=== PATIENT | male | born 1960 | race African-American/Black ===

== ENCOUNTER 2019-09-06 20:53 | Inpatient (IN) | payer MEDICARE ==
[~2019-09-06 20:53] MED LIST: Iopamidol 370 76% 100 ML VIAL ONE
[2019-09-06] MEDS ORDERED: Fentanyl 100 MCG/2 ML VIAL ONE (21:09)
[2019-09-06] MEDS ORDERED: Norepinephrine 8 MG in Dextrose 5% in Water 242 ML IVPB PRN (21:14)
[2019-09-06] MEDS ORDERED: fentaNYL Citrate/PF 2,000 MCG in Sodium Chloride 0.9% 60 ML IV SCH (21:15)
--- NOTE | 2019-09-06 21:16 | RAD ---
Chest AP view INDICATION: Found down and unresponsive COMPARISON: Prior exam dated July 18, 2019 FINDINGS: Lungs:There is perihilar airspace opacities. Cardiac silhouette:There is moderate cardiomegaly Pulmonary vasculature:Vasculature there is prominent pulmonary vascular congestion Pleural spaces:No pleural effusion or pneumothorax is demonstrated. Upper abdomen:No abnormality seen. Osseous structures: No acute osseous abnormality. Additional findings:The patient is intubated with the ET tube tip is seen 5.3 cm from the johanny. IMPRESSION: Moderate cardiomegaly, prominent pulmonary vascular congestion and perihilar edema.
[2019-09-06 21:19] LABS: #Eosinphils 0.1 thou/uL (0.0-0.7); #Lymphocytes 0.7 thou/uL (1.20-3.40); #Monocytes 0.3 thou/uL (0.11-0.59); %Basophils 0.2 % (0.0-1.0); %Eosinophils 1.3 % (0.0-10.0); %Lymphocytes 13.1 % (21.0-51.0); %Monocytes 6.5 % (0.0-10.0); %Neutrophils 78.9 % (42.0-75.0); Hemoglobin 8.7 g/dL (14.0-18.0); Mean Corpuscular HGB CONC 31.8 g/dL (32.0-36.0); Mean Corpuscular Hemoglobin 30.5 pg (27.0-31.0); Mean Corpuscular Volume 96.1 fL (78.0-98.0); Mean Platelet Volume 8.6 fL (7.4-10.4); Platelet Count 150 thou/uL (130-400); Red Blood Cell (RBC) Count 2.86 mill/uL (4.70-6.10); White Blood Cell (WBC) Count 5.1 thou/uL (4.8-10.8)
[2019-09-06 21:29] LABS: PTT 65.5 SEC (22.9-36.1)
[2019-09-06 21:37] LABS: D-Dimer Test 11.94 *mcg/mL (0.27-0.43)
[2019-09-06 21:42] LABS: Phosphorus 4.3 mg/dL (2.3-4.7); Prothrombin Time 88.6 SEC (12.0-14.7)
[2019-09-06 21:43] LABS: INR-International Normal Ratio 11.7
[2019-09-06 21:46] LABS: ALT (SGPT) 170 U/L (8-55); AST (SGOT) 258 U/L (5-34); Albumin 3.3 g/dL (3.5-5.0); Alkaline Phosphatase 121 U/L (40-110); Anion Gap 17 mmol/L (10-20); BUN (Urea Nitrogen) 30 mg/dL (8.4-25.7); Bilirubin, Total 0.6 mg/dL (0.2-1.2); CK (CPK) 80 U/L (30-200); Calc. Creatinine Clearance 0 mL/min (70-130); Calcium 8.4 mg/dL (7.8-10.44); Carbon Dioxide 30 mmol/L (22-29); Chloride 100 mmol/L (98-107); Estimated GFR-MDRD 38; Globulin 3.1 g/dL (2.4-3.5); Glucose 134 mg/dL (70-105); Magnesium 1.8 mg/dL (1.6-2.6); Potassium 4.7 mmol/L (3.5-5.1); Protein, Total 6.4 g/dL (6.0-8.3); Sodium 142 mmol/L (136-145)
--- NOTE | 2019-09-06 21:52 | RAD ---
Chest AP view INDICATION: Central line placement COMPARISON: September 06, 2019 at 8:59 PM FINDINGS: Lungs:There is worsening perihilar airspace opacities Cardiac silhouette:Cardiomegaly persists Pulmonary vasculature:Prominent Pleural spaces:No pleural effusion or pneumothorax is demonstrated. Upper abdomen:No abnormality seen. Osseous structures: No acute osseous abnormality. Additional findings:ET tube tip is unchanged. There is a new right IJ central venous catheter project ing in the region of the SVC. IMPRESSION: Worsening bilateral perihilar airspace opacities suspicious for worsening edema. ET tube and right IJ central venous catheter as above.
[2019-09-06] MEDS ORDERED: Furosemide 40 MG/4 ML VIAL ONE (22:03)
[2019-09-06 22:15] LABS: Actual Bicarbonate (HCO3a) 35.1 mEq/L (22-28); Analyzer IN Cardio ER; Calcium, Ionized 1.12 mmol/L (1.12-1.30); Carboxyhemoglobin (COHb) 0.4 gm% (0.0-3.0); Hemoglobin (Hb) 10.8 g/dL (14.0-18.0); O2 Tension (PaO2) 154.1 mmHg (> 80.0); Potassium - ABG Lab 4.19 mmol/L (3.70-5.30); pH, Arterial 7.37 (7.35-7.45)
[2019-09-06] MEDS ORDERED: ADMIXTURE FEE IV SCH (22:15)
[2019-09-06] MEDS ORDERED: HUMAN PROTHROMBIN COMPLX IV SCH (22:15)
[2019-09-06 22:26] LABS: CO2 Tension 62.8 mmHg (35.0-45.0); Puncture Site ALINE
[2019-09-06] MEDS ORDERED: Cefepime 2 GM VIAL ONE (22:29)
[2019-09-06 22:43] LABS: Free T4 (Free Thyroxine) 0.87 ng/dL (0.70-1.48); Thyroid Stimulating Hormone 1.7251 uIU/mL (0.35-4.94)
--- NOTE | 2019-09-06 23:12 | CT ---
CT Brain WO Con: 09/06/2019 8:59 PM CLINICAL HISTORY: Altered mental status and unresponsive after CPR. IMAGING TECHNIQUE: Multiple CT images were obtained of the brain without IV contrast. COMPARISON: None. FINDINGS: Brain: No acute infarct or hemorrhage is evident. No midline shift. There is moderate to severe chr onic small vessel white matter ischemic change involving the region of the paramedian thiago and both cerebral hemispheres. Ventricles: Normal. No hydrocephalus.. There is a cavum septum pellucidum. Skull: Intact.. Visualized Paranasal sinuses: Clear.. Mastoid air cells:Clear. Extracranial soft tissues:Normal. IMPRESSION: No acute intracranial abnormality. Moderate to severe chronic small vessel white matter ischemic peña ge.
--- NOTE | 2019-09-06 23:17 | CT ---
CTA Angio Chest W WO Con 09/06/2019 9:00 PM Indication: Unresponsive following CPR Technique: Multiple CTA images were obtained of the thorax with IV contrast. 3-D rendering: MIP mercedes nstructed images were created and reviewed. Comparison: Prior CT PE dated July 18, 2019 Findings: Pulmonary arteries: No central or segmental pulmonary embolus is evident. Heart and Aorta: Normal appearing. Mediastinum:There is a right IJ central venous catheter and ET tube tip. There is a gastric catheter coiled within the proximal esophagus. Lungs:There is bilateral lower lobe airspace consolidation. There is perihilar edema. Pleural space: There are small bilateral pleural effusions. Upper Abdomen: There is an IVC filter within the suprarenal IVC. Osseous Structures: No acute osseous abnormality. There is scattered degenerative and osteoarthritic change present. Soft tissues:No abnormality. Other findings:None. Impression: No central or segmental pulmonary embolus. Bibasilar airspace consolidation suspicious for aspiration. Bilateral perihilar airspace edema with bilateral pleural effusions consistent with CHF. Gastric catheter coiled within the proximal esophagus. IVC filter within the suprarenal IVC.
--- NOTE | 2019-09-06 23:23 | CT ---
CT OF THE ABDOMEN AND PELVIS WITH IV CONTRAST INDICATION: History of bradycardic arrest and unresponsiveness after CPR COMPARISON: None FINDINGS: ABDOMEN: Lung bases: Bibasilar airspace consolidation with small bilateral pleural effusions. There is a small pericardial effusion Liver: There is edema surrounding the liver. No focal hepatic lesion. There is a suprarenal IVC filte r. Gallbladder: Gallbladder wall is thickened small stone. Pancreas: Normal. Adrenal glands: Normal. Spleen: Normal. Kidneys and ureters: There is a horseshoe kidney. No hydronephrosis. Vasculature: There is an endovascular stent projecting in the region of the left common iliac vein. Lymph nodes:No lymphadenopathy. Free fluid in abdomen:There is mild free fluid within the abdomen and pelvis. PELVIS: Small and large bowel: There are scattered colonic diverticula without evidence of active diverticuli tis. Appendix:Normal Bladder: Decompressed with a Suarez catheter Rectal and perirectal soft tissues:Normal. Reproductive structures: Normal. Free fluid in pelvis: Mild free fluid in the pelvis Lymphadenopathy pelvis: Shotty appearing pelvic lymph nodes are present. Osseous structures: No acute osseous abnormality. No destructive osteolytic or osteoblastic lesion i s identified. There is scattered degenerative and osteoarthritic changes. Soft tissues:There is a vascular catheter that projects to the level of the right common femoral rafy ry on image 77 of series 3. It is difficult to determine if this catheter is within the right common femoral artery. There is diffuse mild anasarca. IMPRESSION: 1. Bibasilar airspace consolidation small bilateral pleural effusions. Consolidations are suspicious for aspiration. 2. Small pericardial effusion. Mild ascites and anasarca. 3. Cholelithiasis. There is mild gallbladder wall thickening which may be related to the cardiac dysf unction. 4. IVC filter an endograft stent in the left common iliac vein. There is a central venous catheter pr ojects to the level of the right common femoral artery. Recommend correlation. 5. Horseshoe kidney without evidence of hydronephrosis
[2019-09-06] MEDS ORDERED: Phytonadione 10 MG in Sodium Chloride 0.9% 50 ML IVPB SCH (23:45)
[2019-09-06 23:54] LABS: Bilirubin Negative (Negative); Blood, Urine 2+ (Negative); Clarity Clear (Clear); Glucose, Urine (Dipstick) Normal (Negative); Leukocyte 25 Leu/uL (Negative); Mucous/LPF Rare LPF (<2+); Nitrite Negative (Negative); Protein, Urine (Dipstick) 10 mg/dL (Neg-Trace); RBC/HPF 0-3 HPF (0-3); Squamous Epithelial 0-3 HPF (0-3); Urobilinogen Normal mg/dL (Less than 2)
[2019-09-06 23:59] LABS: Amphetamine Not Detected (NotDetected); Barbiturates Screen Not Detected (NotDetected); Benzodiazepine Screen Not Detected (NotDetected); Cocaine Metabolite Screen Not Detected (NotDetected); Medtox Control Line Valid? VALID (VALID); Medtox Reader # READER 4; Methadone Not Detected (NotDetected); Methamphetamine Not Detected (NotDetected); Opiate Screen Not Detected (NotDetected); Oxycodone Screen Not Detected (NotDetected); Phencyclidine (PCP) Not Detected (NotDetected); THC/Cannabinoid Screen Not Detected (NotDetected); Tricyclic Screen Not Detected (NotDetected)
[2019-09-07] LABS: Bacteria/HPF 1+ HPF (None Seen)
[2019-09-07] MEDS ORDERED: Morphine 2 MG/ML SYRINGE SLOW IVP PRN ×2 (00:29→01:11)
[2019-09-07] MEDS ORDERED: DISCONTINUE PREVIOUS NARCOTIC PAIN MEDICATIONS AND BENZODIAZEPINES FS SCH ×2 (00:29→01:11)
[2019-09-07] MEDS ORDERED: Propofol BOLUS 1,000 MG/100 ML VIAL IV PRN ×2 (00:29→01:11)
[2019-09-07] MEDS ORDERED: Propofol 1,000 MG/100 ML VIAL IV PRN ×2 (00:29→01:11)
[2019-09-07] MEDS ORDERED: Lorazepam 2 MG/ML VIAL SLOW IVP PRN ×2 (00:29→01:11)
[2019-09-07] MEDS ORDERED: Fentanyl BOLUS 250 ML IVPB PRN ×2 (00:29→01:11)
[2019-09-07] MEDS ORDERED: Nitroglycerin 50 MG/250 ML BOT 250 ML IVPB SCH (00:45)
[2019-09-07] MEDS ORDERED: EPINEPHrine 1 MG, Admixture Fee 1 EACH in Dextrose 5% in Water 250 ML IVPB SCH (00:45)
[2019-09-07] MEDS ORDERED: ALL FLUIDS SHOULD BE DEXTROSE FREE IF POSSIBLE FS SCH (00:45)
[2019-09-07] MEDS ORDERED: Vecuronium 10 MG VIAL IV PRN (00:45)
[2019-09-07] MEDS ORDERED: Acetaminophen 1,000 MG in Premix Bag 1 BAG IVPB PRN ×2 (00:45→20:34)
[2019-09-07] MEDS ORDERED: DO NOT USE PRE-EXISTING LYTE PROTOCOL FS SCH (00:45)
[2019-09-07] MEDS ORDERED: Norepinephrine 8 MG/0.9% NS 250 ML IVPB SCH (01:06)
[2019-09-07] MEDS ORDERED: HumaLOG 300 UNITS/3 ML VIAL SC PRN (01:06)
[2019-09-07] MEDS ORDERED: Dextrose 50% Abboject 50 ML SYRINGE SLOW IVP PRN (01:06)
[2019-09-07] MEDS ORDERED: Ondansetron PF 4 MG/2 ML Vial IVP PRN (01:06)
[2019-09-07] MEDS ORDERED: Ventilator Sedation Protocol 1 EACH FS SCH (01:06)
[2019-09-07] MEDS ORDERED: Dextrose 5% in Water 1,000 ML IV PRN (01:06)
[2019-09-07] MEDS ORDERED: Ondansetron ODT 4 MG TAB PO PRN (01:06)
[2019-09-07 01:08] LABS: Troponin I 0.035 ng/mL (< 0.028)
[2019-09-07] MEDS ORDERED: Norepinephrine 8 MG in Dextrose 5% in Water 242 ML IVPB SCH (01:15)
[2019-09-07] MEDS: Sodium Chloride 0.9% 1,000 ML IV SCH ×4 (01:31→21:17)
[2019-09-07 02:34] LABS: Actual Bicarbonate (HCO3a) 31.8 mEq/L (22-28); Base Excess (BEa) 5.9 mEq/L (-2.0 to +3.0); CO2 Tension 52.4 mmHg (35.0-45.0); Calcium, Ionized 1.11 mmol/L (1.12-1.30); Carboxyhemoglobin (COHb) 0.7 gm% (0.0-3.0); O2 Tension (PaO2) 116.8 mmHg (> 80.0); Potassium - ABG Lab 4.53 mmol/L (3.70-5.30)
[2019-09-07 02:36] LABS: Puncture Site RRADIAL
--- NOTE | 2019-09-07 03:03 | HP ---
CHIEF COMPLAINT: He was found down. HISTORY OF PRESENT ILLNESS: The history of present illness is taken primarily from conversation with the emergency room staff and review of the records as the patient is currently intubated and unable to give me any history, and the family is currently not at the bedside. But, Mr. Ortega apparently was found down by his . She had seen him normal just a few minutes before. Apparently, she left the room and he was awake and alert, but came back and found him unresponsive. She reported that he had been feeling short of breath and extremely tired over the last few days. When he was found down, she called EMS. It is unclear whether or not she started CPR at that time. However, when the EMS arrived, they found him pulseless and apneic. They started CPR with chest compressions and gave him a dose of epinephrine and he had return of spontaneous circulation. When he got to the emergency room here, he was found to be in an undetermined rhythm and noticed that his heart rate started to drop as well as his blood pressure. He again underwent CPR with a round of CPR in a dose of epinephrine and then he came back once again. This time, he was intubated and placed on Levophed as well as an epinephrine drip. He is currently being admitted for further evaluation. Otherwise, no other history is obtainable. REVIEW OF SYSTEMS: Also unobtainable due to the patient being intubated. PAST MEDICAL HISTORY: Significant for congestive heart failure, diastolic type; hypertension; history of DVT; diabetes mellitus; and hypercholesterolemia. PAST SURGICAL HISTORY: He has had an IVC filter placed. FAMILY HISTORY: Significant for hypertension and diabetes. SOCIAL HISTORY: He is a former smoker. He does drink beer occasionally. He is , has 2 children. FAMILY HISTORY: Significant for hypertension and diabetes. CURRENT MEDICATIONS: Unknown. PHYSICAL EXAMINATION: GENERAL: He is intubated and currently unresponsive. He is atraumatic and normocephalic. His blood pressure is approximately 110/70 on Levophed, heart rate is in the 70s. HEENT: His pupils are reactive. NECK: There is no adenopathy. No jugular venous distention. LUNGS: He has bilateral rales throughout most of the lung jay as well as some rhonchi. CARDIOVASCULAR: Heart rate is a bit rapid. A slight grade 2/6 systolic murmur. ABDOMEN: Obese, tympanic to percussion and bowel sounds are hypoactive. EXTREMITIES: He has massive lower extremity edema going up to above the knees. NEUROLOGIC: Reported to have been moving all extremities. SKIN AND INTEGUMENT: No skin changes, no rash. LABORATORY DATA: White blood cell count 5.1, hemoglobin 8.7, hematocrit is 27.5, and platelet count is 150. INR was 11.7. His ABG, pH is 7.37, pCO2 of 62.8, PO2 is 154. Chemistry, the sodium is 142, potassium 4.7, chloride is 100, CO2 is 30, BUN of 30, creatinine of 2.14, glucose is 134, AST is 258, ALT 170, alkaline phosphatase is 121. Lactic acid 1.7. Troponin is 0.023. He had a chest x-ray which showed cardiomegaly with increased pulmonary vascular markings, this is by my reading. He had a CT angiogram of the chest again showing increased pulmonary vascular markings and some changes associated with possible aspiration. I did not see his EKG, but it is being read as atrial fibrillation with rapid ventricular response and the heart rate was 120. He had a CT scan of the brain showing no acute abnormality and there was some [id number] chronic ischemic white matter change. ASSESSMENT: 1. This is a 58-year-old gentleman who was brought to the hospital after suffering a cardiac arrest at home. It appears as if he was massively volume overloaded with jasmyne pulmonary edema. This is despite having a normal BNP. He may also have an aspiration pneumonia on top of this. It was also noted that his pCO2 was elevated and he was hypoventilating. He will be admitted to the ICU for post cardiac arrest. He has already been started on the hypothermic protocol. We will continue vasopressors to support his blood pressure and consult Cardiology as well as Pulmonology. We will also repeat an echocardiogram (his last echo was in July and at that time, his ejection fraction was 55% to 60% and showed 2/3 diastolic dysfunction). 2. Acute on chronic kidney injury. This is likely related to the cardiac insult. We will need to trend his creatinine and if necessary, get a renal ultrasound. 3. Supratherapeutic INR. We will be holding his Coumadin for now. There are no signs of active bleeding. We can therefore trend his INR and hopefully, this should return to normal. We may also go ahead and give him an IV dose of vitamin K. 4. Atrial fibrillation with rapid ventricular response. Currently, his heart rate has improved. Right now, maintaining an adequate mean arterial pressure is most important and therefore we will continue the Levophed and epinephrine. Hopefully, his heart rate will stay within a reasonable range. 5. Possible pneumonia. We will treat empirically for aspiration with Zosyn and consider adding vancomycin. 6. Diabetes mellitus. We will treat with the sliding scale insulin. Otherwise, further recommendations will depend on the results of his test and his clinical course over the next 24-48 hours. He is at risk for anoxic brain injury given the [id number] arrest. Job ID: [id number]
[2019-09-07 05:17] LABS: INR-International Normal Ratio 1.7; PTT 36.4 SEC (22.9-36.1); Prothrombin Time 19.9 SEC (12.0-14.7)
[2019-09-07] MEDS: Piperacillin/Tazobactam 3.375 GM in Sodium Chloride 0.9% 100 ML IVPB SCH ×3 (05:17→17:07)
[2019-09-07 05:22] LABS: Band 16 % (5-11); Hemoglobin 10.2 g/dL (14.0-18.0); Hypochromia SLIGHT = 6-15 cells (100X) (0-5/hpf); Lymphocytes 7 % (21-51); MDiff Complete? YES; Mean Corpuscular Hemoglobin 30.1 pg (27.0-31.0); Mean Corpuscular Volume 94.3 fL (78.0-98.0); Mean Platelet Volume 8.6 fL (7.4-10.4); Monocytes 3 % (0-10); Neutrophil 74 % (42-75); Platelet Count 159 thou/uL (130-400); Platelet Morphology Comment Appears Adequate; RBC Distribution Width 12.2 % (11.5-14.5); White Blood Cell (WBC) Count 7.3 thou/uL (4.8-10.8)
[2019-09-07 05:34] LABS: Magnesium 1.7 mg/dL (1.6-2.6); Phosphorus 3.1 mg/dL (2.3-4.7)
[2019-09-07 05:54] LABS: CKMB 4.6 ng/mL (0-6.6)
[2019-09-07 07:02] LABS: Actual Bicarbonate (HCO3a) 32.2 mEq/L (22-28); Base Excess (BEa) 6.4 mEq/L (-2.0 to +3.0); CO2 Tension 52.3 mmHg (35.0-45.0); Carboxyhemoglobin (COHb) 0.5 gm% (0.0-3.0); Hemoglobin (Hb) 10.7 g/dL (14.0-18.0); O2 Tension (PaO2) 102.1 mmHg (> 80.0); Potassium - ABG Lab 4.41 mmol/L (3.70-5.30); pH, Arterial 7.41 (7.35-7.45)
[2019-09-07 07:04] LABS: ALV-art Gradient 402.925 (0-20); Puncture Site RRAD
[2019-09-07 08:43] LABS: INR-International Normal Ratio 1.6; PTT 38.4 SEC (22.9-36.1); Prothrombin Time 18.9 SEC (12.0-14.7)
--- NOTE | 2019-09-07 09:07 | CON ---
DATE OF CONSULTATION: 09/07/2019 CONSULTING PHYSICIAN: Anthony Sprague MD REASON FOR CONSULTATION: Critical care management. This encompasses 45 minutes of critical care time. HISTORY OF PRESENT ILLNESS: Mr. Ortega is a 58-year-old male, who was found down at home by his . The duration of downtime was unknown. It does not appear that CPR was started prior to EMS arriving. EMS started CPR, intubated the patient, placed him on vasopressors. The patient had return of spontaneous circulation. He is currently under therapeutic hypothermia. PAST MEDICAL HISTORY: 1. Diastolic congestive heart failure. 2. Hypertension. 3. Deep venous thrombosis. 4. Diabetes mellitus, type 2. 5. Hyperlipidemia. PAST SURGICAL HISTORY: IVC filter placement. ALLERGIES: NONE. MEDICATIONS: At his last discharge in July, he was on; 1. Levemir 20 units subcu twice daily. 2. Norvasc 10 mg daily. 3. Atorvastatin 40 mg daily. 4. Coreg 25 mg twice daily. 5. Lasix 40 mg daily. 6. Neurontin 400 mg 3 times daily. 7. Hydralazine 100 mg twice daily. 8. Isordil 5 mg twice daily. 9. Lisinopril 10 mg daily. 10. Coumadin 7.5 mg daily. FAMILY MEDICAL HISTORY: Remarkable for hypertension. SOCIAL HISTORY: Former smoker. Occasionally drinks alcohol. No history of drug use. REVIEW OF SYSTEMS: Cannot be obtained as he is currently on mechanical ventilation. PHYSICAL EXAMINATION: VITAL SIGNS: Pulse 97, blood pressure 109/72, O2 saturation 99%, respiratory rate 20, and his temperature is 33.1 Celsius. NEUROLOGICAL: He will open eyes, without blink to threat. Pupils are 2 mm, not reactive to light. He does have some spontaneous movement of his thumb. He had no profound withdrawal reflex that I could see on his arms or legs. He did have a positive gag. HEENT: Otherwise, unremarkable. NECK: No adenopathy or JVD. CHEST: Diminished breath sounds at the bases. CARDIAC: S1 and S2. Irregularly irregular. ABDOMEN: Obese, soft, and nontender. EXTREMITIES: Edematous feet and ankles. LABORATORY DATA: White blood cell count 7.3, hematocrit 32, platelet count 159, with 74% neutrophils, 16% bands. INR is 1.7 after being 11.7 when he presented. D-dimer 11.94. PH of 7.41, pCO2 of 52, pO2 of 102 on SIMV rate 20, tidal volume 500, PEEP 10, pressure support 10, and FiO2 of 80%. Sodium 142, potassium 4.7, chloride 100, CO2 of 30, BUN 30, creatinine 2.1, glucose 134, AST 258, and ALT 170. Troponin 0.023. Lactate was originally 1.7. TSH 1.72. Urinalysis demonstrates few white cells, some protein. Tox screen was negative. IMAGING DATA: His CT of the chest shows bilateral lower lobe infiltrates versus atelectasis. He has small bilateral effusions. He has cardiomegaly. He has a right IJ central line. CT of the brain showed no acute abnormality except for [id number] chronic small vessel white matter ischemic change. CT of the abdomen and pelvis shows some cholelithiasis, IVC filter, and horseshoe kidney. ASSESSMENT: 1. Status post cardiac arrest, etiology undetermined. 2. Anoxic brain injury from prolonged downtime. 3. Bilateral infiltrative changes suggestive of either atelectasis, pneumonia. 4. Bilateral effusions. 5. Diastolic congestive heart failure. 6. Acute on chronic renal insufficiency. PLAN: 1. The patient will remain on therapeutic hypothermia with the sole goal being prevention of fever. The goal temperature should be about 96 degrees Fahrenheit with subsequent slow rewarming after that. 2. Monitor laboratory data. 3. I have adjusted mechanical ventilation settings. 4. Add Pepcid for GI prophylaxis. 5. Hold tube feedings until tomorrow. 6. I spoke with at bedside. Prognosis is predicated on the patient's neurologic recovery. Job ID: [id number]
[2019-09-07 09:10] LABS: CKMB 6.7 ng/mL (0-6.6)
[2019-09-07 09:19] LABS: Magnesium 1.8 mg/dL (1.6-2.6); Phosphorus 3.1 mg/dL (2.3-4.7)
--- NOTE | 2019-09-07 09:46 | RAD ---
FRONTAL VIEW CHEST: CLINICAL HISTORY: Ventilated patient. FINDINGS: There is a right internal jugular venous catheter with tip overlying the SVC. Endotracheal tube is p resent with the tip below the thoracic inlet. There is an enteric catheter traversing to the abdomen , the distal aspect of which is not discerned on the basis of this exam. Hazy densities of the lungs are present bilaterally favoring edema with enlargement of the cardiac silhouette and engorgement of the pulmonary vasculature. There is a pleural-based density at the inferior right chest indicative of pleural fluid. Partial obscuration of left hemidiaphragm also indicates left basilar opacity. IMPRESSION: 1. Findings of fluid overload. Superimposed consolidation related to pneumonia is not excluded, how ever. 2. Continued followup to resolution is recommended. POS: C
[2019-09-07] MEDS: Famotidine/PF 20 mg/2ml Vial SLOW IVP SCH (09:57)
[2019-09-07] MEDS: Vancomycin HCl 1 GM in Premix Bag 1 BAG IVPB SCH ×2 (09:57→21:36)
[2019-09-07] MEDS ORDERED: EPINEPHRINE IN SOD CHLOR,ISO 1 MG/10 ML SYRINGE IV ONE (11:11)
[2019-09-07] MEDS ORDERED: Sodium Bicarb 50 MEQ/50 ML Abboject 8.4% SYRINGE ONE (11:11)
[2019-09-07 11:54] LABS: Troponin I 0.175 ng/mL (< 0.028)
--- NOTE | 2019-09-07 12:20 | CON ---
DATE OF CONSULTATION: HISTORY OF PRESENT ILLNESS: This is a 58-year-old gentleman, who suffered a cardiopulmonary arrest. The patient has a history of hypertension, diabetes mellitus, and atrial fibrillation. The patient was apparently in his usual state of health when he suddenly lost consciousness. The patient was found apparently to be in asystole. He received a dose of epinephrine. The patient was transferred and admitted to the ICU for further evaluation. The patient is intubated and unable to give a history. No family is available at this time. PAST MEDICAL HISTORY: Hypertension, diabetes mellitus, and dyslipidemia. PAST SURGICAL HISTORY: IVC filter. MEDICATIONS: See nursing list. ALLERGIES: NO KNOWN DRUG ALLERGIES. PHYSICAL EXAMINATION: GENERAL: Obtunded gentleman. VITAL SIGNS: Blood pressure of 146/89. NECK: No jugular venous distention. LUNGS: Coarse breath sounds bilateral. HEART: Irregular rate and rhythm. Normal S1 and S2. ABDOMEN: Nondistended. EXTREMITIES: Showed mild edema. LABORATORY RESULTS: His sodium was 142, potassium 4.7, chloride 100, bicarbonate 30, BUN 30, creatinine 2.1, and AST 258. His white blood cell count of 7.3, hemoglobin 10.2, hematocrit 32.0, and his platelets are 159. INR was 1.6. IMAGING DATA: His EKG revealed atrial fibrillation with a rapid ventricular response. IMPRESSION: 1. Status post cardiopulmonary arrest. 2. Permanent atrial fibrillation. 3. Hypertension. 4. Diabetes mellitus. PLAN: This gentleman suffered a cardiac arrest. There is no evidence of an acute myocardial infarction based on his cardiac enzymes and electrocardiogram. He has a history of an IVC filter. It showed he unlikely suffered a pulmonary embolism. From a cardiac standpoint, we will check an echocardiogram to evaluate his left ventricular function. We will follow this patient with you through his hospitalization. Job ID: [id number] MTDD
[2019-09-07] MEDS: fentaNYL Citrate/PF 2,000 MCG in Sodium Chloride 0.9% 60 ML IV SCH (14:55)
--- NOTE | 2019-09-07 15:09 | PDOC.HOSPP ---
- Subjective Encounter Date: 09/07/19 Encounter Time: 11:00 - Objective Vital Signs & Weight: Vital Signs (12 hours) Pulse Resp Pulse Ox 09/07/19 14:13 71 09/07/19 12:00 20 09/07/19 10:33 95 09/07/19 10:00 20 09/07/19 08:00 20 98 09/07/19 07:05 100 09/07/19 06:00 21 H 09/07/19 04:00 20 Weight Admit Weight 279 lb 5.211 oz Weight 279 lb 5.211 oz Most Recent Monitor Data Heart Rate from ECG 69 NIBP 121/67 NIBP BP-Mean 85 Respiration from ECG 20 SpO2 100 I&O: 09/06/19 09/07/19 09/08/19 06:59 06:59 06:59 Intake Total 337.6 Output Total 340 105 Balance -2.4 -105 Result Diagrams: 09/07/19 04:57 09/06/19 21:10 Additional Labs: Accuchecks 09/07/19 09/07/19 10:26 06:35 POC Glucose 125 H 139 H Hospitalist ROS - Review of Systems ROS unobtainable: due to mental status (Not responsive to any stimulus..intubated) - Medication Medications: Active Medications Generic Name Dose Route Start Last Admin Trade Name Tiffanie PRN Reason Stop Dose Admin Famotidine 20 mg 09/07/19 09:00 09/07/19 09:57 Pepcid SLOW IVP 20 mg DAILY LEEANN Administration Phytonadione 10 mg/ Sodium 51 mls @ 204 mls/hr 09/06/19 23:45 09/07/19 01:30 Chloride IVPB 09/08/19 00:45 51 mls NOW LEEANN Administration Sodium Chloride 1,000 mls @ 50 mls/hr 09/07/19 01:15 09/07/19 01:31 Normal Saline 0.9% IV 1,000 mls .Q20H LEEANN Administration Piperacillin Sod/Tazobactam 100 mls @ 200 mls/hr 09/07/19 06:00 09/07/19 12: 37 Sod 3.375 gm/ Sodium Chloride IVPB 100 mls Q6HR LEEANN Administration Fentanyl Citrate 2,000 mcg/ 100 mls @ 0 mls/hr 09/07/19 01:11 09/07/19 14:55 Sodium Chloride IV 12/01/19 01:11 100 mls INF LEEANN Administration Protocol Per Protocol Vancomycin HCl 1 gm/ Device 200 mls @ 200 mls/hr 09/07/19 10:00 09/07/19 09: 57 IVPB 200 mls 1000,2200 LEEANN Administration Sodium Chloride 10 ml 09/07/19 09:00 09/07/19 09:57 Flush - Normal Saline IVF 10 ml Q12HR LEEANN Administration - Exam Eye - other findings: Sluggish reaction to light... keeps his eyes open. Heart: RRR Respiratory: no ronchi Gastrointestinal: soft Extremities: 2+ LE edema Neurological - other findings: no response to painful stimuli.. Hosp A/P (1) Cardiac arrest Code(s): I46.9 - CARDIAC ARREST, CAUSE UNSPECIFIED Status: Acute Plan: with possible anoxic encephalopathy.. On hypothermic blanket now.. (2) Pulmonary edema Code(s): J81.1 - CHRONIC PULMONARY EDEMA Status: Acute Plan: secondary to cardiac arrest.. ?superimposed pneumonia , on antibiotics (3) Acute kidney injury superimposed on CKD Code(s): N17.9 - ACUTE KIDNEY FAILURE, UNSPECIFIED; N18.9 - CHRONIC KIDNEY DISEASE, UNSPECIFIED Status: Acute Plan: due to low bp.. (4) Atrial fibrillation Code(s): I48.91 - UNSPECIFIED ATRIAL FIBRILLATION Status: Acute Plan: rate controlled.. (5) Diabetes Code(s): E11.9 - TYPE 2 DIABETES MELLITUS WITHOUT COMPLICATIONS Status: Acute Plan: on sliding scale. - Plan Continue supportive therapy.. f/u with consultants..
[2019-09-07 15:37] LABS: INR-International Normal Ratio 1.4; Prothrombin Time 17.2 SEC (12.0-14.7)
[2019-09-07 15:38] LABS: PTT 35.6 SEC (22.9-36.1)
[2019-09-07 16:31] LABS: Magnesium 1.7 mg/dL (1.6-2.6); Phosphorus 2.6 mg/dL (2.3-4.7)
[2019-09-07] MEDS ORDERED: Artificial Tears 18 DROP/0.9 ML EA EYE PRN (16:35)
[2019-09-07 16:59] LABS: CKMB 14.7 ng/mL (0-6.6)
[2019-09-07 20:43] LABS: INR-International Normal Ratio 1.4; PTT 37.2 SEC (22.9-36.1); Prothrombin Time 16.7 SEC (12.0-14.7)
[2019-09-07 20:53] LABS: Band 28 % (5-11); Hemoglobin 9.9 g/dL (14.0-18.0); Lymphocytes 14 % (21-51); MDiff Complete? YES; Mean Corpuscular HGB CONC 32.5 g/dL (32.0-36.0); Mean Corpuscular Hemoglobin 29.9 pg (27.0-31.0); Mean Corpuscular Volume 92.1 fL (78.0-98.0); Monocytes 6 % (0-10); Neutrophil 52 % (42-75); Platelet Count 132 thou/uL (130-400); Platelet Morphology Comment Appears Adequate; RBC Distribution Width 12.1 % (11.5-14.5); Red Blood Cell (RBC) Count 3.31 mill/uL (4.70-6.10); White Blood Cell (WBC) Count 5.8 thou/uL (4.8-10.8)
[2019-09-07 20:57] LABS: Anion Gap 14 mmol/L (10-20); BUN (Urea Nitrogen) 34 mg/dL (8.4-25.7); CK (CPK) 976 U/L (30-200); Calc. Creatinine Clearance 66 mL/min (70-130); Calcium 8.7 mg/dL (7.8-10.44); Carbon Dioxide 33 mmol/L (22-29); Chloride 100 mmol/L (98-107); Estimated GFR-MDRD 39; Magnesium 1.7 mg/dL (1.6-2.6); Phosphorus 2.4 mg/dL (2.3-4.7); Potassium 3.9 mmol/L (3.5-5.1); Sodium 143 mmol/L (136-145)
[2019-09-07 21:09] LABS: Glucose 48 mg/dL (70-105)
[2019-09-07 21:31] LABS: CKMB 15.3 ng/mL (0-6.6)
[2019-09-08] MEDS: Piperacillin/Tazobactam 3.375 GM in Sodium Chloride 0.9% 100 ML IVPB SCH ×4 (00:50→21:35)
[2019-09-08] MEDS: Dextrose 10% in Water 1,000 ML IV SCH ×2 (00:51→21:39)
[2019-09-08 01:02] LABS: Anion Gap 12 mmol/L (10-20); BUN (Urea Nitrogen) 36 mg/dL (8.4-25.7); Calc. Creatinine Clearance 65 mL/min (70-130); Calcium 8.5 mg/dL (7.8-10.44); Carbon Dioxide 35 mmol/L (22-29); Chloride 101 mmol/L (98-107); Estimated GFR-MDRD 38; Glucose 76 mg/dL (70-105); Potassium 3.7 mmol/L (3.5-5.1); Sodium 144 mmol/L (136-145)
[2019-09-08 04:44] LABS: INR-International Normal Ratio 1.4; PTT 42.2 SEC (22.9-36.1); Prothrombin Time 16.9 SEC (12.0-14.7)
[2019-09-08 04:59] LABS: Anion Gap 13 mmol/L (10-20); BUN (Urea Nitrogen) 33 mg/dL (8.4-25.7); Calc. Creatinine Clearance 65 mL/min (70-130); Calcium 8.4 mg/dL (7.8-10.44); Carbon Dioxide 32 mmol/L (22-29); Chloride 100 mmol/L (98-107); Estimated GFR-MDRD 38; Glucose 69 mg/dL (70-105); Potassium 3.2 mmol/L (3.5-5.1); Sodium 142 mmol/L (136-145)
[2019-09-08 06:45] LABS: Actual Bicarbonate (HCO3a) 31.4 mEq/L (22-28); Base Excess (BEa) 8.6 mEq/L (-2.0 to +3.0); CO2 Tension 36.3 mmHg (35.0-45.0); Calcium, Ionized 1.07 mmol/L (1.12-1.30); Carboxyhemoglobin (COHb) 0.7 gm% (0.0-3.0); Hemoglobin (Hb) 9.9 g/dL (14.0-18.0); O2 Tension (PaO2) 73.3 mmHg (> 80.0); Potassium - ABG Lab 3.35 mmol/L (3.70-5.30)
[2019-09-08 07:04] LABS: ALV-art Gradient 202.175 (0-20); Puncture Site RRAD; pH, Arterial 7.56 (7.35-7.45)
--- NOTE | 2019-09-08 07:35 | RAD ---
XR Chest 1 View Portable History: Pneumonia Comparison: Radiograph prior day Findings: Exam is limited due to overlying artifact. Heart size markedly enlarged. Moderate pulmonary edema. Small effusions. Endotracheal tube tip just below the level of the clavicles. Right IJ central venous catheter is similar. A linear radiopacity projected left hemithorax likely eccentric t o the patient and less likely a thoracostomy tube. Impression: Progressive pulmonary edema and pleural effusions.
[2019-09-08] MEDS ORDERED: CCU Electrolyte Replacement 1 EACH FS ONE (07:38)
[2019-09-08] MEDS ORDERED: Furosemide 40 MG/4 ML VIAL SLOW IVP SCH (07:45)
[2019-09-08] MEDS ORDERED: Potassium Chloride 40 MEQ in Sodium Chloride 0.9% 250 ML 250 ML IVPB PRN (07:45)
[2019-09-08] MEDS ORDERED: Potassium Phosphate 15 MMOL in Sodium Chloride 0.9% 250 ML 250 ML IV PRN (07:45)
[2019-09-08] MEDS ORDERED: Potassium Chloride 40 MEQ in Sodium Chloride 0.9% 250 ML 250 ML IVPB SCH (07:45)
[2019-09-08] MEDS ORDERED: Potassium Phosphate 9 MMOL in Sodium Chloride 0.9% 100 ML IVPB PRN (07:45)
[2019-09-08] MEDS ORDERED: Magnesium Oxide 400 MG TAB PO PRN ×2 (07:45)
[2019-09-08] MEDS ORDERED: Potassium Chloride 20 MEQ TAB PO PRN (07:45)
[2019-09-08] MEDS ORDERED: Potassium Chloride 40 MEQ in Premix Bag 1 BAG IVPB PRN (07:45)
[2019-09-08] MEDS ORDERED: PHOS-NAK 1 PKT PACK PO PRN ×2 (07:45)
[2019-09-08] MEDS ORDERED: Magnesium 2 GM/50 ML 2 GM in Premix Bag 1 BAG IVPB PRN (07:45)
[2019-09-08] MEDS ORDERED: Potassium Phosphate 12 MMOL in Sodium Chloride 0.9% 250 ML 250 ML IV PRN (07:45)
--- NOTE | 2019-09-08 08:13 | PRG ---
DATE OF SERVICE: 09/08/2019 This is 35 minutes critical care time. SUBJECTIVE: The patient is now out of therapeutic hypothermia. He is awake. He follows some commands. OBJECTIVE: VITAL SIGNS: Temperature 97.2, pulse 96, blood pressure 154/81, O2 saturation 100%. A 24-hour intake 1817, output 850. HEENT: He has reddened conjunctivae. Pupils are 3 mm and reactive. Oropharynx clear. NECK: No adenopathy or JVD. LUNGS: Clear to auscultation anteriorly. CARDIOVASCULAR: S1 and S2 regular without audible murmur. ABDOMEN: Soft, obese, nontender, and nondistended. EXTREMITIES: No clubbing or cyanosis. He has edema in his feet and ankles. IMAGING STUDIES: His chest x-ray shows pulmonary edema bilaterally, left greater than right. ET tube was in good position. Echocardiogram demonstrated EF of 50% to 55% with concentric left ventricular hypertrophy. No significant valvular disease. Had a trivial pericardial effusion. LABORATORY DATA: Sodium 142, potassium 3.2, chloride 100, CO2 of 32, BUN 33, creatinine 2.1, and glucose 69. White blood cell count 5.8, hematocrit 30.5, platelet count 132. INR is 1.4, PTT 42.2. PH of 7.56, pCO2 of 36, pO2 of 73 on SIMV rate 20, tidal volume 500, PEEP 5, pressure support 10, FiO2 of 45%. ASSESSMENT: 1. Status post cardiac arrest. 2. Acute respiratory failure requiring mechanical ventilation. 3. Question of anoxic brain injury. 4. Bilateral pulmonary infiltrates probably indicative of some diastolic heart failure. 5. Acute on chronic renal insufficiency. PLAN: 1. Try spontaneous breathing trial, but he was not quite ready to proceed with that because of low tidal volumes. 2. Replace potassium. 3. Give one dose of diuretics and stop IV fluid. 4. Try withhold sedation as much as possible. Job ID: [id number]
[2019-09-08] MEDS: Famotidine/PF 20 mg/2ml Vial SLOW IVP SCH (08:52)
[2019-09-08 09:25] LABS: Vancomycin, Trough 28.7 ug/mL
--- NOTE | 2019-09-08 11:51 | PDOC.HOSPP ---
- Subjective Encounter Date: 09/08/19 Encounter Time: 09:00 Subjective: Alert, responsive to verbal stimulus...not following command. intubated. Off hypothermic blanket... - Objective Vital Signs & Weight: Vital Signs (12 hours) Pulse Resp 09/08/19 10:54 96 09/08/19 10:00 12 09/08/19 08:00 12 09/08/19 07:42 12 09/08/19 06:00 20 09/08/19 04:00 20 09/08/19 02:00 20 09/08/19 00:00 20 Weight Admit Weight 279 lb 5.211 oz Weight 279 lb Most Recent Monitor Data Heart Rate from ECG 88 NIBP 135/75 NIBP BP-Mean 95 Respiration from ECG 13 SpO2 100 I&O: 09/07/19 09/08/19 09/09/19 06:59 06:59 05:59 Intake Total 337.6 1817 Output Total 340 850 180 Balance -2.4 967 -180 Result Diagrams: 09/07/19 20:25 09/08/19 04:25 Additional Labs: Accuchecks 09/08/19 09/08/19 09/08/19 10:26 08:40 06:35 POC Glucose 101 89 88 09/08/19 09/08/19 09/08/19 04:26 02:11 00:30 POC Glucose 86 86 76 09/07/19 09/07/19 21:47 15:09 POC Glucose 126 H 82 Hospitalist ROS - Medication Medications: Active Medications Generic Name Dose Route Start Last Admin Trade Name Freq PRN Reason Stop Dose Admin Dextrose/Water 25 gm 09/07/19 01:06 09/07/19 21:10 Dextrose 50% SLOW IVP 25 gm PRN PRN Administration Hypoglycemia Famotidine 20 mg 09/07/19 09:00 09/08/19 08:52 Pepcid SLOW IVP 20 mg DAILY LEEANN Administration Piperacillin Sod/Tazobactam 100 mls @ 200 mls/hr 09/07/19 06:00 09/08/19 06: 27 Sod 3.375 gm/ Sodium Chloride IVPB 100 mls Q6HR LEEANN Administration Fentanyl Citrate 2,000 mcg/ 100 mls @ 0 mls/hr 09/07/19 01:11 09/07/19 14:55 Sodium Chloride IV 10/07/19 01:11 100 mls INF LEEANN Administration Protocol Per Protocol Dextrose/Water 1,000 mls @ 50 mls/hr 09/08/19 00:45 09/08/19 00:51 Dextrose 10% In Water IV 1,000 mls .Q20H LEEANN Administration Sodium Chloride 10 ml 09/07/19 09:00 09/08/19 08:52 Flush - Normal Saline IVF 10 ml Q12HR LEEANN Administration - Exam Neck: no JVD Heart: RRR Respiratory: CTAB Gastrointestinal: soft Extremities: 2+ LE edema Hosp A/P (1) Cardiac arrest Code(s): I46.9 - CARDIAC ARREST, CAUSE UNSPECIFIED Status: Acute Plan: f/u with cardiology. VS stable. (2) Pulmonary edema Code(s): J81.1 - CHRONIC PULMONARY EDEMA Status: Acute Plan: Secondary to above. f/u chest x-ray.. (3) Acute kidney injury superimposed on CKD Code(s): N17.9 - ACUTE KIDNEY FAILURE, UNSPECIFIED; N18.9 - CHRONIC KIDNEY DISEASE, UNSPECIFIED Status: Acute Plan: Renal function unchanged.. (4) Atrial fibrillation Code(s): I48.91 - UNSPECIFIED ATRIAL FIBRILLATION Status: Acute (5) Diabetes Code(s): E11.9 - TYPE 2 DIABETES MELLITUS WITHOUT COMPLICATIONS Status: Acute Plan: BS has been on the low side.. Monitor Bs + sliding scale. (6) Positive blood culture Code(s): R78.81 - BACTEREMIA Status: Acute Plan: On broad spectrum antibiotics.. Consult ID. - Plan Continue current therapy. f/u with consultants..
[2019-09-08] MEDS: fentaNYL Citrate/PF 2,000 MCG in Sodium Chloride 0.9% 60 ML IV SCH (17:36)
[2019-09-08 17:47] LABS: Potassium 4.1 mmol/L (3.5-5.1)
[2019-09-08] MEDS: Warfarin Sodium 5 MG TAB PO SCH (17:57)
[2019-09-08] MEDS: Vancomycin HCl 1 GM in Premix Bag 1 BAG IVPB SCH (19:16)
[2019-09-08 21:58] LABS: Vancomycin, Random 23.7 ug/mL (See Comment)
[2019-09-08] MEDS ORDERED: Vancomycin HCl 500 MG in Sodium Chloride 0.9% 100 ML IVPB SCH (22:00)
[2019-09-09] MEDS: Piperacillin/Tazobactam 3.375 GM in Sodium Chloride 0.9% 100 ML IVPB SCH ×4 (03:55→20:04)
[2019-09-09 04:43] LABS: INR-International Normal Ratio 1.9; PTT 48.9 SEC (22.9-36.1); Prothrombin Time 21.5 SEC (12.0-14.7)
[2019-09-09 05:02] LABS: Anion Gap 15 mmol/L (10-20); BUN (Urea Nitrogen) 32 mg/dL (8.4-25.7); Calc. Creatinine Clearance 50 mL/min (70-130); Calcium 8.5 mg/dL (7.8-10.44); Carbon Dioxide 33 mmol/L (22-29); Chloride 101 mmol/L (98-107); Estimated GFR-MDRD 28; Glucose 72 mg/dL (70-105); Potassium 3.9 mmol/L (3.5-5.1); Sodium 145 mmol/L (136-145)
[2019-09-09 06:52] LABS: Actual Bicarbonate (HCO3a) 33.5 mEq/L (22-28); Base Excess (BEa) 6.8 mEq/L (-2.0 to +3.0); CO2 Tension 57.2 mmHg (35.0-45.0); Calcium, Ionized 1.13 mmol/L (1.12-1.30); Carboxyhemoglobin (COHb) 1.1 gm% (0.0-3.0); Hemoglobin (Hb) 12.4 g/dL (14.0-18.0); Potassium - ABG Lab 3.82 mmol/L (3.70-5.30); pH, Arterial 7.39 (7.35-7.45)
[2019-09-09 07:00] LABS: Puncture Site RRAD
--- NOTE | 2019-09-09 07:49 | RAD ---
XR Chest 1 View Portable History: Pneumonia Comparison: Radiograph prior day Findings: Intra-articular tube tip sits at the level of the clavicles. Enteric tube tip not well seen . Right IJ central venous catheter is similar. Pleural effusions have increased. Heart size is enlarged. Parenchymal opacities are similar. Impression: Size increase large bilateral layering pleural effusions.
[2019-09-09] MEDS: Famotidine/PF 20 mg/2ml Vial SLOW IVP SCH (08:00)
[2019-09-09] MEDS ORDERED: DC Sedation Protocol FS ONE (08:32)
[2019-09-09] MEDS ORDERED: Furosemide 40 MG/4 ML VIAL SLOW IVP SCH ×2 (08:45→12:00)
--- NOTE | 2019-09-09 09:07 | PRG ---
DATE OF SERVICE: 09/09/2019 35 minutes of critical care time. SUBJECTIVE: Mr. Ortega is awake, alert, follows commands. His is at the bedside. OBJECTIVE: VITAL SIGNS: His temperature is 98.3, pulse is 99, blood pressure is 138/72, and O2 saturation is 100%. Intake for 24 hours is 290, output is 1660. HEENT: Unremarkable. NECK: No adenopathy or JVD. CHEST: Fairly clear anteriorly. CARDIAC: S1 and S2, slightly tachycardic. ABDOMEN: Soft. EXTREMITIES: No edema. LABORATORY DATA: Sodium 145, potassium 3.9, chloride 101, CO2 of 33, BUN 32, creatinine 2.8, and glucose 72. INR is 1.9. PH of 7.39, pCO2 of 57, pO2 of 72 on SIMV rate 12, tidal of 500, PEEP 5, pressure support 10, and FiO2 of 40%. White blood cell count 5.8, hematocrit 30.5, and platelet count 132. His x-ray shows bilateral pulmonary edema, lines and tubes are in adequate position. ASSESSMENT: 1. Acute respiratory failure, requiring mechanical ventilation. 2. Status post cardiopulmonary arrest. 3. Diastolic heart failure. 4. Acute on chronic renal insufficiency. PLAN: 1. He passed the spontaneous breathing trial, so we will extubate. I will go ahead and give him another dose of Lasix. I will stop his vancomycin since the only thing is growing out of cultures is E coli and micrococcus, both of which should be sensitive to the cefepime. 2. Continue the Coumadin. Job ID: [id number]
[2019-09-09] MEDS ORDERED: Vancomycin HCl 1 GM in Premix Bag 1 BAG IVPB SCH (10:00)
--- NOTE | 2019-09-09 10:42 | PDOC.HOSPP ---
- Subjective Encounter Date: 09/09/19 Encounter Time: 10:20 Subjective: s/p extubation, Alert, communicating.. Expresses no complaint. - Objective Vital Signs & Weight: Vital Signs (12 hours) Temp Pulse Resp BP Pulse Ox 09/09/19 08:00 98.3 F 21 H 96 09/09/19 07:01 106 H 09/09/19 06:00 20 09/09/19 04:00 98.4 F 12 09/09/19 02:03 101 H 125/75 09/09/19 02:00 12 09/09/19 00:00 12 Weight Admit Weight 279 lb 5.211 oz Weight 268 lb Most Recent Monitor Data Heart Rate from ECG 106 NIBP 131/77 NIBP BP-Mean 95 Respiration from ECG 19 SpO2 96 I&O: 09/08/19 09/09/19 09/10/19 07:59 06:59 06:59 Intake Total Output Total 340 Balance -340 Result Diagrams: 09/07/19 20:25 09/09/19 04:25 Additional Labs: Accuchecks 09/09/19 09/09/19 09/09/19 06:59 04:27 00:03 POC Glucose 78 75 99 09/08/19 09/08/19 09/08/19 19:44 16:10 14:13 POC Glucose 111 H 129 H 118 H 09/08/19 12:10 POC Glucose 106 Hospitalist ROS - Medication Medications: Active Medications Generic Name Dose Route Start Last Admin Trade Name Freq PRN Reason Stop Dose Admin Dextrose/Water 25 gm 09/07/19 01:06 09/07/19 21:10 Dextrose 50% SLOW IVP 25 gm PRN PRN Administration Hypoglycemia Famotidine 20 mg 09/07/19 09:00 09/09/19 08:00 Pepcid SLOW IVP 20 mg DAILY LEEANN Administration Dextrose/Water 1,000 mls @ 50 mls/hr 09/08/19 00:45 09/08/19 21:39 Dextrose 10% In Water IV Not Given .Q20H LEEANN Piperacillin Sod/Tazobactam 100 mls @ 200 mls/hr 09/08/19 20:00 09/09/19 07: 53 Sod 3.375 gm/ Sodium Chloride IVPB 100 mls 0200,0800,1400,2000 LEEANN Administration Sodium Chloride 10 ml 09/07/19 09:00 09/09/19 08:01 Flush - Normal Saline IVF 10 ml Q12HR LEEANN Administration Warfarin Sodium 5 mg 09/08/19 17:00 09/08/19 17:57 Coumadin PO 5 mg 1700 LEEANN Administration - Exam General Appearance: awake alert Neck: no JVD Heart: RRR Respiratory: rhonchi Gastrointestinal: soft Neurological: no focal deficits Hosp A/P (1) Cardiac arrest Code(s): I46.9 - CARDIAC ARREST, CAUSE UNSPECIFIED Status: Acute (2) Pulmonary edema Code(s): J81.1 - CHRONIC PULMONARY EDEMA Status: Acute Plan: Secondary to above.. f/u chest x-ray (3) Acute kidney injury superimposed on CKD Code(s): N17.9 - ACUTE KIDNEY FAILURE, UNSPECIFIED; N18.9 - CHRONIC KIDNEY DISEASE, UNSPECIFIED Status: Acute Plan: Serum creat higher, most likely ischemic ATN due to cardiac arrest. (4) Atrial fibrillation Code(s): I48.91 - UNSPECIFIED ATRIAL FIBRILLATION Status: Acute Plan: Has been in and out of atrial fib. f/u with cardiology.. (5) Diabetes Code(s): E11.9 - TYPE 2 DIABETES MELLITUS WITHOUT COMPLICATIONS Status: Acute Plan: BS satisfactory.. (6) Positive blood culture Code(s): R78.81 - BACTEREMIA Status: Acute Plan: Continue antibiotics.. ID consulted..f/u c&s - Plan Overall condition has improved.. Continue current therapy. f/u with consultants..
[2019-09-09] MEDS ORDERED: Furosemide 40 MG/4 ML VIAL ONE (11:56)
[2019-09-09 12:57] LABS: Bilirubin Negative (Negative); Blood, Urine 2+ (Negative); Clarity Clear (Clear); Glucose, Urine (Dipstick) Normal (Negative); Leukocyte 250 Leu/uL (Negative); Nitrite Negative (Negative); Protein, Urine (Dipstick) 20 mg/dL (Neg-Trace); Squamous Epithelial None Seen HPF (0-3); Urobilinogen Normal mg/dL (Less than 2)
--- NOTE | 2019-09-09 12:57 | CON ---
DATE OF CONSULTATION: 09/09/2019 SERVICE: Nephrology. CONSULTING PHYSICIAN: Juan Tolbert MD. REASON FOR CONSULTATION: Acute renal failure and volume overload. HISTORY OF PRESENT ILLNESS: A 58-year-old male with known history of CHF and diabetes mellitus, who was admitted after a cardiac arrest at home on September 06, 2019. The patient reportedly stopped taking his medications and later developed acute onset of respiratory distress. When EMS arrived, the patient was said to be pulseless and with no respiration, necessitating CPR with return of spontaneous circulation. The patient later had another episode of arrest in the ER with prompt return of spontaneous circulation and was subsequently intubated. The patient was extubated earlier on this morning. He was, however, found to have worsening renal function as well as worsening edema, necessitating Nephrology consult. reported that the patient has bilateral leg edema and chronic leg swelling since 4 years. The patient is conscious, but has slow mentation and was unable to provide any significant history in this period. He, however, denied chest pain, but reported cough and some shortness of breath. There is no history of fever, nausea, or vomiting. PAST MEDICAL HISTORY: 1. Congestive heart failure. 2. Hypertension. 3. History of DVT. 4. Chronic leg edema. 5. Diabetes mellitus. 6. Hyperlipidemia. 7. Obesity. PAST SURGICAL HISTORY: IVC filter placement. FAMILY HISTORY: Significant for hypertension and diabetes. SOCIAL HISTORY: The patient lives with spouse. He is a former smoker. Currently drinks occasionally. ALLERGIES: NO KNOWN DRUG ALLERGIES REPORTED. HOME MEDICATIONS: 1. Amlodipine 10 mg p.o. daily. 2. Lipitor 40 mg p.o. daily. 3. Coreg 25 mg p.o. b.i.d. 4. Gabapentin 400 mg p.o. daily at bedtime. 5. Levemir insulin 20 units subcutaneously at bedtime. 6. Isosorbide mononitrate 5 mg p.o. b.i.d. 7. Lisinopril 20 mg p.o. daily at bedtime. 8. Mirtazapine 50 mg p.o. daily at bedtime. 9. Torsemide 20 mg p.o. b.i.d. 10. Warfarin 7.5 mg p.o. daily at bedtime. CURRENT HOSPITAL MEDICATIONS: 1. 10% dextrose in water at 50 mL/h. 2. Zosyn 3.375 g q.6 hours. 3. Pepcid 20 mg IV daily. 4. Warfarin 5 mg p.o. daily. 5. Acetaminophen IV q.6 hours p.r.n. 6. Sliding scale insulin. REVIEW OF SYSTEMS: A 12-point review of system performed was negative other than pertinent positives and negatives included in the history of present illness. PHYSICAL EXAMINATION: VITAL SIGNS: Temperature 98.3, pulse 106, respiratory rate 19, SpO2 of 96% on 3 L nasal cannula, and blood pressure is 131/77. GENERAL: Obese male, in mild respiratory distress. Afebrile. Anicteric. Acyanotic. HEENT: Normocephalic, atraumatic. Oral mucosa is moist. NECK: Short thick neck noted. No obvious JVD appreciated. CARDIOVASCULAR: Regular rhythm and rate, but tachycardic. RESPIRATORY: Fair air entry bilaterally with scattered crackles. Work of breathing is mildly increased. GASTROINTESTINAL: Abdomen is obese, firm, and nontender. UROGENITAL: Suarez catheter is in place, draining some urine. EXTREMITIES: Marked swelling of both lower extremities as well as mild edema of upper extremities appreciated. No erythema noted. 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 Oriented to person and place. Some memory lapses and slow mentation noted. DIAGNOSTIC DATA: CBC showed WBC count of 5.8, hemoglobin of 9.9, MCV of 92.1, and platelet of 132. BMP showed sodium 145, potassium 3.9, chloride 101, CO2 of 33, BUN 32, creatinine 2.83, glucose 72, and calcium 8.5. Of note, on presentation, BUN was 30 and creatinine was 2.14. Urinalysis on presentation showed light yellow clear urine with pH of 5, specific gravity of 1.016, urine protein of 10 mg/dL. Negative ketone, nitrites, bilirubin. Blood is positive. Microscopy showed 0 to 3 rbc and 4 to 6 wbc. Cardiac markers on presentation showed initial troponin of 0.023. BNP of 26.2. Troponin was later elevated to a peak of 15.3. CK also was normal on presentation at 80 that has gone up to 976 on . Most current chest x-ray performed earlier today showed pleural effusions, which have increased as well as cardiomegaly and parenchymal opacities. Echocardiogram performed on September 07 showed preserved systolic function with EF of 50% to 55%; however, severe concentric left ventricular hypertrophy, mild mitral regurgitation, and mild tricuspid regurgitation were noted. ASSESSMENT: 1. Acute kidney injury superimposed on baseline chronic kidney disease. 2. Chronic kidney disease of unknown baseline creatinine. 3. Marked anasarca with pulmonary congestion and pleural effusion. 4. Obesity with possible obesity hypoventilation and obstructive sleep apnea. 5. History of bilateral lower extremity deep vein thrombosis. 6. Status post cardiac arrest. 7. Acute on chronic congestive heart failure of diastolic type. 8. Mild mitral regurgitation. 9. Type 2 diabetes mellitus, on treatment. PLAN: 1. We will escalate diuretic therapy to manage volume status as the patient is clearly fluid overloaded with pulmonary congestion. He was extubated earlier today, understands the risk of re-intubation or less fluid status improve soon. We will increase Lasix to 80 mg b.i.d. 2. We will also get renal ultrasound as well as repeat urinalysis and urine electrolytes. 3. Agree with anticoagulation as the patient is high risk for PE. 4. Ultrasound of lower extremities has been ordered. 5. We will get medical record from [facility] to know the patient's baseline kidney function. 6. We will also get repeat CK and albumin level. The patient had elevated CK on , suggestive of rhabdomyolysis. 7. Further treatment to follow depending on hospital course and review of other diagnostic test. Job ID: [id number]
--- NOTE | 2019-09-09 13:03 | ULT ---
EXAM: Bilateral lower extremity venous duplex: Deep veins evaluated with color Doppler, spectral analysis, and compression. INDICATIONS: Bilateral lower extremity pain and edema. FINDINGS: Deep veins interrogated include common femoral vein, femoral vein, popliteal vein, and post erior tibial vein. There is intraluminal increased echogenicity, with lack of normal compressibility and flow involving deep vein system extending from level of common femoral vein throu gh the popliteal vein, of the left lower extremity, compatible with venous thrombosis. IMPRESSION: Extensive DVT left lower extremity. Patient's nurse, Evelin, was notified by the dependency program director at the time of the exam.
[2019-09-09 13:05] LABS: Creatinine, Urine 49.43 mg/dL (63-166)
--- NOTE | 2019-09-09 13:05 | ULT ---
US Renal Bilateral STANDARD History: Acute kidney injury Comparison: None. Findings: Right kidney measures 11.3 x 5.9 x 5.3 cm and the left kidney measures 12 x 7.6 x 6.9 cm. N o renal mass, hydronephrosis, or abnormal calcifications. Urinary bladder is decompressed with a Suarez catheter. Impression: No evidence for obstructive uropathy.
[2019-09-09 13:07] LABS: Albumin 3.2 g/dL (3.5-5.0)
[2019-09-09 13:09] LABS: Bacteria/HPF None Seen HPF (None Seen)
[2019-09-09] MEDS: Warfarin Sodium 5 MG TAB PO SCH (16:57)
[2019-09-09] MEDS: Dextrose 10% in Water 1,000 ML IV SCH (19:21)
[2019-09-09] MEDS: Furosemide 100 MG/10 ML VIAL SLOW IVP SCH (20:04)
[2019-09-10] MEDS ORDERED: Lorazepam 2 MG/ML VIAL SLOW IVP PRN (02:11)
[2019-09-10] MEDS ORDERED: Lorazepam 2 MG/ML VIAL SLOW IVP SCH (02:15)
[2019-09-10] MEDS: Piperacillin/Tazobactam 3.375 GM in Sodium Chloride 0.9% 100 ML IVPB SCH ×4 (02:21→21:02)
[2019-09-10 04:55] LABS: INR-International Normal Ratio 2.7; Prothrombin Time 28.4 SEC (12.0-14.7)
[2019-09-10 04:56] LABS: PTT 58.3 SEC (22.9-36.1)
[2019-09-10 05:09] LABS: Albumin 3.7 g/dL (3.5-5.0); Anion Gap 17 mmol/L (10-20); BUN (Urea Nitrogen) 31 mg/dL (8.4-25.7); Calc. Creatinine Clearance 42 mL/min (70-130); Carbon Dioxide 31 mmol/L (22-29); Chloride 100 mmol/L (98-107); Estimated GFR-MDRD 24; Glucose 90 mg/dL (70-105); Phosphorus 3.5 mg/dL (2.3-4.7); Potassium 3.8 mmol/L (3.5-5.1); Sodium 144 mmol/L (136-145)
[2019-09-10] MEDS: Furosemide 100 MG/10 ML VIAL SLOW IVP SCH (08:33)
[2019-09-10] MEDS: Famotidine/PF 20 mg/2ml Vial SLOW IVP SCH (08:33)
--- NOTE | 2019-09-10 08:40 | RAD ---
PORTABLE CHEST 1 VIEW: DATE: 09/10/2019. TIME: 4:18 a.m. HISTORY: Pneumonia. FINDINGS: Comparison is made with the exam of the previous day. Line and tube placements have been removed in the interim. The heart is enlarged. There is pulmonar y vascular congestion with airspace opacities bilaterally, right greater than left. No pneumothorace s or large effusions are seen. POS: OFF
--- NOTE | 2019-09-10 08:44 | PRG ---
DATE OF SERVICE: 09/10/2019 SUBJECTIVE: He was successfully extubated yesterday. He is having trouble with secretions. He is also encephalopathic. OBJECTIVE: VITAL SIGNS: Temperature 98.4, pulse 92, blood pressure 132/83, O2 saturations 98%. Intake for 24 hours 1232, output 1516. HEENT: Unremarkable. NECK: No adenopathy or JVD. CHEST: Coarse rhonchi, mainly upper airway. CARDIAC: S1 and S2 regular. ABDOMEN: Soft. EXTREMITIES: Edematous. IMAGING STUDIES: His chest x-ray continues to look wet. LABORATORY DATA: White blood cell count 5.8, hematocrit 30.5, platelet count 132. INR is 2.7. Sodium 144, potassium 3.8, chloride 100, CO2 of 31, BUN 31, creatinine 3.2, glucose 90. ASSESSMENT: 1. Status post cardiopulmonary arrest. 2. Status post acute respiratory failure requiring mechanical ventilation. 3. Diastolic heart failure. 4. Acute on chronic renal insufficiency. 5. Upper airway secretions with poor cough reflex. 6. Encephalopathy. PLAN: 1. NT suctioning to clear out his upper airway. 2. He is continuing diuresis for his heart failure as his x-ray continues to look well. 3. Continuing antibiotics for aspiration and urinary tract infection. 4. I would leave him in the ICU for the time being because of his tenuous airway. 5. I have reduced his warfarin dose. Job ID: [id number]
--- NOTE | 2019-09-10 09:57 | PDOC.HOSPP ---
- Subjective Encounter Date: 09/10/19 Encounter Time: 09:55 Subjective: confused, no appropriate response - Objective Vital Signs & Weight: Vital Signs (12 hours) Temp 09/10/19 08:00 98.1 F 09/10/19 04:00 98.4 F 09/10/19 00:00 98.5 F Weight Admit Weight 279 lb 5.211 oz Weight 250 lb 10.649 oz Most Recent Monitor Data Heart Rate from ECG 100 NIBP 150/77 NIBP BP-Mean 101 Respiration from ECG 18 SpO2 96 I&O: 09/09/19 09/10/19 09/11/19 06:59 06:59 06:59 Intake Total 1232 0 Output Total 1516 100 Balance -284 -100 Result Diagrams: 09/07/19 20:25 09/10/19 04:40 Additional Labs: Accuchecks 09/10/19 09/09/19 09/09/19 08:43 21:02 16:30 POC Glucose 88 110 99 09/09/19 12:25 POC Glucose 91 Hospitalist ROS - Medication Medications: Active Medications Generic Name Dose Route Start Last Admin Trade Name Freq PRN Reason Stop Dose Admin Dextrose/Water 25 gm 09/07/19 01:06 09/07/19 21:10 Dextrose 50% SLOW IVP 25 gm PRN PRN Administration Hypoglycemia Famotidine 20 mg 09/07/19 09:00 09/10/19 08:33 Pepcid SLOW IVP 20 mg DAILY LEEANN Administration Furosemide 80 mg 09/09/19 21:00 09/10/19 08:33 Lasix SLOW IVP 80 mg BID LEEANN Administration Piperacillin Sod/Tazobactam 100 mls @ 200 mls/hr 09/08/19 20:00 09/10/19 08: 33 Sod 3.375 gm/ Sodium Chloride IVPB 100 mls 0200,0800,1400,2000 LEEANN Administration Sodium Chloride 10 ml 09/07/19 09:00 09/10/19 08:34 Flush - Normal Saline IVF 10 ml Q12HR LEEANN Administration - Exam Neck: no JVD Heart: RRR Respiratory - other findings: bilat rales, rhonchi Gastrointestinal: soft, normal bowel sounds Extremities: 1+ LE edema Hosp A/P (1) Encephalopathy acute Code(s): G93.40 - ENCEPHALOPATHY, UNSPECIFIED Status: Acute (2) Acute on chronic diastolic (congestive) heart failure Code(s): I50.33 - ACUTE ON CHRONIC DIASTOLIC (CONGESTIVE) HEART FAILURE Status : Acute (3) UTI (urinary tract infection) Status: Acute Qualifiers: Urinary tract infection type: site unspecified Hematuria presence: without hematuria Qualified Code(s): N39.0 - Urinary tract infection, site not specified (4) Acute kidney injury superimposed on CKD Code(s): N17.9 - ACUTE KIDNEY FAILURE, UNSPECIFIED; N18.9 - CHRONIC KIDNEY DISEASE, UNSPECIFIED Status: Acute (5) Cardiac arrest Code(s): I46.9 - CARDIAC ARREST, CAUSE UNSPECIFIED Status: Acute (6) Diabetes Code(s): E11.9 - TYPE 2 DIABETES MELLITUS WITHOUT COMPLICATIONS Status: Acute Qualifiers: Diabetes mellitus type: type 2 Diabetes mellitus extermination supervisor insulin use: with extermination supervisor use Diabetes mellitus complication status: with kidney complications Diabetes mellitus complication detail: with chronic kidney disease Chronic kidney disease stage: stage 3 (moderate) Qualified Code(s): E11.22 - Type 2 diabetes mellitus with diabetic chronic kidney disease; N18.3 - Chronic kidney disease, stage 3 (moderate); Z79.4 - terminal supervisor (current) use of insulin (7) DVT (deep venous thrombosis) Code(s): I82.409 - ACUTE EMBOLISM AND THOMBOS UNSP DEEP VN UNSP LOWER EXTREMITY Status: Acute - Plan discuss with mechanic general operational test cont warfarin for DVT cont iv lasix cont iv antibx
[2019-09-10] MEDS: Furosemide 40 MG/4 ML VIAL SLOW IVP SCH ×2 (14:38→21:03)
[2019-09-10] MEDS ORDERED: Metolazone 5 MG TAB PO SCH (15:45)
[2019-09-10] MEDS ORDERED: Carvedilol 6.25 MG TAB PO SCH (16:15)
[2019-09-10] MEDS: Warfarin Sodium 5 MG TAB PO SCH (16:20)
--- NOTE | 2019-09-10 17:03 | PRG ---
DATE OF SERVICE: 09/10/2019 SERVICE: Nephrology. SUBJECTIVE: A 58-year-old male, status post cardiac arrest, being followed up for acute on chronic renal failure and volume overload. The patient was extubated yesterday and has been doing well since then. He seems confused, but otherwise cooperative and comfortable. No nausea, vomiting, or diarrhea. OBJECTIVE: VITAL SIGNS: Temperature 98.1, pulse 105, respiratory rate 22, SpO2 of 96% on 3 L nasal cannula, and blood pressure is 163/97. GENERAL: Obese male, in no obvious distress. Afebrile. Anicteric. Acyanotic. HEENT: Normocephalic and atraumatic. Oral mucosa is moist. NECK: Short, thick neck. CARDIOVASCULAR: Regular rhythm and rate with normal heart sounds 1 and 2. Tachycardic. RESPIRATORY: Fair air entry bilateral, diminished at both bases with scattered transmitted sounds and few crackles. Work of breathing is mildly increased. GI: Abdomen is obese, soft, nontender, and nondistended with normal bowel sounds. EXTREMITIES: [id number] bilateral lower extremity edema, especially left side. 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 Oriented to person at least. The patient is confused with memory lapses. Moves all extremities to command and spontaneously. Cranial nerves 2 through 12 are grossly intact. DIAGNOSTIC DATA: Renal function panel showed sodium 144, potassium 3.8, chloride 100, CO2 of 31, BUN 31, creatinine 3.19, glucose 90, calcium 9.0, phosphorus 3.5, and albumin 3.7. CPK is 323 down from 493 yesterday and peak of 976 on September 07, 2019. Urinalysis yesterday showed light yellow urine with pH of 5.5, specific gravity of 1.012, urine protein of 20 mg/dL, negative ketone, nitrites, bilirubin. Leukocyte esterase was, however, positive. Microscopy showed 11 to 20 rbc and 7 to 10 wbc. Random total protein urine is 28 mg/dL. Random creatinine was 49.43 and random sodium is 99 with urea nitrogen of 213. Chest x-ray today showed enlarged heart with persistent of pulmonary vascular congestion with air space opacities bilateral, right greater than left. Renal ultrasound of September 09, 2019, showed normal size kidneys with no masses, hydronephrosis, or calcifications. Right measures 11.3 x 5.9 x 5.3 while left measures 12 x 7.6 x 6.9. Venogram showed extensive DVT of left lower extremity. ASSESSMENT: 1. Acute on chronic renal failure. Most likely due to hemodynamic factors related to cardiac arrest with possible contribution from vancomycin-induced nephrotoxicity as well as rhabdomyolysis. Cardiorenal syndrome is equally contributing some. The patient also is markedly volume overloaded and is getting diuretics, which is also pushing the creatinine upwards. 2. Chronic kidney disease. 3. Marked anasarca with pulmonary congestion. 4. Obesity with possible obesity hypoventilation and obstructive sleep apnea. 5. Rhabdomyolysis: CPK is trending downwards. 6. Hypertension: Blood pressure is creeping up. PLAN: 1. Continue aggressive diuretic therapy. We will, however, reduce Lasix dose due to increasing azotemia. We will, however, add metolazone to improve diuresis. The patient is still grossly fluid overloaded with pulmonary congestion. 2. We will start Coreg for BP control. 3. We will monitor electrolytes, especially potassium and replete as needed. 4. Other treatment as per Pulmonary and Critical Care, Cardiology and primary attending. Job ID: [id number]
[2019-09-10] MEDS: Carvedilol 6.25 MG TAB PO SCH (21:03)
[2019-09-11] MEDS: Piperacillin/Tazobactam 3.375 GM in Sodium Chloride 0.9% 100 ML IVPB SCH ×4 (02:35→20:41)
[2019-09-11] MEDS ORDERED: Digoxin 0.5 MG/2 ML AMP SLOW IVP SCH (03:00)
[2019-09-11] MEDS ORDERED: Diltiazem HCl 125 MG, Admixture Fee 1 EACH in Sodium Chloride 0.9% 100 ML IVPB SCH (03:00)
[2019-09-11 05:25] LABS: Anion Gap 15 mmol/L (10-20); BUN (Urea Nitrogen) 30 mg/dL (8.4-25.7); Calc. Creatinine Clearance 38 mL/min (70-130); Calcium 9.1 mg/dL (7.8-10.44); Carbon Dioxide 34 mmol/L (22-29); Chloride 101 mmol/L (98-107); Estimated GFR-MDRD 24; Glucose 79 mg/dL (70-105); Potassium 3.6 mmol/L (3.5-5.1); Sodium 146 mmol/L (136-145)
[2019-09-11] MEDS: Furosemide 40 MG/4 ML VIAL SLOW IVP SCH ×3 (05:56→22:19)
--- NOTE | 2019-09-11 08:48 | PDOC.HOSPP ---
- Subjective Encounter Date: 09/11/19 Encounter Time: 08:44 Subjective: confused - Objective Vital Signs & Weight: Vital Signs (12 hours) Temp Pulse Resp BP Pulse Ox 09/11/19 07:54 99 09/11/19 07:52 89 20 99 09/11/19 04:00 98.5 F 09/11/19 03:06 122 H 09/11/19 02:35 122 H 26 H 97 09/11/19 00:00 98.3 F 09/10/19 22:19 87 12 100 09/10/19 21:03 135/88 Weight Admit Weight 279 lb 5.211 oz Weight 247 lb 2.211 oz Most Recent Monitor Data Heart Rate from ECG 99 NIBP 141/81 NIBP BP-Mean 101 Respiration from ECG 19 SpO2 98 I&O: 09/10/19 09/11/19 09/12/19 06:59 06:59 06:59 Intake Total 1232 586 Output Total 1516 2300 Balance -284 -1018 Result Diagrams: 09/07/19 20:25 09/11/19 04:46 Additional Labs: Accuchecks 09/11/19 09/10/19 09/10/19 07:55 21:19 12:26 POC Glucose 90 101 126 H 09/10/19 08:43 POC Glucose 88 Radiology Reviewed by me: Yes (CXR- diffuse infiltrate) Hospitalist ROS - Medication Medications: Active Medications Generic Name Dose Route Start Last Admin Trade Name Freq PRN Reason Stop Dose Admin Albuterol/Ipratropium 3 ml 09/10/19 10:30 09/11/19 07:52 Duoneb EZPAP 3 ml [id number] LEEANN Administration Carvedilol 12.5 mg 09/10/19 21:00 09/10/19 21:03 Coreg PO 12.5 mg BID LEEANN Administration Dextrose/Water 25 gm 09/07/19 01:06 09/07/19 21:10 Dextrose 50% SLOW IVP 25 gm PRN PRN Administration Hypoglycemia Famotidine 20 mg 09/07/19 09:00 09/10/19 08:33 Pepcid SLOW IVP 20 mg DAILY LEEANN Administration Furosemide 40 mg 09/10/19 14:00 09/11/19 05:56 Lasix SLOW IVP 40 mg Q8HR LEEANN Administration Piperacillin Sod/Tazobactam 100 mls @ 200 mls/hr 09/08/19 20:00 09/11/19 02: 35 Sod 3.375 gm/ Sodium Chloride IVPB 100 mls 0200,0800,1400,2000 LEEANN Administration Diltiazem HCl 125 mg/ 125 mls @ 0 mls/hr 09/11/19 03:00 09/11/19 03:06 Miscellaneous Medication 1 IVPB 125 mls each/ Sodium Chloride INF LEEANN Administration Protocol As Directed Sodium Chloride 10 ml 09/07/19 09:00 09/11/19 02:35 Flush - Normal Saline IVF 10 ml Q12HR LEEANN Administration Warfarin Sodium 2 mg 09/10/19 17:00 09/10/19 16:20 Coumadin PO 2 mg 1700 LEEANN Administration - Exam General Appearance: NAD Heart: RRR, no murmur Respiratory - other findings: coarse BS with rhonchi Gastrointestinal: soft, non-tender, normal bowel sounds Extremities: no edema Hosp A/P (1) Encephalopathy acute Code(s): G93.40 - ENCEPHALOPATHY, UNSPECIFIED Status: Acute (2) Acute on chronic diastolic (congestive) heart failure Code(s): I50.33 - ACUTE ON CHRONIC DIASTOLIC (CONGESTIVE) HEART FAILURE Status : Acute (3) UTI (urinary tract infection) Status: Acute Qualifiers: Urinary tract infection type: site unspecified Hematuria presence: without hematuria Qualified Code(s): N39.0 - Urinary tract infection, site not specified (4) Acute kidney injury superimposed on CKD Code(s): N17.9 - ACUTE KIDNEY FAILURE, UNSPECIFIED; N18.9 - CHRONIC KIDNEY DISEASE, UNSPECIFIED Status: Acute (5) Cardiac arrest Code(s): I46.9 - CARDIAC ARREST, CAUSE UNSPECIFIED Status: Acute (6) Diabetes Code(s): E11.9 - TYPE 2 DIABETES MELLITUS WITHOUT COMPLICATIONS Status: Acute Qualifiers: Diabetes mellitus type: type 2 Diabetes mellitus usp insulin use: with intermediate frame tender use Diabetes mellitus complication status: with kidney complications Diabetes mellitus complication detail: with chronic kidney disease Chronic kidney disease stage: stage 3 (moderate) Qualified Code(s): E11.22 - Type 2 diabetes mellitus with diabetic chronic kidney disease; N18.3 - Chronic kidney disease, stage 3 (moderate); 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
[2019-09-11] MEDS: Famotidine/PF 20 mg/2ml Vial SLOW IVP SCH (08:59)
[2019-09-11] MEDS: Carvedilol 6.25 MG TAB PO SCH (09:05)
--- NOTE | 2019-09-11 09:23 | RAD ---
PORTABLE CHEST: HISTORY: Respiratory distress. COMPARISON: 09/10/2019 FINDINGS: Heart size is enlarged. Pulmonary vessels are engorged with increased interstitial alveolar lung peña ges, in a more perihilar distribution. Changes suggest pulmonary edema, overall fairly stable in appe arance. IMPRESSION: Fairly stable overall appearance of the chest. POS: [facility]
--- NOTE | 2019-09-11 09:40 | PRG ---
DATE OF SERVICE: 09/11/2019 SUBJECTIVE: Quentin Ortega was extubated yesterday. He is complaining of vague right-sided chest pain, but no fever or chills. X-ray still shows severe fluid overload, cardiomegaly. He is status post cardiopulmonary arrest. He is less encephalopathic this morning. OBJECTIVE: VITAL SIGNS: Otherwise, blood pressure 135/88, pulse 89, saturations 94% on 4 L, respiratory rate 18. I's and O's; 1232 in and 1516 out. CHEST: Bilateral rhonchi and crackles. CARDIAC: Normal S1 and S2. ABDOMEN: No masses. Creatinine 3.2. IMPRESSION: Status post cardiac arrest, supraventricular tachycardia, chest pain secondary to CPR, encephalopathy, and renal failure. PLAN: Continue observation in the ICU. Continue neb treatment, supportive care, Lee PT. We will follow. Job ID: [id number]
[2019-09-11] MEDS ORDERED: Metolazone 5 MG TAB PO SCH (10:00)
[2019-09-11] MEDS ORDERED: Carvedilol 6.25 MG TAB PO SCH (11:45)
--- NOTE | 2019-09-11 12:17 | PRG ---
DATE OF SERVICE: 09/11/2019 SERVICE: Nephrology. SUBJECTIVE: A 58-year-old male admitted after a cardiac arrest. Nephrology is following the patient for NATHANIEL and worsening anasarca. The patient is still confused. He is also having urinary urge incontinence. Diuresis yesterday was good with negative balance of 1714. He reports improvement in breathing. Denied nausea or vomiting. OBJECTIVE: VITAL SIGNS: Temperature 98.7, pulse 91, respiratory rate 15, SpO2 of 99% on 4 L nasal cannula, and blood pressure is 144/78. GENERAL: Obese male, in mild respiratory distress. Afebrile. Anicteric. HEENT: Normocephalic, atraumatic. Oral mucosa is moist. CARDIOVASCULAR: Regular rhythm and rate with normal heart sounds. RESPIRATORY: Fair air entry bilaterally with scattered crackles bilaterally. No rhonchi were appreciated, however. GI: Obese, soft, nontender, and nondistended with normal bowel sounds. EXTREMITIES: Bfhzsmpy-[id number] bilateral leg edema noted. MEDICAL STAFF ASSISTANT: Conscious and alert. Oriented to person. The patient is still confused, he thinks he is in [place]. Moves all extremities, but weakly. DIAGNOSTIC DATA: BMP showed sodium 146, potassium 3.6, chloride 101, CO2 of 34, BUN 30, creatinine 3.24, glucose 79, and calcium 9.1. Magnesium is 1.7. Chest x-ray today showed enlarged heart as well as engorged pulmonary vessels with increased interstitial alveolar lung changes. ASSESSMENT: 1. Acute on chronic renal failure: Most likely due to hemodynamic factors related to cardiac arrest. Possible contribution from vancomycin-induced nephropathy as well as rhabdomyolysis cannot be ruled out. Cardiorenal syndrome is another contributing factor. 2. Anasarca/volume overload. 3. Chronic kidney disease stage 3/4. Most likely due to hypertension and diabetes with possible contribution for chronic congestive heart failure. 4. Rhabdomyolysis. CPK is down. 5. Hypertension: Control is better. 6. Paroxysmal atrial fibrillation. Now on Cardizem infusion. 7. Hypernatremia: Mild. PLAN: 1. Continue diuretic therapy with Lasix and metolazone. Creatinine is trending upwards, that the patient is clearly fluid overloaded. We will monitor intake and output strictly. We will also check daily weights. 2. We will monitor electrolytes and replete as needed. 3. We defer blood pressure control to Cardiology as the patient has need for rate control. Other treatment as per Pulmonary and Critical Care as well as primary attending. Job ID: [id number]
[2019-09-11] MEDS: Warfarin Sodium 5 MG TAB PO SCH (17:05)
[2019-09-11] MEDS: Carvedilol 25 MG TAB PO SCH (20:41)
[2019-09-11] MEDS: Acetaminophen 325 MG TAB PO PRN (23:56)
[2019-09-12] MEDS: Piperacillin/Tazobactam 3.375 GM in Sodium Chloride 0.9% 100 ML IVPB SCH ×2 (02:45→09:13)
[2019-09-12] MEDS: Furosemide 40 MG/4 ML VIAL SLOW IVP SCH ×3 (05:34→21:48)
[2019-09-12 05:37] LABS: #Basophils 0.1 thou/uL (0.0-0.2); #Eosinphils 0.1 thou/uL (0.0-0.7); #Lymphocytes 1.4 thou/uL (1.20-3.40); #Monocytes 0.9 thou/uL (0.11-0.59); #Neutrophils 4.3 thou/uL (1.40-6.50); %Basophils 1.2 % (0.0-1.0); %Eosinophils 1.2 % (0.0-10.0); %Lymphocytes 20.9 % (21.0-51.0); %Neutrophils 63.9 % (42.0-75.0); Hemoglobin 8.4 g/dL (14.0-18.0); Mean Corpuscular HGB CONC 31.7 g/dL (32.0-36.0); Mean Corpuscular Hemoglobin 29.6 pg (27.0-31.0); Mean Corpuscular Volume 93.4 fL (78.0-98.0); Mean Platelet Volume 7.9 fL (7.4-10.4); Platelet Count 194 thou/uL (130-400); Prothrombin Time 44.4 SEC (12.0-14.7); RBC Distribution Width 12.7 % (11.5-14.5); Red Blood Cell (RBC) Count 2.85 mill/uL (4.70-6.10); White Blood Cell (WBC) Count 6.8 thou/uL (4.8-10.8)
[2019-09-12 05:42] LABS: INR-International Normal Ratio 4.8
[2019-09-12 06:01] LABS: ALT (SGPT) 34 U/L (8-55); AST (SGOT) 21 U/L (5-34); Albumin 3.4 g/dL (3.5-5.0); Alkaline Phosphatase 80 U/L (40-110); BUN (Urea Nitrogen) 25 mg/dL (8.4-25.7); BUN/Creatinine Ratio 8.93; Bilirubin, Direct 0.3 mg/dL (0.1-0.3); Bilirubin, Total 0.7 mg/dL (0.2-1.2); Calc. Creatinine Clearance 44 mL/min (70-130); Calcium 9.2 mg/dL (7.8-10.44); Estimated GFR-MDRD 28; Glucose 97 mg/dL (70-105); Magnesium 1.7 mg/dL (1.6-2.6); Phosphorus 3.4 mg/dL (2.3-4.7)
[2019-09-12 06:10] LABS: Anion Gap 18 mmol/L (10-20); Carbon Dioxide 33 mmol/L (22-29); Chloride 96 mmol/L (98-107); Potassium 3.2 mmol/L (3.5-5.1); Sodium 144 mmol/L (136-145)
--- NOTE | 2019-09-12 07:56 | RAD ---
XR Chest 1 View Portable History: Pneumonia Comparison: Radiograph prior day Findings: Heart size is enlarged. Mild edema. Small effusions. No pneumothorax. Overall the pulmonary edema has slightly improved. Impression: Improved aeration of the lungs suggesting/improving edema.
[2019-09-12] MEDS: Magnesium Oxide 400 MG TAB PO SCH ×2 (09:14→21:48)
[2019-09-12] MEDS: Potassium Chloride 20 MEQ TAB PO SCH ×2 (09:14→18:26)
[2019-09-12] MEDS: Carvedilol 25 MG TAB PO SCH ×2 (09:14→21:48)
[2019-09-12] MEDS: Metolazone 5 MG TAB PO SCH (09:15)
--- NOTE | 2019-09-12 09:37 | PRG ---
DATE OF SERVICE: 09/12/2019 SUBJECTIVE: This morning, he is still having some right-sided chest pain. He has a big area of ecchymosis from a cardioversion that did not look infected. OBJECTIVE: VITAL SIGNS: Temperature 97, pulse 80, respirations 17, and blood pressure 140/70. CHEST: Decreased breath sounds. No wheezing. CARDIAC: Normal S1 and S2. LABORATORY DATA: White count is 6000, platelet count is normal, and H and H are unremarkable. Creatinine is elevated. X-ray shows cardiomegaly and CHF. IMPRESSION: Congestive heart failure, status post cardiopulmonary arrest. PLAN: Deescalate his antibiotics except for his Escherichia coli coverage. Continue supportive care, PT. We will follow. Job ID: [id number]
[2019-09-12] MEDS: Warfarin Sodium 5 MG TAB PO SCH (09:59)
--- NOTE | 2019-09-12 10:21 | PDOC.HOSPP ---
- Subjective Encounter Date: 09/12/19 Encounter Time: 10:16 Subjective: alert, no distress , some pain at cardiversion site - Objective Vital Signs & Weight: Vital Signs (12 hours) Temp Pulse Resp Pulse Ox 09/12/19 08:49 99 09/12/19 08:41 94 17 99 09/12/19 04:00 98.5 F 09/12/19 02:07 94 14 100 09/12/19 00:00 99.3 F 09/11/19 22:37 96 20 100 Weight Admit Weight 279 lb 5.211 oz Weight 238 lb 15.697 oz Most Recent Monitor Data Heart Rate from ECG 82 NIBP 147/77 NIBP BP-Mean 100 Respiration from ECG 18 SpO2 100 I&O: 09/11/19 09/12/19 09/13/19 06:59 06:59 06:59 Intake Total 586 1862 Output Total 8832 4355 Balance -6872 -793 Result Diagrams: 09/12/19 05:20 09/12/19 05:20 Additional Labs: Accuchecks 09/12/19 09/12/19 09/11/19 05:36 00:03 19:30 POC Glucose 97 112 H 138 H 09/11/19 09/11/19 17:00 12:05 POC Glucose 110 135 H Radiology Reviewed by me: Yes (cxr-cardiomaly, PVC) Hospitalist ROS - Medication Medications: Active Medications Generic Name Dose Route Start Last Admin Trade Name Freq PRN Reason Stop Dose Admin Acetaminophen 650 mg 09/11/19 23:04 09/11/19 23:56 Tylenol PO 650 mg Q6H PRN Administration Headache/Fever or Pain Albuterol/Ipratropium 3 ml 09/10/19 10:30 09/12/19 08:41 Duoneb EZPAP 3 ml [id number] LEEANN Administration Carvedilol 25 mg 09/11/19 21:00 09/12/19 09:14 Coreg PO 25 mg BID LEEANN Administration Dextrose/Water 25 gm 09/07/19 01:06 09/07/19 21:10 Dextrose 50% SLOW IVP 25 gm PRN PRN Administration Hypoglycemia Famotidine 20 mg 09/07/19 09:00 09/11/19 08:59 Pepcid SLOW IVP 20 mg DAILY LEEANN Administration Furosemide 40 mg 09/10/19 14:00 09/12/19 05:34 Lasix SLOW IVP 40 mg Q8HR LEEANN Administration Diltiazem HCl 125 mg/ 125 mls @ 0 mls/hr 09/11/19 03:00 09/11/19 03:06 Miscellaneous Medication 1 IVPB 125 mls each/ Sodium Chloride INF LEEANN Administration Protocol As Directed Magnesium Oxide 400 mg 09/12/19 09:00 09/12/19 09:14 Magnesium Oxide PO 400 mg BID LEEANN Administration Metolazone 5 mg 09/12/19 08:30 09/12/19 09:15 Zaroxolyn PO 5 mg 0830 LEEANN Administration Potassium Chloride 40 meq 09/12/19 08:00 09/12/19 09:14 K-Dur PO 40 meq BID-WM LEEANN Administration Sodium Chloride 10 ml 09/07/19 09:00 09/12/19 09:26 Flush - Normal Saline IVF Not Given Q12HR LEEANN Warfarin Sodium 2 mg 09/10/19 17:00 09/12/19 09:59 Coumadin PO Not Given 1700 LEEANN - Exam General Appearance: NAD Neck: no JVD Heart: RRR, no murmur Respiratory: CTAB Gastrointestinal: soft, normal bowel sounds Extremities: no edema Hosp A/P (1) Diabetes Code(s): E11.9 - TYPE 2 DIABETES MELLITUS WITHOUT COMPLICATIONS Status: Acute Qualifiers: Diabetes mellitus type: type 2 Diabetes mellitus fdc insulin use: with fdc use Diabetes mellitus complication status: with kidney complications Diabetes mellitus complication detail: with chronic kidney disease Chronic kidney disease stage: stage 3 (moderate) Qualified Code(s): E11.22 - Type 2 diabetes mellitus with diabetic chronic kidney disease; N18.3 - Chronic kidney disease, stage 3 (moderate); Z79.4 - intermediate frame tender (current) use of insulin (2) DVT (deep venous thrombosis) Code(s): I82.409 - ACUTE EMBOLISM AND THOMBOS UNSP DEEP VN UNSP LOWER EXTREMITY Status: Acute Qualifiers: DVT location: lower extremity Affected thrombotic vein of extremity: femoral Chronicity: acute Laterality: left Qualified Code(s): I82.412 - Acute embolism and thrombosis of left femoral vein (3) Encephalopathy acute Code(s): G93.40 - ENCEPHALOPATHY, UNSPECIFIED Status: Acute (4) Acute on chronic diastolic (congestive) heart failure Code(s): I50.33 - ACUTE ON CHRONIC DIASTOLIC (CONGESTIVE) HEART FAILURE Status : Acute (5) UTI (urinary tract infection) Status: Acute Qualifiers: Urinary tract infection type: site unspecified Hematuria presence: without hematuria Qualified Code(s): N39.0 - Urinary tract infection, site not specified (6) Acute kidney injury superimposed on CKD Code(s): N17.9 - ACUTE KIDNEY FAILURE, UNSPECIFIED; N18.9 - CHRONIC KIDNEY DISEASE, UNSPECIFIED Status: Acute (7) Cardiac arrest Code(s): I46.9 - CARDIAC ARREST, CAUSE UNSPECIFIED Status: Acute - Plan some what more alert cont anticoag cont antibx improving steadily Diastolic heart failure clearing discuss with intensivit, cardiology
[2019-09-12] MEDS: Famotidine/PF 20 mg/2ml Vial SLOW IVP SCH (14:33)
[2019-09-12] MEDS ORDERED: Warfarin Sodium 5 MG TAB PO SCH (17:00)
--- NOTE | 2019-09-12 17:34 | PRG ---
DATE OF SERVICE: 09/12/2019 SUBJECTIVE: A 58-year-old male, admitted after a cardiac arrest. Nephrology is following the patient for NATHANIEL on CKD as well as anasarca. The patient reports feeling better today. Shortness of breath also has improved. Complains of anterior chest wall pain. Denied nausea or vomiting. Oral intake is improving. OBJECTIVE: VITAL SIGNS: Temperature 98.6, pulse 86, respiratory rate 18, SpO2 100 on oxygen supplementation, and blood pressure is 158/88. GENERAL: Male patient, in no obvious distress. Afebrile. Anicteric. HEENT: Normocephalic and atraumatic. Oral mucosa is moist. CARDIOVASCULAR: Regular rhythm and rate with normal heart sounds 1 and 2. RESPIRATORY: Fair air entry bilaterally with few bibasilar crackles. No rhonchi were appreciated. GI: Abdomen is obese, soft, nontender, nondistended with normal bowel sounds. EXTREMITIES: Mild right and moderate left lower extremity edema noted. 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 Some memory lapses noted. Moves all extremities. DIAGNOSTIC DATA: CBC showed WBC count of 6.8, hemoglobin of 8.4, MCV of 93.4, platelets of 194. Coagulation panel showed PTT 44.4, INR 4.8. CMP showed sodium 144, potassium 3.2, chloride 96, CO2 33, BUN 25, creatinine 2.80, glucose 97, calcium 9.2, phosphorus 3.4, magnesium 1.7, total bilirubin 0.7, AST 21, ALT 34, alkaline phosphatase 80, total protein 7.0, albumin 3.4. ASSESSMENT: 1. [id number]-[id number] renal failure, most likely due to hemodynamic factors related to cardiac arrest. The patient has baseline chronic kidney disease, stage 4. Cardiorenal syndrome and rhabdomyolysis may have been contributory. Creatinine is down overnight from 3.1 to 2.8 with continuation of diuretics pointing to some cardiorenal component. Volume status is approaching euvolemia. 2. Anasarca/volume overload, improving with diuretic therapy. 3. Chronic kidney disease, stage 4, most likely due to hypertension and diabetes with possible contribution from chronic congestive heart failure with cardiorenal syndrome. 4. Rhabdomyolysis, resolved. 5. Hypertension. Control is better. 6. Paroxysmal atrial fibrillation. 7. Hypernatremia, resolved. PLAN: 1. Continue diuretic therapy with Lasix and metolazone. 2. Replete serum potassium with potassium chloride. 3. Repeat renal function in the morning. 4. Anticipated deescalation of diuretic therapy tomorrow. Other treatment as per Primary Attending. Job ID: [id number]
[2019-09-12] MEDS: Acetaminophen 325 MG TAB PO PRN (18:26)
[2019-09-12] MEDS: Cefdinir 300 MG CAP PO SCH (21:48)
[2019-09-13 04:23] LABS: INR-International Normal Ratio 3.4; Prothrombin Time 34.4 SEC (12.0-14.7)
[2019-09-13 04:47] LABS: Albumin 3.6 g/dL (3.5-5.0); BUN (Urea Nitrogen) 22 mg/dL (8.4-25.7); BUN/Creatinine Ratio 9.05; Calc. Creatinine Clearance 50 mL/min (70-130); Calcium 9.6 mg/dL (7.8-10.44); Estimated GFR-MDRD 33; Glucose 129 mg/dL (70-105); Phosphorus 3.2 mg/dL (2.3-4.7)
[2019-09-13 04:56] LABS: Anion Gap 18 mmol/L (10-20); Carbon Dioxide 35 mmol/L (22-29); Chloride 93 mmol/L (98-107); Potassium 3.9 mmol/L (3.5-5.1); Sodium 142 mmol/L (136-145)
[2019-09-13] MEDS: Furosemide 40 MG/4 ML VIAL SLOW IVP SCH (07:18)
--- NOTE | 2019-09-13 08:17 | PDOC.HOSPP ---
- Subjective Encounter Date: 09/13/19 Encounter Time: 08:16 Subjective: no complaints, oriented to person only - Objective Vital Signs & Weight: Vital Signs (12 hours) Temp Pulse Resp Pulse Ox 09/13/19 04:00 98.7 F 09/13/19 02:23 97 23 H 100 09/12/19 22:00 95 19 100 Weight Admit Weight 279 lb 5.211 oz Weight 238 lb 15.697 oz Most Recent Monitor Data Heart Rate from ECG 94 NIBP 132/76 NIBP BP-Mean 94 Respiration from ECG 16 SpO2 99 I&O: 09/12/19 09/13/19 09/14/19 06:59 06:59 06:59 Intake Total 1862 1114 Output Total 2661 3540 Balance -538 -2412 Result Diagrams: 09/12/19 05:20 09/13/19 04:07 Additional Labs: Accuchecks 09/12/19 09/12/19 21:57 16:11 POC Glucose 125 H 125 H Radiology Reviewed by me: Yes (cxr-bilat infiltrates, improving) Hospitalist ROS - Medication Medications: Active Medications Generic Name Dose Route Start Last Admin Trade Name Freq PRN Reason Stop Dose Admin Acetaminophen 650 mg 09/11/19 23:04 09/12/19 18:26 Tylenol PO 650 mg Q6H PRN Administration Headache/Fever or Pain Albuterol/Ipratropium 3 ml 09/10/19 10:30 09/13/19 02:23 Duoneb EZPAP 3 ml [id number] LEEANN Administration Carvedilol 25 mg 09/11/19 21:00 09/12/19 21:48 Coreg PO 25 mg BID LEEANN Administration Cefdinir 300 mg 09/12/19 21:00 09/12/19 21:48 Omnicef PO 300 mg BID LEEANN Administration Dextrose/Water 25 gm 09/07/19 01:06 09/07/19 21:10 Dextrose 50% SLOW IVP 25 gm PRN PRN Administration Hypoglycemia Famotidine 20 mg 09/07/19 09:00 09/12/19 14:33 Pepcid SLOW IVP 20 mg DAILY LEEANN Administration Furosemide 40 mg 09/10/19 14:00 09/13/19 07:18 Lasix SLOW IVP 40 mg Q8HR LEEANN Administration Magnesium Oxide 400 mg 09/12/19 09:00 09/12/19 21:48 Magnesium Oxide PO 400 mg BID LEEANN Administration Metolazone 5 mg 09/12/19 08:30 09/12/19 09:15 Zaroxolyn PO 5 mg 0830 LEEANN Administration Potassium Chloride 40 meq 09/12/19 08:00 09/12/19 18:26 K-Dur PO 40 meq BID-WM LEEANN Administration Sodium Chloride 10 ml 09/07/19 09:00 09/12/19 21:49 Flush - Normal Saline IVF 10 ml Q12HR LEEANN Administration - Exam General Appearance: NAD Neck: no JVD Heart: RRR, no murmur Respiratory - other findings: coarse BS, nonfocal exam Gastrointestinal: soft, normal bowel sounds Extremities: no edema Hosp A/P (1) Acute kidney injury superimposed on CKD Code(s): N17.9 - ACUTE KIDNEY FAILURE, UNSPECIFIED; N18.9 - CHRONIC KIDNEY DISEASE, UNSPECIFIED Status: Acute (2) Encephalopathy acute Code(s): G93.40 - ENCEPHALOPATHY, UNSPECIFIED Status: Acute (3) Diabetes Code(s): E11.9 - TYPE 2 DIABETES MELLITUS WITHOUT COMPLICATIONS Status: Acute Qualifiers: Diabetes mellitus type: type 2 Diabetes mellitus fpc insulin use: with fpc use Diabetes mellitus complication status: with kidney complications Diabetes mellitus complication detail: with chronic kidney disease Chronic kidney disease stage: stage 3 (moderate) Qualified Code(s): E11.22 - Type 2 diabetes mellitus with diabetic chronic kidney disease; N18.3 - Chronic kidney disease, stage 3 (moderate); Z79.4 - supervisor intermediates (current) use of insulin (4) DVT (deep venous thrombosis) Code(s): I82.409 - ACUTE EMBOLISM AND THOMBOS UNSP DEEP VN UNSP LOWER EXTREMITY Status: Acute Qualifiers: DVT location: lower extremity Affected thrombotic vein of extremity: femoral Chronicity: acute Laterality: left Qualified Code(s): I82.412 - Acute embolism and thrombosis of left femoral vein (5) Acute on chronic diastolic (congestive) heart failure Code(s): I50.33 - ACUTE ON CHRONIC DIASTOLIC (CONGESTIVE) HEART FAILURE Status : Acute (6) UTI (urinary tract infection) Status: Acute Qualifiers: Urinary tract infection type: site unspecified Hematuria presence: without hematuria Qualified Code(s): N39.0 - Urinary tract infection, site not specified (7) Cardiac arrest Code(s): I46.9 - CARDIAC ARREST, CAUSE UNSPECIFIED Status: Acute - Plan some what more alert cont anticoag cont antibx improving steadily Diastolic heart failure clearing discuss with intensivit, cardiology
[2019-09-13] MEDS ORDERED: AcetaZOLAMIDE 250 MG TAB PO SCH (08:30)
[2019-09-13] MEDS: Potassium Chloride 20 MEQ TAB PO SCH ×2 (08:35→17:17)
[2019-09-13] MEDS: Metolazone 5 MG TAB PO SCH (08:35)
[2019-09-13] MEDS: Cefdinir 300 MG CAP PO SCH ×2 (08:36→20:43)
[2019-09-13] MEDS: Famotidine/PF 20 mg/2ml Vial SLOW IVP SCH (08:36)
[2019-09-13] MEDS: Carvedilol 25 MG TAB PO SCH ×2 (08:36→20:44)
[2019-09-13] MEDS: Magnesium Oxide 400 MG TAB PO SCH ×2 (08:36→20:44)
[2019-09-13] MEDS: Acetaminophen 325 MG TAB PO PRN (08:37)
--- NOTE | 2019-09-13 09:17 | PRG ---
DATE OF SERVICE: 09/13/2019 SUBJECTIVE: This morning, awake, alert, and responsive. OBJECTIVE: VITAL SIGNS: Saturations 99% on room air, temperature 98, pulse 94, blood pressure 130/76, respiratory rate 18. CHEST: No wheezing. CARDIAC: Normal S1 and S2. No gallops. ABDOMEN: No masses. LABORATORY DATA: INR is 3.4, creatinine 2.43. IMPRESSION: Status post cardiopulmonary respiratory failure, congestive heart failure, renal failure, deep venous thrombosis. PLAN: Continue Coumadin. Continue PT, supportive care. He can be transferred out of the ICU when bed is available. We will follow. Job ID: [id number]
--- NOTE | 2019-09-13 09:52 | RAD ---
CHEST 1 VIEW: Date: 09/13/19 COMPARISON: 09/12/19. HISTORY: Pneumonia. FINDINGS: Cardiomegaly. Pulmonary vessels and hilum are normal. Costophrenic angles are clear. No consolidation or mass. No pneumothorax or osseous abnormalities. IMPRESSION: Cardiomegaly. No significant interval change. POS: [facility]
[2019-09-13] MEDS: HumaLOG 300 UNITS/3 ML VIAL SC PRN (11:59)
--- NOTE | 2019-09-13 14:09 | PRG ---
DATE OF SERVICE: 09/13/2019 SERVICE: Nephrology. SUBJECTIVE: A 58-year-old male admitted after cardiac arrest. Nephrology is following for NATHANIEL on CKD as well as anasarca. The patient is clinically improved. Shortness of breath has improved. The patient is more conversational, but still has memory lapses. OBJECTIVE: VITAL SIGNS: Temperature 99.0, pulse 94, respiratory rate 19, SpO2 of 92 on 1 L nasal cannula, and blood pressure is 164/88. GENERAL: Male patient, in no obvious distress. Afebrile. HEENT: Normocephalic and atraumatic. Oral mucosa is moist. CARDIOVASCULAR: Regular rhythm and rate. Normal heart sounds one and two. RESPIRATORY: Fair air entry bilaterally with few bibasilar crackles. No rhonchi or use of accessory muscles appreciated. ABDOMEN: Obese, enlarged, soft, and nondistended with normal bowel sounds. EXTREMITIES: Fhvck-zo-bzaf right leg edema as well as moderate left lower extremity edema noted. 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 Memory lapse is noted. Moves all extremities. DIAGNOSTIC DATA: Renal function panel today showed sodium 142, potassium 3.9, chloride 93, CO2 of 35, BUN 22, creatinine 2.43, calcium 9.6, phosphorus 3.2, and albumin 3.6. Chest x-ray showed cardiomegaly with pulmonary vessels and hilum that are normal. Costophrenic angles are clear and there is no consolidation pneumothorax or osseous abnormality. Pulmonary congestion has improved significantly. ASSESSMENT: 1. Acute on chronic renal failure: Due to hemodynamic factors related to cardiac arrest. Cardiorenal syndrome also is contributory as with diuretics. Renal function is improving. 2. Chronic kidney disease stage 3/4. Most likely related to diabetes and hypertension. 3. Anasarca: Markedly improved with diuretics. 4. Rhabdomyolysis: Resolved. 5. Hypertension: Control is better, but still suboptimal. 6. Paroxysmal atrial fibrillation. 7. Hyponatremia: Resolved. PLAN: 1. We will continue diuretic therapy. We will; however, deescalate Lasix dose given improvement in anasarca. We will give a dose of acetazolamide given metabolic acidosis with CO2 of 35. We will discontinue metolazone. Lasix 40 mg p.o. b.i.d. will be continued. 2. We will repeat renal function in the morning. We will monitor electrolytes and replete as needed. Job ID: [id number]
[2019-09-13] MEDS: Furosemide 40 MG TAB PO SCH (17:16)
[2019-09-13] MEDS: traMADol HCl 50 MG TAB PO PRN (20:53)
[2019-09-14] MEDS: traMADol HCl 50 MG TAB PO PRN ×2 (03:57→20:35)
[2019-09-14 05:24] LABS: INR-International Normal Ratio 2.7; Prothrombin Time 28.7 SEC (12.0-14.7)
[2019-09-14 05:54] LABS: Albumin 3.6 g/dL (3.5-5.0); Anion Gap 13 mmol/L (10-20); BUN (Urea Nitrogen) 20 mg/dL (8.4-25.7); BUN/Creatinine Ratio 9.66; Calc. Creatinine Clearance 58 mL/min (70-130); Calcium 9.4 mg/dL (7.8-10.44); Carbon Dioxide 37 mmol/L (22-29); Chloride 94 mmol/L (98-107); Estimated GFR-MDRD 40; Glucose 173 mg/dL (70-105); Phosphorus 3.4 mg/dL (2.3-4.7); Potassium 4.3 mmol/L (3.5-5.1); Sodium 140 mmol/L (136-145)
[2019-09-14] MEDS: Potassium Chloride 20 MEQ TAB PO SCH ×2 (07:45→17:14)
[2019-09-14] MEDS: Furosemide 40 MG TAB PO SCH ×2 (07:46→17:14)
[2019-09-14] MEDS: Famotidine 20 MG TAB PO SCH (07:46)
[2019-09-14] MEDS: Magnesium Oxide 400 MG TAB PO SCH ×2 (07:46→20:35)
[2019-09-14] MEDS: Cefdinir 300 MG CAP PO SCH ×2 (07:46→20:35)
[2019-09-14] MEDS: Carvedilol 25 MG TAB PO SCH ×2 (07:46→20:35)
--- NOTE | 2019-09-14 08:49 | RAD ---
CHEST 1 VIEW: COMPARISON: 09/26/2019. HISTORY: Pneumonia. FINDINGS: Stable cardiomegaly. Costophrenic angles are clear. Right infrahilar infiltrate and possible left lower lobe infiltrate are suggested. No pneumothorax o r osseous abnormalities. IMPRESSION: 1. Bibasilar infiltrates. 2. Cardiomegaly. POS: OFF
[2019-09-14 08:50] LABS: Hemoglobin 8.9 g/dL (14.0-18.0); Mean Corpuscular HGB CONC 30.9 g/dL (32.0-36.0); Mean Corpuscular Volume 93.8 fL (78.0-98.0); Platelet Count 246 thou/uL (130-400); RBC Distribution Width 12.6 % (11.5-14.5); Red Blood Cell (RBC) Count 3.06 mill/uL (4.70-6.10); White Blood Cell (WBC) Count 9.1 thou/uL (4.8-10.8)
[2019-09-14 09:11] LABS: Iron 28 ug/dL (65-175); Iron Binding Capacity, Total 190 mcg/dL (261-462)
--- NOTE | 2019-09-14 09:46 | PRG ---
DATE OF SERVICE: 09/14/2019 SUBJECTIVE: This morning, he is better, less short of breath. He is still somewhat encephalopathic. OBJECTIVE: VITAL SIGNS: Temperature 98, pulse 83, saturations are 98 on 1 L, respirations 16, blood pressure CHEST: Decreased breath sounds. No wheezing. CARDIAC: Normal S1 and S2. No gallops. ABDOMEN: No masses. IMAGING STUDIES: X-ray shows some cardiomegaly. IMPRESSION: Respiratory failure, status post CPR; congestive heart failure, encephalopathy. Pulmonary headley, he is much improved. Continue PT, supportive care, eventually placement. Job ID: [id number]
[2019-09-14] MEDS ORDERED: Epoetin (ESRD) 10,000 UNITS/ML VIAL SC SCH (10:45)
[2019-09-14] MEDS ORDERED: Iron, Sodium Ferric Gluconate 250 MG in Sodium Chloride 0.9% 100 ML IVPB SCH (11:00)
[2019-09-14] MEDS: EPOETIN ALFA-EPBX (ESRD) 10,000 UNIT/ML VIAL SC SCH ×2 (11:09→11:16)
[2019-09-14] MEDS ORDERED: EPOETIN ALFA-EPBX (ESRD) 10,000 UNIT/ML VIAL SC SCH (11:15)
[2019-09-14] MEDS ORDERED: Amlodipine 5 MG TAB PO SCH (14:15)
--- NOTE | 2019-09-14 14:32 | PDOC.HOSPP ---
- Subjective Subjective: Seen and examined. Patient knows his name, knows he is in [facility] in [facility], he knows the year. Patient has poor insight in the clinical condition or why he is in the hospital. Patient's only complain to me this morning is nerve pain in the left leg, he states that gabapentin has helped. Patient breathing well on low-flow nasal cannula. All questions answered in detail. - Objective Vital Signs & Weight: Vital Signs (12 hours) Temp Pulse Pulse Pulse Resp BP BP 09/14/19 11:52 97.5 F L 77 16 09/14/19 10:14 73 16 09/14/19 09:24 85 79 148/79 H 152/75 H 09/14/19 07:40 98.1 F 83 16 09/14/19 07:22 09/14/19 07:21 84 18 09/14/19 04:00 98.8 F 89 18 BP Pulse Ox 09/14/19 11:52 165/81 H 98 09/14/19 10:14 99 09/14/19 09:24 09/14/19 07:40 144/75 H 98 09/14/19 07:22 97 09/14/19 07:21 97 09/14/19 04:00 157/73 H 97 Weight Admit Weight 279 lb 5.211 oz Weight 230 lb 1.6 oz Most Recent Monitor Data Heart Rate from ECG 92 NIBP 164/88 NIBP BP-Mean 113 Respiration from ECG 18 SpO2 100 I&O: 09/13/19 09/14/19 09/15/19 06:59 06:59 06:59 Intake Total 1114 1422.4 Output Total 2350 2315 Balance -1236 -892.6 Result Diagrams: 09/14/19 08:26 09/14/19 04:30 Additional Labs: Accuchecks 09/14/19 09/14/19 09/13/19 10:50 05:19 20:17 POC Glucose 129 H 181 H 159 H 09/13/19 16:42 POC Glucose 124 H Radiology Reviewed by me: Yes (CXR) Hospitalist ROS - Review of Systems All other systems reviewed; all pertinent +/- noted in HPI/Subj - Medication Medications: Active Medications Generic Name Dose Route Start Last Admin Trade Name Freq PRN Reason Stop Dose Admin Acetaminophen 650 mg 09/11/19 23:04 09/13/19 08:37 Tylenol PO 650 mg Q6H PRN Administration Headache/Fever or Pain Albuterol/Ipratropium 3 ml 09/14/19 13:00 09/14/19 13:13 Duoneb NEB Not Given [id number] LEEANN Carvedilol 25 mg 09/11/19 21:00 09/14/19 07:46 Coreg PO 25 mg BID LEEANN Administration Cefdinir 300 mg 09/12/19 21:00 09/14/19 07:46 Omnicef PO 300 mg BID LEEANN Administration Dextrose/Water 25 gm 09/07/19 01:06 09/07/19 21:10 Dextrose 50% SLOW IVP 25 gm PRN PRN Administration Hypoglycemia Famotidine 20 mg 09/14/19 09:00 09/14/19 07:46 Pepcid PO 20 mg DAILY LEEANN Administration Furosemide 40 mg 09/13/19 17:00 09/14/19 07:46 Lasix PO 40 mg 0900,1700 LEEANN Administration Insulin Human Lispro 0 units 09/07/19 01:06 09/13/19 11:59 Humalog SC 2 unit .MODERATE SLIDING SC PRN Administration Moderate Correctional Scale Magnesium Oxide 400 mg 09/12/19 09:00 09/14/19 07:46 Magnesium Oxide PO 400 mg BID LEEANN Administration Potassium Chloride 40 meq 09/12/19 08:00 09/14/19 07:45 K-Dur PO 40 meq BID-WM LEEANN Administration Sodium Chloride 10 ml 09/07/19 09:00 09/14/19 07:46 Flush - Normal Saline IVF 10 ml Q12HR LEEANN Administration Tramadol HCl 50 mg 09/12/19 09:04 09/14/19 03:57 Ultram PO 50 mg Q6H PRN Administration Breakthrough Pain - Exam General Appearance: NAD Eye: PERRL, anicteric sclera ENT: normocephalic atraumatic, moist mucosa Neck: supple, symmetric, no lymphadenopathy Heart: no murmur, no gallops, no rubs Respiratory: CTAB, no wheezes, no rales, no ronchi Gastrointestinal: soft, non-tender, no guarding, no rigidity Extremities: 1+ LE edema Skin: no lesions, no rashes Neurological: cranial nerve grossly intact, no new deficit. negative: speech deficit Musculoskeletal: generalized weakness Psychiatric: A&O x 3, flat affect Hosp A/P (1) Acute kidney injury superimposed on CKD Code(s): N17.9 - ACUTE KIDNEY FAILURE, UNSPECIFIED; N18.9 - CHRONIC KIDNEY DISEASE, UNSPECIFIED Status: Acute (2) Acute on chronic diastolic (congestive) heart failure Code(s): I50.33 - ACUTE ON CHRONIC DIASTOLIC (CONGESTIVE) HEART FAILURE Status : Acute (3) Atrial fibrillation Code(s): I48.91 - UNSPECIFIED ATRIAL FIBRILLATION Status: Chronic (4) Cardiac arrest Code(s): I46.9 - CARDIAC ARREST, CAUSE UNSPECIFIED Status: Resolved (5) Diabetes Code(s): E11.9 - TYPE 2 DIABETES MELLITUS WITHOUT COMPLICATIONS Status: Chronic Qualifiers: Diabetes mellitus type: type 2 Diabetes mellitus termite treater helper insulin use: with termite treater helper use Diabetes mellitus complication status: with kidney complications Diabetes mellitus complication detail: with chronic kidney disease Chronic kidney disease stage: stage 3 (moderate) Qualified Code(s): E11.22 - Type 2 diabetes mellitus with diabetic chronic kidney disease; N18.3 - Chronic kidney disease, stage 3 (moderate); Z79.4 - long term (current) use of insulin (6) Encephalopathy acute Code(s): G93.40 - ENCEPHALOPATHY, UNSPECIFIED Status: Resolved (7) Pulmonary edema Code(s): J81.1 - CHRONIC PULMONARY EDEMA Status: Resolved (8) Positive blood culture Code(s): R78.81 - BACTEREMIA Status: Resolved (9) UTI (urinary tract infection) Status: Resolved Qualifiers: Urinary tract infection type: site unspecified Hematuria presence: without hematuria Qualified Code(s): N39.0 - Urinary tract infection, site not specified - Plan Plan: medical unit with telemetry pulmonology/critical-care consultation, recommendations appreciated nephrology consultation, recommendations appreciated continue oral antibiotics monitor for fluid overload in the setting of diastolic congestive heart failure Coumadin for atrial fibrillation, dosing per pharmacy blood pressure control blood sugar control patient has improved on maximal medical therapy will need subacute placement
--- NOTE | 2019-09-14 15:01 | PRG ---
DATE OF SERVICE: 09/14/2019 SERVICE: Nephrology. SUBJECTIVE: A 58-year-old male admitted after cardiac arrest. Nephrology is following for acute on chronic renal failure. The patient is feeling better, has been generally weak. Shortness of breath has improved. OBJECTIVE: VITAL SIGNS: Temperature 97.5, pulse 77, respiratory rate 16, SpO2 of 98% on 1 L nasal cannula, blood pressure is 165/81. GENERAL: Male patient in no obvious distress. Afebrile. Anicteric. HEENT: Normocephalic, atraumatic. Oral mucosa is moist. CARDIOVASCULAR: Regular rhythm and rate with normal heart sounds 1 and 2. RESPIRATORY: Fair air entry bilateral with bibasilar crackles. No obvious rhonchi appreciated. GI: Abdomen is obese, soft, nontender, nondistended with normal bowel sounds. EXTREMITIES: Left lower extremity edema noted. No edema of further extremities appreciated. ENGINEER/CONDUCTOR: Conscious and alert, oriented to person and place. Memory lapse is noted. DIAGNOSTIC DATA: CBC showed WBC count of 9.1, hemoglobin of 8.9, MCV of 93.8. Coagulation panel showed PT 28.7, INR 2.7. Renal function panel showed sodium 140, potassium 4.3, chloride 94, CO2 of 37, BUN 20, creatinine 2.07, glucose 173, calcium 9.4, phosphorus 3.4, albumin 3.6. Iron chemistry showed serum iron 28, TIBC 190, saturation 15%, and ferritin 587. Chest x-ray showed bibasilar infiltrates and cardiomegaly. ASSESSMENT: 1. Acute kidney injury: Due to hemodynamic factors related to cardiac arrest as well as cardiorenal syndrome. Renal function is improving with improving volume status with diuretics. 2. Chronic kidney disease stage 3/4. Most likely related to diabetes, hypertension, and cardiac decompensation. 3. Anasarca: Markedly improved with diuretics. 4. Rhabdomyolysis, resolved. 5. Hypertension. Control is suboptimal. 6. Paroxysmal atrial fibrillation. 7. Hyponatremia: Resolved. 8. Anemia of chronic kidney disease. PLAN: 1. We will continue diuretic at reduce rate. We will only do Lasix 40 b.i.d. 2. We will give the patient a dose of Ferrlecit and start Procrit 10,000 units Tuesday, Tuesday, Tuesday. 3. We will repeat renal function in the morning. 4. We will add low-dose amlodipine to get adequate blood pressure control. 5. Repeat renal function in the morning. Job ID: [id number]
--- NOTE | 2019-09-14 17:42 | PDOC.CPN ---
- Subjective Date: 09/14/19 Time: 17:39 Interval history: No new issues. Remains encephalopathic. - Review of Systems ROS unobtainable: due to mental status - Objective Allergies/Adverse Reactions: Allergies Allergy/AdvReac Type Severity Reaction Status Date / Time No Allergy Information Allergy Verified 09/07/19 01:46 Available Visit Medications: Current Medications Acetaminophen (Tylenol) 650 mg PO Q6H PRN PRN Reason: Headache/Fever or Pain Last Admin: 09/13/19 08:37 Dose: 650 mg Albuterol/Ipratropium (Duoneb) 3 ml NEB [id number] [facility] Last Admin: 09/14/19 13:13 Dose: Not Given Amlodipine Besylate (Norvasc) 2.5 mg PO DAILY [facility] Artificial Tears (Tears Naturale) 0 drop EA EYE Q1H PRN PRN Reason: DRY EYES Carvedilol (Coreg) 25 mg PO BID [facility] Last Admin: 09/14/19 07:46 Dose: 25 mg Cefdinir (Omnicef) 300 mg PO BID [facility] Last Admin: 09/14/19 07:46 Dose: 300 mg Dextrose/Water (Dextrose 50%) 25 gm SLOW IVP PRN PRN PRN Reason: Hypoglycemia Last Admin: 09/07/19 21:10 Dose: 25 gm Famotidine (Pepcid) 20 mg PO DAILY [facility] Last Admin: 09/14/19 07:46 Dose: 20 mg Furosemide (Lasix) 40 mg PO 0900,1700 [facility] Last Admin: 09/14/19 17:14 Dose: 40 mg Glucagon (Glucagon) 1 mg IM PRN PRN PRN Reason: Hypoglycemia Dextrose/Water (D5w) 1,000 mls @ 0 mls/hr IV .Q0M PRN PRN Reason: Hypoglycemia Potassium Chloride 40 meq/ (Sodium Chloride) 270 mls @ 135 mls/hr IVPB ASDIR PRN PRN Reason: FOR SERUM K+ 2.5 - 3.5 Potassium Chloride 40 meq/ (Device) 100 mls @ 50 mls/hr IVPB ASDIR PRN PRN Reason: FOR SERUM K+ 2.5 - 3.5 Magnesium Sulfate 1 gm/ Sodium (Chloride) 102 mls @ 102 mls/hr IV PRN PRN PRN Reason: MAG LEVEL 1.4 - 2.0 Magnesium Sulfate 2 gm/ Device 50 mls @ 50 mls/hr IVPB ASDIR PRN PRN Reason: MAGNESIUM < 1.4 Potassium Phosphate 9 mmol/ (Sodium Chloride) 103 mls @ 25.75 mls/hr IVPB ASDIR PRN PRN Reason: Phosphate 1.0-1.8 Potassium Phosphate 12 mmol/ (Sodium Chloride) 254 mls @ 63.5 mls/hr IV ASDIR PRN PRN Reason: Serum phosphate 0.5-0.9 Potassium Phosphate 15 mmol/ (Sodium Chloride) 255 mls @ 63.75 mls/hr IV ASDIR PRN PRN Reason: Serum Phos < 0.5 Insulin Human Lispro (Humalog) 0 units SC .MODERATE SLIDING SC PRN PRN Reason: Moderate Correctional Scale Last Admin: 09/13/19 11:59 Dose: 2 unit Insulin Human Lispro (Humalog) 0 units SC .BEDTIME SLIDING SC PRN PRN Reason: Bedtime Correctional Scale Lorazepam (Ativan) 1 mg SLOW IVP Q6H PRN PRN Reason: Agitation Magnesium Oxide (Magnesium Oxide) 400 mg PO BIDPRN PRN PRN Reason: FOR SERUM MAG 1.4 - 2.0 Magnesium Oxide (Magnesium Oxide) 800 mg PO PRN PRN PRN Reason: FOR SERUM MAG < 1.4 Magnesium Oxide (Magnesium Oxide) 400 mg PO BID LEEANN Last Admin: 09/14/19 07:46 Dose: 400 mg Miscellaneous Medication (Phos-Nak) 1 pkt PO TIDPRN PRN PRN Reason: FOR PHOS LEVEL 1.0 - 1.8 Miscellaneous Medication (Phos-Nak) 2 pkt PO TIDPRN PRN PRN Reason: FOR PHOS LEVEL 0.5 - 1.0 Morphine Sulfate (Morphine) 2 mg SLOW IVP Q1H PRN PRN Reason: BREAKTHROUGH PAIN/Agitation Stop: 10/07/19 01:11 Ondansetron HCl (Zofran Odt) 4 mg PO Q6H PRN PRN Reason: Nausea/Vomiting Ondansetron HCl (Zofran) 4 mg IVP Q6H PRN PRN Reason: Nausea/Vomiting Potassium Chloride (K-Dur) 40 meq PO ASDIR PRN PRN Reason: FOR SERUM K+ 2.5 - 3.5 Potassium Chloride (Klor-Con) 40 meq PER TUBE ASDIR PRN PRN Reason: FOR SERUM K+ 2.5-3.5 Potassium Chloride (K-Dur) 40 meq PO BID-WM LEEANN Last Admin: 09/14/19 17:14 Dose: 40 meq Sodium Chloride (Flush - Normal Saline) 10 ml IVF Q12HR LEEANN Last Admin: 09/14/19 07:46 Dose: 10 ml Sodium Chloride (Flush - Normal Saline) 10 ml IVF PRN PRN PRN Reason: Saline Flush Tramadol HCl (Ultram) 50 mg PO Q6H PRN PRN Reason: Breakthrough Pain Last Admin: 09/14/19 03:57 Dose: 50 mg Warfarin Sodium (Coumadin) 2 mg PO 1700 [facility] Vital Signs & Weight: Vital Signs Temp Pulse Pulse Pulse Resp BP BP 09/14/19 15:59 97.5 F L 81 15 09/14/19 11:52 97.5 F L 77 16 09/14/19 10:14 73 16 09/14/19 09:24 85 79 148/79 H 152/75 H 09/14/19 07:40 98.1 F 83 16 09/14/19 07:22 09/14/19 07:21 84 18 BP Pulse Ox 09/14/19 15:59 133/61 100 09/14/19 11:52 165/81 H 98 09/14/19 10:14 99 09/14/19 09:24 09/14/19 07:40 144/75 H 98 09/14/19 07:22 97 09/14/19 07:21 97 Admit Weight 279 lb 5.211 oz Weight 230 lb 1.6 oz - Physical Exam General: no apparent distress HEENT: normocephaly Neck: supple neck Cardiac: regular rate and rhythm Lungs: clear to auscultation Neuro: no lateralizing findings Abdomen: active bowel sounds Extremities: no edema Skin: clear Musculoskeletal: no pain - Labs Result Diagrams: 09/14/19 08:26 09/14/19 04:30 Troponin/CKMB CK-MB (CK-2) 15.3 ng/mL (0-6.6) H* 09/07/19 20:25 Troponin I 0.117 ng/mL (< 0.028) H 09/07/19 20:25 - Telemetry Sinus rhythms and dysrhythmias: sinus rhythm - Assessment/Plan Assessment/Plan: 1. S/P cardiac arrets, etiology unknown 2. Anoxic brain injury 3. Extensive DVT Left LE/Possible PE 4. Acute on chronic renal insufficiency 5. Normal LV function. PLAN: - Full anticoagulation with warfarin, INR therapeutic. - Continue other meds. - Placement
[2019-09-15 04:26] LABS: INR-International Normal Ratio 2.5
[2019-09-15 04:40] LABS: Albumin 3.6 g/dL (3.5-5.0); Anion Gap 14 mmol/L (10-20); BUN (Urea Nitrogen) 22 mg/dL (8.4-25.7); BUN/Creatinine Ratio 10.68; Calc. Creatinine Clearance 56 mL/min (70-130); Calcium 9.4 mg/dL (7.8-10.44); Carbon Dioxide 33 mmol/L (22-29); Chloride 97 mmol/L (98-107); Estimated GFR-MDRD 40; Glucose 121 mg/dL (70-105); Sodium 139 mmol/L (136-145)
[2019-09-15] MEDS: Cefdinir 300 MG CAP PO SCH ×2 (08:37→20:40)
[2019-09-15] MEDS: Magnesium Oxide 400 MG TAB PO SCH ×2 (08:37→20:40)
[2019-09-15] MEDS: Furosemide 40 MG TAB PO SCH ×2 (08:38→17:13)
[2019-09-15] MEDS: Amlodipine 5 MG TAB PO SCH (08:38)
[2019-09-15] MEDS: Famotidine 20 MG TAB PO SCH (08:38)
[2019-09-15] MEDS: Carvedilol 25 MG TAB PO SCH ×2 (08:39→20:40)
[2019-09-15] MEDS: traMADol HCl 50 MG TAB PO PRN (08:39)
--- NOTE | 2019-09-15 10:48 | PRG ---
DATE OF SERVICE: 09/15/2019 SERVICE: Nephrology. SUBJECTIVE: A 58-year-old male admitted after cardiac arrest. Nephrology is following for acute on chronic renal failure. Mental status is improving slowly. Shortness of breath also has improved and edema has regressed. No fever. No nausea or vomiting. OBJECTIVE: VITAL SIGNS: Temperature 98.6, pulse 89, respiratory rate 12, SpO2 100 on 2 L nasal cannula, blood pressure is 130/70. GENERAL: Male patient, in no obvious distress. Afebrile. Anicteric. Acyanotic. HEENT: Normocephalic, atraumatic. Oral mucosa is moist. NECK: Supple. No JVD appreciated. CARDIOVASCULAR: Regular rhythm and rate with normal heart sounds one and two. RESPIRATORY: Fair air entry bilaterally with bibasilar crackles. No rhonchi or use of accessory muscles appreciated. GASTROINTESTINAL: Obese, soft, nontender, nondistended with normal bowel sounds. EXTREMITIES: Mild left leg edema noted. Other extremities are grossly normal with no edema or erythema. CENTRAL NERVOUS SYSTEM: Conscious, alert, oriented x3 with appropriate mental status. Few memory lapse is noted. The patient also has some slow mentation. DIAGNOSTIC DATA: Renal function panel showed sodium 139, potassium 5.0, chloride 97, CO2 of 33, BUN 22, creatinine 2.06, glucose 121, calcium 9.4, phosphorus 4.0, albumin 3.6. Note that, creatinine is stable in the last 24 hours. ASSESSMENT: 1. Acute on chronic renal failure. Improved with diuretics and improvement of hemodynamics. [place] to be due to prerenal etiology related to cardiac arrest and cardiorenal syndrome. Creatinine is stable in the last 24 hours. This may be the new baseline. 2. Chronic kidney disease stage 3. Most likely due to cardiac dysfunction, hypertension, and diabetes. 3. Anasarca: Markedly improved. 4. : Repleted. 5. Hyponatremia: Resolved. 6. Anemia of chronic kidney disease. PLAN: 1. We will discontinue potassium supplementation. 2. We will continue current diuretic therapy with Lasix 40 mg b.i.d. 3. Continue Procrit Tuesday, Tuesday, and Tuesday for anemia and chronic kidney disease. 4. Blood pressure control is adequate. Continue current dose of amlodipine and Coreg. Avoid lisinopril for now due to renal function. 5. Recheck renal function in the morning. DISPOSITION: The patient can be discharged from Nephrology point of view at this point on current medications. However, close followup in the office is recommended in 1 to 2 weeks. Job ID: [id number]
[2019-09-15] MEDS: HumaLOG 300 UNITS/3 ML VIAL SC PRN (12:03)
--- NOTE | 2019-09-15 14:03 | PDOC.HOSPP ---
- Subjective Subjective: Seen and examined. Sitting upright in bed eating his breakfast without difficulties. Breathing well. No acute overnight events. Still with left leg discomfort that has been improving on gabapentin, though still interfering with his ability to walk without pain. Described as burning sensation. Was more severe in the feet though now has improved still present in the left thigh. Also may be explained by extensive DVT. - Objective Vital Signs & Weight: Vital Signs (12 hours) Temp Pulse Pulse Pulse Resp BP BP 09/15/19 11:33 97.3 F L 87 16 09/15/19 11:00 87 84 139/71 136/69 09/15/19 08:38 89 09/15/19 07:45 98.6 F 89 12 09/15/19 03:56 98.6 F 86 16 BP Pulse Ox 09/15/19 11:33 130/74 99 09/15/19 11:00 09/15/19 08:38 09/15/19 07:45 130/70 100 09/15/19 03:56 132/67 97 Weight Admit Weight 279 lb 5.211 oz Weight 232 lb 3.2 oz Most Recent Monitor Data Heart Rate from ECG 92 NIBP 164/88 NIBP BP-Mean 113 Respiration from ECG 18 SpO2 100 I&O: 09/14/19 09/15/19 09/16/19 06:59 06:59 06:59 Intake Total 1422.4 1640 Output Total 2315 Balance -892.6 1640 Result Diagrams: 09/14/19 08:26 09/15/19 04:03 Additional Labs: Accuchecks 09/15/19 09/15/19 09/15/19 11:00 05:35 05:27 POC Glucose 165 H 140 H 134 H 09/14/19 09/14/19 20:21 17:02 POC Glucose 151 H 143 H Radiology Reviewed by me: Yes Hospitalist ROS - Review of Systems All other systems reviewed; all pertinent +/- noted in HPI/Subj - Medication Medications: Active Medications Generic Name Dose Route Start Last Admin Trade Name Freq PRN Reason Stop Dose Admin Acetaminophen 650 mg 09/11/19 23:04 09/13/19 08:37 Tylenol PO 650 mg Q6H PRN Administration Headache/Fever or Pain Albuterol/Ipratropium 3 ml 09/14/19 13:00 09/15/19 13:52 Duoneb NEB 3 ml [id number] LEEANN Administration Amlodipine Besylate 2.5 mg 09/15/19 09:00 09/15/19 08:38 Norvasc PO 2.5 mg DAILY LEEANN Administration Carvedilol 25 mg 09/11/19 21:00 09/15/19 08:39 Coreg PO 25 mg BID LEEANN Administration Cefdinir 300 mg 09/12/19 21:00 09/15/19 08:37 Omnicef PO 300 mg BID LEEANN Administration Dextrose/Water 25 gm 09/07/19 01:06 09/07/19 21:10 Dextrose 50% SLOW IVP 25 gm PRN PRN Administration Hypoglycemia Famotidine 20 mg 09/14/19 09:00 09/15/19 08:38 Pepcid PO 20 mg DAILY LEEANN Administration Furosemide 40 mg 09/13/19 17:00 09/15/19 08:38 Lasix PO 40 mg 0900,1700 LEEANN Administration Insulin Human Lispro 0 units 09/07/19 01:06 09/15/19 12:03 Humalog SC 2 unit .MODERATE SLIDING SC PRN Administration Moderate Correctional Scale Magnesium Oxide 400 mg 09/12/19 09:00 09/15/19 08:37 Magnesium Oxide PO 400 mg BID LEEANN Administration Sodium Chloride 10 ml 09/07/19 09:00 09/15/19 08:40 Flush - Normal Saline IVF 10 ml Q12HR LEEANN Administration Tramadol HCl 50 mg 09/12/19 09:04 09/15/19 08:39 Ultram PO 50 mg Q6H PRN Administration Breakthrough Pain - Exam General Appearance: NAD, awake alert Eye: PERRL ENT: normocephalic atraumatic, moist mucosa Neck: supple, symmetric, no lymphadenopathy Heart: no murmur, no gallops, normal peripheral pulses, irregular Hosp A/P (1) Acute kidney injury superimposed on CKD Code(s): N17.9 - ACUTE KIDNEY FAILURE, UNSPECIFIED; N18.9 - CHRONIC KIDNEY DISEASE, UNSPECIFIED Status: Acute (2) Acute on chronic diastolic (congestive) heart failure Code(s): I50.33 - ACUTE ON CHRONIC DIASTOLIC (CONGESTIVE) HEART FAILURE Status : Acute (3) Atrial fibrillation Code(s): I48.91 - UNSPECIFIED ATRIAL FIBRILLATION Status: Chronic (4) Cardiac arrest Code(s): I46.9 - CARDIAC ARREST, CAUSE UNSPECIFIED Status: Resolved (5) Diabetes Code(s): E11.9 - TYPE 2 DIABETES MELLITUS WITHOUT COMPLICATIONS Status: Chronic Qualifiers: Diabetes mellitus type: type 2 Diabetes mellitus halfway 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 Diabetes mellitus complication status: with kidney complications Diabetes mellitus complication detail: with chronic kidney disease Chronic kidney disease stage: stage 3 (moderate) Qualified Code(s): E11.22 - Type 2 diabetes mellitus with diabetic chronic kidney disease; N18.3 - Chronic kidney disease, stage 3 (moderate); Z79.4 - FPC (current) use of insulin (6) Encephalopathy acute Code(s): G93.40 - ENCEPHALOPATHY, UNSPECIFIED Status: Resolved (7) Pulmonary edema Code(s): J81.1 - CHRONIC PULMONARY EDEMA Status: Resolved (8) Positive blood culture Code(s): R78.81 - BACTEREMIA Status: Resolved (9) UTI (urinary tract infection) Status: Resolved Qualifiers: Urinary tract infection type: site unspecified Hematuria presence: without hematuria Qualified Code(s): N39.0 - Urinary tract infection, site not specified - Plan Plan: medical unit with telemetry pulmonology/critical-care consultation, recommendations appreciated nephrology consultation, recommendations appreciated continue oral antibiotics monitor for fluid overload in the setting of diastolic congestive heart failure Coumadin for atrial fibrillation/ DVT, dosing per pharmacy Venogram with extensive Left leg DVT Gabapentin for nerve pain blood pressure control blood sugar control patient has improved on maximal medical therapy will need subacute placement
[2019-09-15] MEDS: Warfarin Sodium 2 MG TAB PO SCH (17:13)
--- NOTE | 2019-09-15 17:21 | PDOC.CPN ---
- Subjective Date: 09/15/19 Time: 17:20 Interval history: No new issues. More awake today. - Review of Systems General: denies: fever/chills, weight/appetite/sleep changes, night sweats, fatigue Respiratory: denies: cough, congestion, shortness of breath, exercise intolerance Cardiovascular: denies: chest pain, palpitation, edema, paroxysmal nocturnal dyspnea, orthopnea Gastrointestinal: denies: nausea, vomiting, diarrhea, constipation, abd pain, GI bleeding Musculoskeletal: denies: pain, tenderness, stiffness, swelling, arthritis/ arthralgias Neurological: denies: numbness, syncope, seizure, weakness - Objective Allergies/Adverse Reactions: Allergies Allergy/AdvReac Type Severity Reaction Status Date / Time No Allergy Information Allergy Verified 09/07/19 01:46 Available Visit Medications: Current Medications Acetaminophen (Tylenol) 650 mg PO Q6H PRN PRN Reason: Headache/Fever or Pain Last Admin: 09/13/19 08:37 Dose: 650 mg Albuterol/Ipratropium (Duoneb) 3 ml NEB [id number] Last Admin: 09/15/19 13:52 Dose: 3 ml Amlodipine Besylate (Norvasc) 2.5 mg PO DAILY [facility] Last Admin: 09/15/19 08:38 Dose: 2.5 mg Artificial Tears (Tears Naturale) 0 drop EA EYE Q1H PRN PRN Reason: DRY EYES Carvedilol (Coreg) 25 mg PO BID [facility] Last Admin: 09/15/19 08:39 Dose: 25 mg Cefdinir (Omnicef) 300 mg PO BID [facility] Last Admin: 09/15/19 08:37 Dose: 300 mg Dextrose/Water (Dextrose 50%) 25 gm SLOW IVP PRN PRN PRN Reason: Hypoglycemia Last Admin: 09/07/19 21:10 Dose: 25 gm Famotidine (Pepcid) 20 mg PO DAILY [facility] Last Admin: 09/15/19 08:38 Dose: 20 mg Furosemide (Lasix) 40 mg PO 0900,1700 [facility] Last Admin: 09/15/19 17:13 Dose: 40 mg Gabapentin (Neurontin) 300 mg PO BID [facility] Glucagon (Glucagon) 1 mg IM PRN PRN PRN Reason: Hypoglycemia Dextrose/Water (D5w) 1,000 mls @ 0 mls/hr IV .Q0M PRN PRN Reason: Hypoglycemia Potassium Chloride 40 meq/ (Sodium Chloride) 270 mls @ 135 mls/hr IVPB ASDIR PRN PRN Reason: FOR SERUM K+ 2.5 - 3.5 Potassium Chloride 40 meq/ (Device) 100 mls @ 50 mls/hr IVPB ASDIR PRN PRN Reason: FOR SERUM K+ 2.5 - 3.5 Magnesium Sulfate 1 gm/ Sodium (Chloride) 102 mls @ 102 mls/hr IV PRN PRN PRN Reason: MAG LEVEL 1.4 - 2.0 Magnesium Sulfate 2 gm/ Device 50 mls @ 50 mls/hr IVPB ASDIR PRN PRN Reason: MAGNESIUM < 1.4 Potassium Phosphate 9 mmol/ (Sodium Chloride) 103 mls @ 25.75 mls/hr IVPB ASDIR PRN PRN Reason: Phosphate 1.0-1.8 Potassium Phosphate 12 mmol/ (Sodium Chloride) 254 mls @ 63.5 mls/hr IV ASDIR PRN PRN Reason: Serum phosphate 0.5-0.9 Potassium Phosphate 15 mmol/ (Sodium Chloride) 255 mls @ 63.75 mls/hr IV ASDIR PRN PRN Reason: Serum Phos < 0.5 Insulin Human Lispro (Humalog) 0 units SC .MODERATE SLIDING SC PRN PRN Reason: Moderate Correctional Scale Last Admin: 09/15/19 12:03 Dose: 2 unit Insulin Human Lispro (Humalog) 0 units SC .BEDTIME SLIDING SC PRN PRN Reason: Bedtime Correctional Scale Lorazepam (Ativan) 1 mg SLOW IVP Q6H PRN PRN Reason: Agitation Magnesium Oxide (Magnesium Oxide) 400 mg PO BIDPRN PRN PRN Reason: FOR SERUM MAG 1.4 - 2.0 Magnesium Oxide (Magnesium Oxide) 800 mg PO PRN PRN PRN Reason: FOR SERUM MAG < 1.4 Magnesium Oxide (Magnesium Oxide) 400 mg PO BID [facility] Last Admin: 09/15/19 08:37 Dose: 400 mg Miscellaneous Medication (Phos-Nak) 1 pkt PO TIDPRN PRN PRN Reason: FOR PHOS LEVEL 1.0 - 1.8 Miscellaneous Medication (Phos-Nak) 2 pkt PO TIDPRN PRN PRN Reason: FOR PHOS LEVEL 0.5 - 1.0 Morphine Sulfate (Morphine) 2 mg SLOW IVP Q1H PRN PRN Reason: BREAKTHROUGH PAIN/Agitation Stop: 10/07/19 01:11 Ondansetron HCl (Zofran Odt) 4 mg PO Q6H PRN PRN Reason: Nausea/Vomiting Ondansetron HCl (Zofran) 4 mg IVP Q6H PRN PRN Reason: Nausea/Vomiting Potassium Chloride (K-Dur) 40 meq PO ASDIR PRN PRN Reason: FOR SERUM K+ 2.5 - 3.5 Potassium Chloride (Klor-Con) 40 meq PER TUBE ASDIR PRN PRN Reason: FOR SERUM K+ 2.5-3.5 Sodium Chloride (Flush - Normal Saline) 10 ml IVF Q12HR [facility] Last Admin: 09/15/19 08:40 Dose: 10 ml Sodium Chloride (Flush - Normal Saline) 10 ml IVF PRN PRN PRN Reason: Saline Flush Tramadol HCl (Ultram) 50 mg PO Q6H PRN PRN Reason: Breakthrough Pain Last Admin: 09/15/19 08:39 Dose: 50 mg Warfarin Sodium (Coumadin) 2 mg PO 1700 [facility] Last Admin: 09/15/19 17:13 Dose: 2 mg Vital Signs & Weight: Vital Signs Temp Pulse Pulse Pulse Resp BP BP 09/15/19 15:27 97.7 F 88 18 09/15/19 11:33 97.3 F L 87 16 09/15/19 11:00 87 84 139/71 136/69 09/15/19 08:38 89 09/15/19 07:45 98.6 F 89 12 BP Pulse Ox 09/15/19 15:27 120/64 99 09/15/19 11:33 130/74 99 09/15/19 11:00 09/15/19 08:38 09/15/19 07:45 130/70 100 Admit Weight 279 lb 5.211 oz Weight 232 lb 3.2 oz - Physical Exam General: no apparent distress HEENT: mucus membranes moist Neck: supple neck, midline trachea Cardiac: regular rate and rhythm, no murmur Lungs: clear to auscultation Neuro: no lateralizing findings Abdomen: active bowel sounds, soft, non-tender Extremities: no edema Skin: clear Musculoskeletal: no pain - Labs Result Diagrams: 09/14/19 08:26 09/15/19 04:03 Troponin/CKMB CK-MB (CK-2) 15.3 ng/mL (0-6.6) H* 09/07/19 20:25 Troponin I 0.117 ng/mL (< 0.028) H 09/07/19 20:25 - Telemetry Sinus rhythms and dysrhythmias: sinus rhythm - Assessment/Plan Assessment/Plan: 1. S/P cardiac arrets, etiology unknown 2. Anoxic brain injury 3. Extensive DVT Left LE/Possible PE 4. Acute on chronic renal insufficiency 5. Normal LV function. PLAN: - Full anticoagulation with warfarin, INR therapeutic. - Continue other meds. - Placement
--- NOTE | 2019-09-15 18:46 | PRG ---
DATE OF SERVICE: 09/15/2019 SERVICE: Pulmonary Medicine. INTERVAL HISTORY: The patient is doing great from respiratory standpoint. He has been weaned down to 1 L nasal cannula. His oxygen saturations are being maintained quite well. He has a little bit of a cough and brings up some yellow phlegm. Otherwise, there has been no interval change to his condition. He is moving in the right direction. PHYSICAL EXAMINATION: VITAL SIGNS: Afebrile, pulse 88, blood pressure 120/64, respirations 18, and saturation 99% on 2 L nasal cannula. GENERAL: The patient is awake and alert, in no apparent distress. LUNGS: Dependent crackles are noted. There is no prolonged expiratory phase. There is good air entry. No wheezing or rhonchi. HEART: Normal rate. Regular. ABDOMEN: Soft, nontender, and nondistended. Bowel sounds are positive. MUSCULOSKELETAL: No cyanosis or clubbing. Trace 1+ pitting is present. NEUROLOGIC: Grossly nonfocal. LABORATORY DATA: Hemoglobin 8.9. CBC is otherwise unremarkable. Creatinine 2.06, which is at his baseline. Phosphorus is unremarkable. Albumin 3.6. Urine drug screen is unremarkable. Urine culture is growing E. coli, which is roughly pansensitive organism. Blood culture has contaminant in 1/. Influenza A and B are negative. ASSESSMENT: 1. Acute on chronic hypoxic respiratory failure. 2. Acute on chronic diastolic heart failure. 3. Acute kidney injury on chronic kidney disease 3. 4. Deep venous thrombosis. 5. Status post cardiac arrest with return of circulation and fairly well preserved neurologic function. DISCUSSION AND PLAN: We will continue to diurese the patient until he returns to euvolemia. From a purely respiratory perspective, he is stable for transition out of the hospital. Antibiotics will be continued directing at this urinary tract infection. Pulmonary/Critical Care will follow intermittently during this hospital stay. If he gets into trouble over the weekend, give me a phone call, but otherwise Dr. Mendez will assume coverage on Tuesday. Job ID: [id number]
[2019-09-15] MEDS: Gabapentin 300 MG CAP PO SCH (20:40)
[2019-09-16] MEDS: Acetaminophen 325 MG TAB PO PRN (02:35)
[2019-09-16 06:47] LABS: INR-International Normal Ratio 1.9; Prothrombin Time 22.1 SEC (12.0-14.7)
[2019-09-16 07:01] LABS: Albumin 3.7 g/dL (3.5-5.0); Anion Gap 15 mmol/L (10-20); BUN (Urea Nitrogen) 26 mg/dL (8.4-25.7); BUN/Creatinine Ratio 10.57; Calc. Creatinine Clearance 45 mL/min (70-130); Calcium 9.6 mg/dL (7.8-10.44); Carbon Dioxide 32 mmol/L (22-29); Chloride 96 mmol/L (98-107); Estimated GFR-MDRD 33; Glucose 141 mg/dL (70-105); Phosphorus 4.4 mg/dL (2.3-4.7); Potassium 5.1 mmol/L (3.5-5.1); Sodium 138 mmol/L (136-145)
[2019-09-16] MEDS: Amlodipine 5 MG TAB PO SCH (09:39)
[2019-09-16] MEDS: Gabapentin 300 MG CAP PO SCH ×2 (09:39→21:01)
[2019-09-16] MEDS: Carvedilol 25 MG TAB PO SCH ×2 (09:39→21:01)
[2019-09-16] MEDS: Famotidine 20 MG TAB PO SCH (09:39)
[2019-09-16] MEDS: Magnesium Oxide 400 MG TAB PO SCH ×2 (09:39→21:01)
[2019-09-16] MEDS: Cefdinir 300 MG CAP PO SCH ×2 (09:39→21:01)
--- NOTE | 2019-09-16 12:28 | PDOC.HOSPP ---
- Subjective Subjective: Seen and examined. Sleeping well this a.m. Breathing more comfortably, not requiring oxygen this a.m. Recommended patient continue working on his physical strength. All questions answered in detail. - Objective Vital Signs & Weight: Vital Signs (12 hours) Temp Pulse Resp BP Pulse Ox 09/16/19 12:00 98.3 F 89 16 117/64 97 09/16/19 09:39 85 09/16/19 07:25 97.7 F 92 16 137/70 94 L 09/16/19 07:09 85 14 90 L 09/16/19 06:05 95 09/16/19 03:19 98.2 F 91 16 119/61 90 L Weight Admit Weight 279 lb 5.211 oz Weight 221 lb 11.2 oz Most Recent Monitor Data Heart Rate from ECG 92 NIBP 164/88 NIBP BP-Mean 113 Respiration from ECG 18 SpO2 100 I&O: 09/15/19 09/16/19 09/17/19 06:59 06:59 06:59 Intake Total 1640 1200 Output Total 250 Balance 1640 950 Result Diagrams: 09/14/19 08:26 09/16/19 06:06 Additional Labs: Accuchecks 09/16/19 09/15/19 09/15/19 05:37 20:37 16:56 POC Glucose 136 H 122 H 118 H Hospitalist ROS - Review of Systems All other systems reviewed; all pertinent +/- noted in HPI/Subj - Medication Medications: Active Medications Generic Name Dose Route Start Last Admin Trade Name Freq PRN Reason Stop Dose Admin Acetaminophen 650 mg 09/11/19 23:04 09/16/19 02:35 Tylenol PO 650 mg Q6H PRN Administration Headache/Fever or Pain Albuterol/Ipratropium 3 ml 09/14/19 13:00 09/16/19 07:09 Duoneb NEB 3 ml [id number] [facility] Administration Amlodipine Besylate 2.5 mg 09/15/19 09:00 09/16/19 09:39 Norvasc PO 2.5 mg DAILY [facility] Administration Carvedilol 25 mg 09/11/19 21:00 09/16/19 09:39 Coreg PO 25 mg BID [facility] Administration Cefdinir 300 mg 09/12/19 21:00 09/16/19 09:39 Omnicef PO 300 mg BID [facility] Administration Dextrose/Water 25 gm 09/07/19 01:06 09/07/19 21:10 Dextrose 50% SLOW IVP 25 gm PRN PRN Administration Hypoglycemia Famotidine 20 mg 09/14/19 09:00 09/16/19 09:39 Pepcid PO 20 mg DAILY [facility] Administration Gabapentin 300 mg 09/15/19 21:00 09/16/19 09:39 Neurontin PO 300 mg BID [facility] Administration Insulin Human Lispro 0 units 09/07/19 01:06 09/15/19 12:03 Humalog SC 2 unit .MODERATE SLIDING SC PRN Administration Moderate Correctional Scale Magnesium Oxide 400 mg 09/12/19 09:00 09/16/19 09:39 Magnesium Oxide PO 400 mg BID [facility] Administration Sodium Chloride 10 ml 09/07/19 09:00 09/15/19 20:40 Flush - Normal Saline IVF 10 ml Q12HR [facility] Administration Tramadol HCl 50 mg 09/12/19 09:04 09/15/19 08:39 Ultram PO 50 mg Q6H PRN Administration Breakthrough Pain Warfarin Sodium 2 mg 09/15/19 17:00 09/15/19 17:13 Coumadin PO 2 mg 1700 [facility] Administration - Exam General Appearance: NAD ENT: normocephalic atraumatic, moist mucosa Neck: supple, symmetric, no lymphadenopathy Heart: no murmur, no gallops, no rubs Respiratory: CTAB, no wheezes, no rales, no ronchi, normal chest expansion, no tachypnea Gastrointestinal: soft, non-tender, non-distended, no guarding, no rigidity Extremities: 1+ LE edema Skin: no lesions, no rashes Neurological: cranial nerve grossly intact, no focal deficits Musculoskeletal: generalized weakness Psychiatric: A&O x 3, flat affect Hosp A/P (1) Acute kidney injury superimposed on CKD Code(s): N17.9 - ACUTE KIDNEY FAILURE, UNSPECIFIED; N18.9 - CHRONIC KIDNEY DISEASE, UNSPECIFIED Status: Acute (2) Acute on chronic diastolic (congestive) heart failure Code(s): I50.33 - ACUTE ON CHRONIC DIASTOLIC (CONGESTIVE) HEART FAILURE Status : Acute (3) Atrial fibrillation Code(s): I48.91 - UNSPECIFIED ATRIAL FIBRILLATION Status: Chronic (4) Cardiac arrest Code(s): I46.9 - CARDIAC ARREST, CAUSE UNSPECIFIED Status: Resolved (5) Diabetes Code(s): E11.9 - TYPE 2 DIABETES MELLITUS WITHOUT COMPLICATIONS Status: Chronic Qualifiers: Diabetes mellitus type: type 2 Diabetes mellitus penitentiary insulin use: with terminal gauger use Diabetes mellitus complication status: with kidney complications Diabetes mellitus complication detail: with chronic kidney disease Chronic kidney disease stage: stage 3 (moderate) Qualified Code(s): E11.22 - Type 2 diabetes mellitus with diabetic chronic kidney disease; N18.3 - Chronic kidney disease, stage 3 (moderate); Z79.4 - penitentiary (current) use of insulin (6) Encephalopathy acute Code(s): G93.40 - ENCEPHALOPATHY, UNSPECIFIED Status: Resolved (7) Pulmonary edema Code(s): J81.1 - CHRONIC PULMONARY EDEMA Status: Resolved (8) Positive blood culture Code(s): R78.81 - BACTEREMIA Status: Resolved (9) UTI (urinary tract infection) Status: Resolved Qualifiers: Urinary tract infection type: site unspecified Hematuria presence: without hematuria Qualified Code(s): N39.0 - Urinary tract infection, site not specified - Plan Plan: medical unit with telemetry pulmonology/critical-care consultation, recommendations appreciated nephrology consultation, recommendations appreciated continue oral antibiotics monitor for fluid overload in the setting of diastolic congestive heart failure Coumadin for atrial fibrillation/ DVT, dosing per pharmacy Venogram with extensive Left leg DVT Gabapentin for nerve pain blood pressure control blood sugar control patient has improved on maximal medical therapy will need subacute placement
--- NOTE | 2019-09-16 12:57 | PRG ---
DATE OF SERVICE: 09/16/2019 SERVICE: Nephrology. SUBJECTIVE: A 58-year-old male admitted after cardiac arrest. Nephrology is following the patient for NATHANIEL on CKD. No new problem. The patient is intermittently off oxygen at present. Complains of generalized weakness. OBJECTIVE: VITAL SIGNS: Temperature 98.2, pulse 85, respiratory rate 14, SpO2 of 95% on 2 L nasal cannula, blood pressure is 119/61. GENERAL: Obese male, in no obvious distress. Fatigued. Afebrile and anicteric. HEENT: Normocephalic, atraumatic. NECK: No JVD appreciated. CARDIOVASCULAR: Regular rhythm and rate with normal heart sounds 1 and 2. Soft systolic murmur noted. RESPIRATORY: Fair air entry bilaterally with few bibasilar crackles posteriorly. GI: Abdomen is obese, soft, nontender, nondistended with normal bowel sounds. EXTREMITIES: Trace to mild left lower extremity edema. Other extremities are without edema. STRIP FEEDER: Conscious, alert, oriented x3. Slow mentation and some memory lapse are noted. DIAGNOSTIC DATA: CBC showed WBC count of 1. Renal function panel showed sodium 138, potassium 5.1, chloride 96, CO2 of 32, BUN 26, creatinine 2.46, glucose 141, calcium 9.6, phosphorus 4.4, albumin 3.7. Of note, creatinine went up from 2.06 yesterday. ASSESSMENT: 1. Acute kidney injury due to hemodynamic factors related to cardiac decompensation and diuretic therapy. 2. Chronic kidney disease stage 3, most likely related to hypertension and diabetes. 3. Proteinuria with UPC of 500 mg/g of creatinine. 4. Hypertension, control is acceptable. 5. Anoxic brain injury. 6. Hypokalemia related to diuretic therapy, resolved. 7. Volume overload, markedly improved. 8. Left lower extremity deep vein thrombosis, on anticoagulation. 9. Hyponatremia, resolved. 10. Anemia of chronic kidney disease. PLAN: 1. We will discontinue diuretics for now. We will recheck renal function tomorrow. 2. We will continue Procrit on Tuesday, Tuesday, and Tuesday. 3. Other treatment as per primary attending and other specialties. Job ID: [id number]
[2019-09-16] MEDS: Warfarin Sodium 2 MG TAB PO SCH (17:30)
[2019-09-16] MEDS: HumaLOG 300 UNITS/3 ML VIAL SC PRN (17:30)
--- NOTE | 2019-09-16 17:53 | PDOC.CPN ---
- Subjective Date: 09/16/19 Time: 17:51 Interval history: No new issues. - Review of Systems General: denies: fever/chills, weight/appetite/sleep changes, night sweats, fatigue Respiratory: denies: cough, congestion, shortness of breath, exercise intolerance Cardiovascular: denies: chest pain, palpitation, edema, paroxysmal nocturnal dyspnea, orthopnea Gastrointestinal: denies: nausea, vomiting, diarrhea, constipation, abd pain, GI bleeding Musculoskeletal: denies: pain, tenderness, stiffness, swelling, arthritis/ arthralgias Neurological: denies: numbness, syncope, seizure, weakness - Objective Allergies/Adverse Reactions: Allergies Allergy/AdvReac Type Severity Reaction Status Date / Time No Allergy Information Allergy Verified 09/07/19 01:46 Available Visit Medications: Current Medications Acetaminophen (Tylenol) 650 mg PO Q6H PRN PRN Reason: Headache/Fever or Pain Last Admin: 09/16/19 02:35 Dose: 650 mg Albuterol/Ipratropium (Duoneb) 3 ml NEB [id number] [facility] Last Admin: 09/16/19 13:10 Dose: Not Given Amlodipine Besylate (Norvasc) 2.5 mg PO DAILY [facility] Last Admin: 09/16/19 09:39 Dose: 2.5 mg Artificial Tears (Tears Naturale) 0 drop EA EYE Q1H PRN PRN Reason: DRY EYES Carvedilol (Coreg) 25 mg PO BID [facility] Last Admin: 09/16/19 09:39 Dose: 25 mg Cefdinir (Omnicef) 300 mg PO BID [facility] Last Admin: 09/16/19 09:39 Dose: 300 mg Dextrose/Water (Dextrose 50%) 25 gm SLOW IVP PRN PRN PRN Reason: Hypoglycemia Last Admin: 09/07/19 21:10 Dose: 25 gm Famotidine (Pepcid) 20 mg PO DAILY [facility] Last Admin: 09/16/19 09:39 Dose: 20 mg Gabapentin (Neurontin) 300 mg PO BID [facility] Last Admin: 09/16/19 09:39 Dose: 300 mg Glucagon (Glucagon) 1 mg IM PRN PRN PRN Reason: Hypoglycemia Dextrose/Water (D5w) 1,000 mls @ 0 mls/hr IV .Q0M PRN PRN Reason: Hypoglycemia Potassium Chloride 40 meq/ (Sodium Chloride) 270 mls @ 135 mls/hr IVPB ASDIR PRN PRN Reason: FOR SERUM K+ 2.5 - 3.5 Potassium Chloride 40 meq/ (Device) 100 mls @ 50 mls/hr IVPB ASDIR PRN PRN Reason: FOR SERUM K+ 2.5 - 3.5 Magnesium Sulfate 1 gm/ Sodium (Chloride) 102 mls @ 102 mls/hr IV PRN PRN PRN Reason: MAG LEVEL 1.4 - 2.0 Magnesium Sulfate 2 gm/ Device 50 mls @ 50 mls/hr IVPB ASDIR PRN PRN Reason: MAGNESIUM < 1.4 Potassium Phosphate 9 mmol/ (Sodium Chloride) 103 mls @ 25.75 mls/hr IVPB ASDIR PRN PRN Reason: Phosphate 1.0-1.8 Potassium Phosphate 12 mmol/ (Sodium Chloride) 254 mls @ 63.5 mls/hr IV ASDIR PRN PRN Reason: Serum phosphate 0.5-0.9 Potassium Phosphate 15 mmol/ (Sodium Chloride) 255 mls @ 63.75 mls/hr IV ASDIR PRN PRN Reason: Serum Phos < 0.5 Insulin Human Lispro (Humalog) 0 units SC .MODERATE SLIDING SC PRN PRN Reason: Moderate Correctional Scale Last Admin: 09/16/19 17:30 Dose: 2 unit Insulin Human Lispro (Humalog) 0 units SC .BEDTIME SLIDING SC PRN PRN Reason: Bedtime Correctional Scale Lorazepam (Ativan) 1 mg SLOW IVP Q6H PRN PRN Reason: Agitation Magnesium Oxide (Magnesium Oxide) 400 mg PO BIDPRN PRN PRN Reason: FOR SERUM MAG 1.4 - 2.0 Magnesium Oxide (Magnesium Oxide) 800 mg PO PRN PRN PRN Reason: FOR SERUM MAG < 1.4 Magnesium Oxide (Magnesium Oxide) 400 mg PO BID [facility] Last Admin: 09/16/19 09:39 Dose: 400 mg Miscellaneous Medication (Phos-Nak) 1 pkt PO TIDPRN PRN PRN Reason: FOR PHOS LEVEL 1.0 - 1.8 Miscellaneous Medication (Phos-Nak) 2 pkt PO TIDPRN PRN PRN Reason: FOR PHOS LEVEL 0.5 - 1.0 Morphine Sulfate (Morphine) 2 mg SLOW IVP Q1H PRN PRN Reason: BREAKTHROUGH PAIN/Agitation Stop: 10/07/19 01:11 Ondansetron HCl (Zofran Odt) 4 mg PO Q6H PRN PRN Reason: Nausea/Vomiting Ondansetron HCl (Zofran) 4 mg IVP Q6H PRN PRN Reason: Nausea/Vomiting Potassium Chloride (K-Dur) 40 meq PO ASDIR PRN PRN Reason: FOR SERUM K+ 2.5 - 3.5 Potassium Chloride (Klor-Con) 40 meq PER TUBE ASDIR PRN PRN Reason: FOR SERUM K+ 2.5-3.5 Sodium Chloride (Flush - Normal Saline) 10 ml IVF Q12HR [facility] Last Admin: 09/16/19 17:30 Dose: 10 ml Sodium Chloride (Flush - Normal Saline) 10 ml IVF PRN PRN PRN Reason: Saline Flush Tramadol HCl (Ultram) 50 mg PO Q6H PRN PRN Reason: Breakthrough Pain Last Admin: 09/15/19 08:39 Dose: 50 mg Warfarin Sodium (Coumadin) 2 mg PO 1700 [facility] Last Admin: 09/16/19 17:30 Dose: 2 mg Vital Signs & Weight: Vital Signs Temp Pulse Pulse Pulse Resp BP BP 09/16/19 17:30 09/16/19 15:45 97.8 F 89 16 09/16/19 14:27 92 92 104/58 L 118/57 L 09/16/19 12:00 98.3 F 89 16 09/16/19 09:39 85 09/16/19 07:25 97.7 F 92 16 09/16/19 07:09 85 14 09/16/19 06:05 BP Pulse Ox 09/16/19 17:30 94 L 09/16/19 15:45 122/64 90 L 09/16/19 14:27 09/16/19 12:00 117/64 97 09/16/19 09:39 09/16/19 07:25 137/70 94 L 09/16/19 07:09 90 L 09/16/19 06:05 95 Admit Weight 279 lb 5.211 oz Weight 221 lb 11.2 oz - Physical Exam General: no apparent distress HEENT: mucus membranes moist Neck: supple neck Cardiac: regular rate and rhythm Lungs: clear to auscultation Neuro: grossly intact Abdomen: active bowel sounds Extremities: no edema Skin: clear Musculoskeletal: no pain - Labs Result Diagrams: 09/14/19 08:26 09/16/19 06:06 Troponin/CKMB CK-MB (CK-2) 15.3 ng/mL (0-6.6) H* 09/07/19 20:25 Troponin I 0.117 ng/mL (< 0.028) H 09/07/19 20:25 - Telemetry Sinus rhythms and dysrhythmias: sinus rhythm - Assessment/Plan Assessment/Plan: 1. S/P cardiac arrets, etiology unknown 2. Anoxic brain injury 3. Extensive DVT Left LE/Possible PE 4. Acute on chronic renal insufficiency 5. Normal LV function. PLAN: - Full anticoagulation with warfarin, INR therapeutic. - Continue other meds. - Placement - Dr. Tolbert will follow tomorrow.
[2019-09-17 05:04] LABS: Hemoglobin 8.6 g/dL (14.0-18.0); Mean Corpuscular HGB CONC 32.1 g/dL (32.0-36.0); Mean Corpuscular Hemoglobin 29.3 pg (27.0-31.0); Mean Corpuscular Volume 91.4 fL (78.0-98.0); Mean Platelet Volume 7.7 fL (7.4-10.4); Platelet Count 300 thou/uL (130-400); RBC Distribution Width 12.6 % (11.5-14.5); Red Blood Cell (RBC) Count 2.93 mill/uL (4.70-6.10)
[2019-09-17 05:08] LABS: INR-International Normal Ratio 1.5; Prothrombin Time 18.4 SEC (12.0-14.7)
[2019-09-17 05:25] LABS: Albumin 3.7 g/dL (3.5-5.0); Anion Gap 15 mmol/L (10-20); BUN (Urea Nitrogen) 36 mg/dL (8.4-25.7); BUN/Creatinine Ratio 11.61; Calc. Creatinine Clearance 36 mL/min (70-130); Calcium 9.6 mg/dL (7.8-10.44); Carbon Dioxide 31 mmol/L (22-29); Chloride 97 mmol/L (98-107); Estimated GFR-MDRD 25; Glucose 115 mg/dL (70-105); Magnesium 2.3 mg/dL (1.6-2.6); Phosphorus 4.4 mg/dL (2.3-4.7); Potassium 5.1 mmol/L (3.5-5.1); Sodium 138 mmol/L (136-145)
[2019-09-17] MEDS: Amlodipine 5 MG TAB PO SCH (09:14)
[2019-09-17] MEDS: Cefdinir 300 MG CAP PO SCH ×2 (09:15→20:12)
[2019-09-17] MEDS: Famotidine 20 MG TAB PO SCH (09:15)
[2019-09-17] MEDS: Carvedilol 25 MG TAB PO SCH ×2 (09:15→20:11)
[2019-09-17] MEDS ORDERED: Warfarin Sodium 5 MG TAB PO SCH (10:30)
--- NOTE | 2019-09-17 10:48 | PRG ---
DATE OF SERVICE: 09/17/2019 SUBJECTIVE: Quentin Del Real appears to be less encephalopathic. OBJECTIVE: VITAL SIGNS: Temperature 98, pulse 92, respirations 16, saturations _96% room air, and blood pressure 130/64. CHEST: No wheezing. CARDIAC: Normal S1 and S2. No gallops. ABDOMEN: No mass. LABORATORY DATA: Creatinine 3.10. IMPRESSION: Status post cardiopulmonary arrest, respiratory failure, encephalopathy, azotemia, and severe deconditioning. PLAN: Eventually placement. PT, supportive care. Job ID: [id number] MTDD
[2019-09-17] MEDS: HumaLOG 300 UNITS/3 ML VIAL SC PRN (11:31)
--- NOTE | 2019-09-17 12:04 | PRG ---
DATE OF SERVICE: 09/17/2019 SERVICE: Nephrology. SUBJECTIVE: A 58-year-old male admitted due to cardiac arrest. Nephrology is following for acute on chronic renal failure. The patient was treated with diuretics for anasarca with improvement in creatinine from peak of above 3 to 2.06. Creatinine, however, started trending up yesterday morning. Creatinine today is 3.1. Of note, the patient was started on Neurontin on September 15. OBJECTIVE: VITAL SIGNS: Temperature 98.3, pulse 92, respiratory rate 16, SpO2 of 93% on room air, blood pressure is 133/66. GENERAL: Male patient, in no obvious distress. Afebrile. Anicteric. Acyanotic. HEENT: Normocephalic, atraumatic. Oral mucosa is moist. CARDIOVASCULAR: Regular rhythm and rate with normal heart sounds one and two. RESPIRATORY: A few left base crackle posteriorly noted. Otherwise, clear to auscultation. GI: Obese, soft, nontender, nondistended with normal bowel sounds. EXTREMITIES: Trace to mild left lower extremity edema. Otherwise, no edema in all the other extremities. PROTOTYPE ENGINEER MANAGER: Conscious and alert, oriented x3. Slow mentation. Some memory lapses noted. DIAGNOSTIC DATA: Renal function panel showed sodium 133, potassium 5.1, chloride 97, CO2 of 31, BUN 36, creatinine 3.1, glucose 115, calcium 9.6, phosphorus 4.4, magnesium 2.3, albumin 3.7. CK is 142. ASSESSMENT: 1. Acute kidney injury: The patient had recent acute kidney injury on chronic kidney disease 3, which has improved. This initially was felt to be cardiorenal and it improved with diuretics. Creatinine started trending up following commencement of Neurontin. Neurontin induced nephrotoxicity seems most likely. That has been discontinued at this time. We will also get urinalysis as well as CPK and urine electrolytes. IV fluid is contemplated, but the patient is not volume depleted clinically. 2. Hypertension: Control is acceptable. 3. Chronic kidney disease stage 3, at baseline. This was felt to be due to diabetes and hypertension. 4. Acute on chronic diastolic heart failure associated with anasarca. Improved. 5. Volume overload: Improved with diuretics. Diuretics are held at this time due to acute kidney injury. The patient also is euvolemic clinically. 6. Further treatment to follow depending on review of other diagnostic tests. Job ID: [id number]
--- NOTE | 2019-09-17 13:50 | PDOC.HOSPP ---
- Subjective Subjective: Seen and examined. Clinically continues to improve. Off oxygen this a.m. Patient 's renal function has trended up, nephrotoxic medications have been discontinued , nephrology following on case. Patient with uncontrolled insulin-dependent diabetes mellitus and chronic kidney disease at baseline is at elevated risk for renal insufficiency. - Objective Vital Signs & Weight: Vital Signs (12 hours) Temp Pulse Pulse Pulse Resp BP BP 09/17/19 11:40 97.6 F 86 16 09/17/19 11:02 91 86 110/66 114/55 L 09/17/19 09:14 92 09/17/19 07:32 98.3 F 92 16 09/17/19 03:30 98.2 F 91 18 BP Pulse Ox 09/17/19 11:40 125/61 95 09/17/19 11:02 09/17/19 09:14 09/17/19 07:32 133/66 93 L 09/17/19 03:30 123/63 95 Weight Admit Weight 279 lb 5.211 oz Weight 224 lb 5 oz Most Recent Monitor Data Heart Rate from ECG 92 NIBP 164/88 NIBP BP-Mean 113 Respiration from ECG 18 SpO2 100 I&O: 09/16/19 09/17/19 09/18/19 06:59 06:59 06:59 Intake Total 1200 960 Output Total 250 150 Balance 950 810 Result Diagrams: 09/17/19 04:32 09/17/19 04:32 Additional Labs: Accuchecks 09/17/19 09/17/19 09/16/19 10:44 05:13 20:06 POC Glucose 196 H 124 H 139 H 09/16/19 16:36 POC Glucose 163 H Radiology Reviewed by me: Yes Hospitalist ROS - Review of Systems All other systems reviewed; all pertinent +/- noted in HPI/Subj - Medication Medications: Active Medications Generic Name Dose Route Start Last Admin Trade Name Freq PRN Reason Stop Dose Admin Acetaminophen 650 mg 09/11/19 23:04 09/16/19 02:35 Tylenol PO 650 mg Q6H PRN Administration Headache/Fever or Pain Albuterol/Ipratropium 3 ml 09/14/19 13:00 09/17/19 13:31 Duoneb NEB Not Given [id number] LEEANN Amlodipine Besylate 2.5 mg 09/15/19 09:00 09/17/19 09:14 Norvasc PO 2.5 mg DAILY LEEANN Administration Carvedilol 25 mg 09/11/19 21:00 09/17/19 09:15 Coreg PO 25 mg BID LEEANN Administration Cefdinir 300 mg 09/12/19 21:00 09/17/19 09:15 Omnicef PO 300 mg BID LEEANN Administration Dextrose/Water 25 gm 09/07/19 01:06 09/07/19 21:10 Dextrose 50% SLOW IVP 25 gm PRN PRN Administration Hypoglycemia Famotidine 20 mg 09/14/19 09:00 09/17/19 09:15 Pepcid PO 20 mg DAILY LEEANN Administration Insulin Human Lispro 0 units 09/07/19 01:06 09/17/19 11:31 Humalog SC 2 unit .MODERATE SLIDING SC PRN Administration Moderate Correctional Scale Sodium Chloride 10 ml 09/07/19 09:00 09/17/19 09:15 Flush - Normal Saline IVF 10 ml Q12HR LEEANN Administration - Exam General Appearance: NAD Eye: PERRL, anicteric sclera ENT: normocephalic atraumatic, moist mucosa Neck: supple, no lymphadenopathy Heart: no murmur, no gallops, no rubs Respiratory: CTAB, no wheezes, no rales, no ronchi, normal chest expansion Gastrointestinal: soft, non-tender, non-distended, normal bowel sounds, no guarding, no rigidity Extremities: 1+ LE edema Skin: no lesions, no rashes Neurological: cranial nerve grossly intact, normal sensation to touch, no focal deficits Psychiatric: A&O x 3, flat affect Hosp A/P (1) Acute kidney injury superimposed on CKD Code(s): N17.9 - ACUTE KIDNEY FAILURE, UNSPECIFIED; N18.9 - CHRONIC KIDNEY DISEASE, UNSPECIFIED Status: Acute (2) Acute on chronic diastolic (congestive) heart failure Code(s): I50.33 - ACUTE ON CHRONIC DIASTOLIC (CONGESTIVE) HEART FAILURE Status : Acute (3) Atrial fibrillation Code(s): I48.91 - UNSPECIFIED ATRIAL FIBRILLATION Status: Chronic (4) Cardiac arrest Code(s): I46.9 - CARDIAC ARREST, CAUSE UNSPECIFIED Status: Resolved (5) Diabetes Code(s): E11.9 - TYPE 2 DIABETES MELLITUS WITHOUT COMPLICATIONS Status: Chronic Qualifiers: Diabetes mellitus type: type 2 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: with 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 use Diabetes mellitus complication status: with kidney complications Diabetes mellitus complication detail: with chronic kidney disease Chronic kidney disease stage: stage 3 (moderate) Qualified Code(s): E11.22 - Type 2 diabetes mellitus with diabetic chronic kidney disease; N18.3 - Chronic kidney disease, stage 3 (moderate); 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 (6) Encephalopathy acute Code(s): G93.40 - ENCEPHALOPATHY, UNSPECIFIED Status: Resolved (7) Pulmonary edema Code(s): J81.1 - CHRONIC PULMONARY EDEMA Status: Resolved (8) Positive blood culture Code(s): R78.81 - BACTEREMIA Status: Resolved (9) UTI (urinary tract infection) Status: Resolved Qualifiers: Urinary tract infection type: site unspecified Hematuria presence: without hematuria Qualified Code(s): N39.0 - Urinary tract infection, site not specified - Plan Plan: medical unit with telemetry, stable for Med/ surg pulmonology/critical-care consultation, recommendations appreciated nephrology consultation, recommendations appreciated continue oral antibiotics monitor for fluid overload in the setting of diastolic congestive heart failure Coumadin for atrial fibrillation/ DVT, dosing per pharmacy Venogram with extensive Left leg DVT Gabapentin for nerve pain, D/c secondary to renal insufficiency blood pressure control blood sugar control patient has improved on maximal medical therapy will need subacute placement
--- NOTE | 2019-09-17 15:47 | RAD ---
2 view chest: [09/17/2019] Comparion:09/14/2019 HISTORY: Shortness of breath, correlating with nuclear medicine imaging FINDINGS: Mild pulmonary vascular congestion. Mild enlargement of the cardiac silhouette. No pneumoth orax or pleural fluid. No focal consolidation or alveolar edema. IVC filter again noted. IMPRESSION: No focal consolidation or alveolar edema.
--- NOTE | 2019-09-17 16:22 | NM ---
NUCLEAR MEDICINE PULMONARY PERFUSION SCAN: (V/Q scan) DATE: 09/17/2019 HISTORY: 58-year-old male status post cardiac arrest. Possible pulmonary thromboembolism as a cause. TECHNIQUE: Technetium 99m-MAA dose: 6.5 mCi Patient was unable to inhale deep enough. Ventilation scan therefore not performed. Technetium 99m-MAA was injected IV, and multiple perfusion scintigraphic images were obtained. FINDINGS: There are no moderate sized or large perfusion defects. IMPRESSION: Low probability for pulmonary thromboembolism.
[2019-09-17] MEDS ORDERED: Warfarin Sodium 2 MG TAB PO SCH (17:00)
--- NOTE | 2019-09-17 23:15 | CON ---
DATE OF CONSULTATION: 09/17/2019 HISTORY OF PRESENT ILLNESS: I am seeing Mr. 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 His problems are; presentation with sudden cardiac arrest, which was not obviously provoked except for preceded by dyspnea and extreme tiredness for the last couple of days prior to admit. EMS found him pulseless and apneic and CPR was started. The rhythm was undetermined. Had bradycardia. CPR resumed and epinephrine was administered in the ER once he got there. Eventually got intubated and Levophed was started as well as epinephrine. Eventually stabilized. He was found to have acute kidney injury, supratherapeutic INR, and also evidence of deep venous thrombosis noted on the venogram. On the other hand, subsequent workup for pulmonary embolism with chest CT angio showed no segmental or central PE. An IVC filter was noted, a suprarenal IVC. Perfusion scan from today was negative. Echocardiogram was performed, did not reveal significant LV dysfunction and his cardiac enzymes just mildly increased. Venogram on the other hand from 2018, was positive for DVT, but again initial CT scan was negative for thrombus in the pulmonary arterial system and also perfusion scan performed today was negative for occlusive clot. Initial INR was 4.8, also on presentation, is down to 1.5. He was dyspneic prior to today's, but no obvious symptoms are noted of angina. He had no prior passing-out spells. No neurological deficits and rest of 12-point review of systems otherwise unremarkable. PAST MEDICAL HISTORY: Significant for diastolic heart failure, hypertension, history of deep venous thrombosis, type 2 diabetes, hyperlipidemia, prior history of IVC filter in the past. PAST SOCIAL HISTORY: The patient is a former smoker. Does drink beer on occasion. He is , has 2 children. FAMILY HISTORY: Significant for hypertension and diabetes. PHYSICAL EXAMINATION: VITAL SIGNS: Blood pressure is 116/56, heart rate 88, respiratory rate 16, temperature 97.4 degrees Fahrenheit. GENERAL: Alert and oriented man, in no apparent distress. NECK: Supple. Jugular veins not distended. CHEST: Coarse with crackles. HEART: Sounds are regular to rate and rhythm. No murmur or gallop. ABDOMEN: Benign. Bowel sounds positive. EXTREMITIES: Lower extremities without edema, clubbing, or cyanosis. Pulses are adequate. NEUROLOGICAL: The patient is nonfocal. MUSCULOSKELETAL: Without joint swelling or deformity. SKIN: Without rash. DATABASE: EKG is reviewed reveals narrow complex EKG, sinus rhythm, initially QTc is 482. Subsequent telemetry strips do reveal short runs of narrow complex SVT, likely PAT runs. No ventricular tachycardia noted. LABORATORY DATA: INR initially 4.8, currently 1.5. White count is 10, hemoglobin 8.6, platelet count is 300. Sodium 138, potassium 5.1, BUN is 36, creatinine is 3.1 currently, baseline creatinine was 2.14. ASSESSMENT AND PLAN: Mr. Ortega is a 58-year-old man with history of diastolic heart failure, preserved LVEF, hypertension, prior DVT with an IVC filter in place, diabetes. He presented with progressive dyspnea, cummulating a cardiac arrest. No definite arrhythmias were documented clearly in the chart, but he did require intubation for resuscitation, pressors initially. He has mild degree of anoxic encephalopathy. The reason for his cardiac arrest is not entirely clear. Nonetheless, ventricular arrhythmias cannot be completely ruled out. In view of his comorbidities, myocardial ischemia could be also a potential contributor. Discussed with Dr. Tolbert who is planning further ischemic evaluation. Providing we have no significant revascularizable targets found, he may benefit from long-term ICD therapy. Acute on chronic renal insufficiency, consider Nephrology evaluation. History of diastolic heart failure, currently stable. History of deep vein thrombosis without evidence of pulmonary embolism on perfusion scan and CT scan, will likely need chronic anticoagulation. Coumadin has been re-initiated. Diabetes, stable. Discussed with Dr. Tolbert. Thank you again for letting me to participate in the care of this patient. Job ID: [id number] [facility]
[2019-09-18 04:20] LABS: Bacteria/HPF None Seen HPF (None Seen); Bilirubin Negative (Negative); Blood, Urine Negative (Negative); Clarity Clear (Clear); Glucose, Urine (Dipstick) Normal (Negative); Leukocyte Negative Leu/uL (Negative); Nitrite Negative (Negative); Protein, Urine (Dipstick) 20 mg/dL (Neg-Trace); RBC/HPF 0-3 HPF (0-3); Squamous Epithelial 0-3 HPF (0-3); Urobilinogen Normal mg/dL (Less than 2); WBC/HPF 0-3 HPF (0-3)
[2019-09-18 04:36] LABS: Creatinine, Urine 262.17 mg/dL (63-166)
[2019-09-18 05:47] LABS: INR-International Normal Ratio 1.4; Prothrombin Time 17.3 SEC (12.0-14.7)
[2019-09-18 06:05] LABS: Albumin 3.8 g/dL (3.5-5.0); Anion Gap 13 mmol/L (10-20); BUN (Urea Nitrogen) 41 mg/dL (8.4-25.7); BUN/Creatinine Ratio 11.99; Calc. Creatinine Clearance 33 mL/min (70-130); Calcium 9.7 mg/dL (7.8-10.44); Carbon Dioxide 33 mmol/L (22-29); Chloride 97 mmol/L (98-107); Estimated GFR-MDRD 22; Glucose 137 mg/dL (70-105); Phosphorus 3.8 mg/dL (2.3-4.7); Potassium 5.1 mmol/L (3.5-5.1); Sodium 138 mmol/L (136-145)
[2019-09-18] MEDS ORDERED: Sodium Chloride 0.9% 1,000 ML IV SCH ×2 (08:15→16:58)
--- NOTE | 2019-09-18 09:20 | PRG ---
DATE OF SERVICE: 09/18/2019 SUBJECTIVE: He is actually doing very well. He has regained most of his memory. His is very happy with the outcome so far. OBJECTIVE: VITAL SIGNS: Temperature is 98.4, pulse 87, respirations 16, O2 saturation 93% on room air, and blood pressure 141/71. HEENT: Unremarkable. NECK: No adenopathy or JVD. CHEST: Clear to auscultation. CARDIAC: S1 and S2, regular. ABDOMEN: Soft. EXTREMITIES: No edema. LABORATORY DATA: White blood cell count 10, hematocrit 26.7, and platelet count 300. INR is 1.4. Sodium 138, potassium 5.1, chloride 97, CO2 of 33, BUN 41, creatinine 3.4, glucose 137. ASSESSMENT: 1. Status post [id number] cardiac arrest. 2. Deep venous thrombosis. 3. Acute renal insufficiency. 4. Deconditioning. 5. Perfusion scan showing low probability for pulmonary thromboembolism. PLAN: 1. He will need to be restarted on his Coumadin as soon as practical. 2. Undergoing further cardiac testing at this time. Job ID: [id number]
[2019-09-18] MEDS: Amlodipine 5 MG TAB PO SCH (10:23)
[2019-09-18] MEDS: Famotidine 20 MG TAB PO SCH (10:24)
[2019-09-18] MEDS: Carvedilol 25 MG TAB PO SCH ×2 (10:24→19:38)
[2019-09-18] MEDS: Cefdinir 300 MG CAP PO SCH ×2 (10:24→19:38)
[2019-09-18] MEDS: HumaLOG 300 UNITS/3 ML VIAL SC PRN ×2 (11:20→18:43)
--- NOTE | 2019-09-18 15:36 | PDOC.HOSPP ---
- Subjective Encounter Date: 09/18/19 Encounter Time: 09:00 Subjective: pt up in bed oriented x3 - Objective Vital Signs & Weight: Vital Signs (12 hours) Temp Pulse Pulse Pulse Resp BP BP 09/18/19 12:00 98.4 F 83 18 09/18/19 09:50 09/18/19 08:58 98 87 138/65 147/74 H 09/18/19 08:18 98.4 F 87 16 09/18/19 04:00 98.5 F 91 18 BP Pulse Ox Pulse Ox Pulse Ox 09/18/19 12:00 138/68 97 09/18/19 09:50 95 09/18/19 08:58 90 L 93 L 09/18/19 08:18 141/71 H 95 09/18/19 04:00 115/55 L 93 L Weight Admit Weight 279 lb 5.211 oz Weight 225 lb Most Recent Monitor Data Heart Rate from ECG 92 NIBP 164/88 NIBP BP-Mean 113 Respiration from ECG 18 SpO2 100 I&O: 09/17/19 09/18/19 09/19/19 06:59 06:59 06:59 Intake Total 960 1030 Output Total 150 300 Balance 810 730 Result Diagrams: 09/17/19 04:32 09/18/19 04:30 Additional Labs: Accuchecks 09/18/19 09/18/19 09/17/19 10:30 05:46 20:26 POC Glucose 178 H 133 H 139 H 09/17/19 15:23 POC Glucose 123 H Hospitalist ROS - Review of Systems Respiratory: denies: cough, dry, shortness of breath, hemoptysis, SOB with excertion, pleuritic pain, sputum, wheezing, other Cardiovascular: denies: chest pain, palpitations, orthopnea, paroxysmal noc. dyspnea, edema, light headedness, other Gastrointestinal: denies: nausea, vomiting, abdominal pain, diarrhea, constipation, melena, hematochezia, other - Medication Medications: Active Medications Generic Name Dose Route Start Last Admin Trade Name Freq PRN Reason Stop Dose Admin Acetaminophen 650 mg 09/11/19 23:04 09/16/19 02:35 Tylenol PO 650 mg Q6H PRN Administration Headache/Fever or Pain Albuterol/Ipratropium 3 ml 09/14/19 13:00 09/18/19 12:51 Duoneb NEB Not Given [id number] LEEANN Amlodipine Besylate 2.5 mg 09/15/19 09:00 09/18/19 10:23 Norvasc PO 2.5 mg DAILY LEEANN Administration Carvedilol 25 mg 09/11/19 21:00 09/18/19 10:24 Coreg PO 25 mg BID LEEANN Administration Cefdinir 300 mg 09/12/19 21:00 09/18/19 10:24 Omnicef PO 300 mg BID LEEANN Administration Dextrose/Water 25 gm 09/07/19 01:06 09/07/19 21:10 Dextrose 50% SLOW IVP 25 gm PRN PRN Administration Hypoglycemia Famotidine 20 mg 09/14/19 09:00 09/18/19 10:24 Pepcid PO 20 mg DAILY LEEANN Administration Sodium Chloride 1,000 mls @ 100 mls/hr 09/18/19 08:15 09/18/19 10:23 Normal Saline 0.9% IV 1,000 mls .Q10H LEEANN Administration Insulin Human Lispro 0 units 09/07/19 01:06 09/18/19 11:20 Humalog SC 2 unit .MODERATE SLIDING SC PRN Administration Moderate Correctional Scale Sodium Chloride 10 ml 09/07/19 09:00 09/18/19 10:24 Flush - Normal Saline IVF Not Given Q12HR LEEANN - Exam Neck: negative: supple, symmetric, no JVD, no thyromegaly, no lymphadenopathy, no carotid bruit, JVD Heart: negative: RRR, no murmur, no gallops, no rubs, normal peripheral pulses, irregular, diminshed peripheral pulses, murmur present, II/IV, III/IV Respiratory: negative: CTAB, no wheezes, no rales, no ronchi, normal chest expansion, no tachypnea, normal percussion, rales, rhonchi, tachypneic, wheezes Hosp A/P (1) Cardiac arrest Code(s): I46.9 - CARDIAC ARREST, CAUSE UNSPECIFIED Status: Resolved (2) Acute kidney injury superimposed on CKD Code(s): N17.9 - ACUTE KIDNEY FAILURE, UNSPECIFIED; N18.9 - CHRONIC KIDNEY DISEASE, UNSPECIFIED Status: Acute (3) Acute on chronic diastolic (congestive) heart failure Code(s): I50.33 - ACUTE ON CHRONIC DIASTOLIC (CONGESTIVE) HEART FAILURE Status : Acute (4) DVT (deep venous thrombosis) Code(s): I82.409 - ACUTE EMBOLISM AND THOMBOS UNSP DEEP VN UNSP LOWER EXTREMITY Status: Acute Qualifiers: DVT location: lower extremity Affected thrombotic vein of extremity: femoral Chronicity: acute Laterality: left Qualified Code(s): I82.412 - Acute embolism and thrombosis of left femoral vein (5) Diabetes Code(s): E11.9 - TYPE 2 DIABETES MELLITUS WITHOUT COMPLICATIONS Status: Chronic Qualifiers: Diabetes mellitus type: type 2 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: with 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 per cardiology pt to hold AC. He does have a IVC filter. will continue iv fluids.
[2019-09-19 05:25] LABS: INR-International Normal Ratio 1.5; Prothrombin Time 18.4 SEC (12.0-14.7)
[2019-09-19 05:41] LABS: Albumin 3.5 g/dL (3.5-5.0); Anion Gap 15 mmol/L (10-20); BUN (Urea Nitrogen) 37 mg/dL (8.4-25.7); Calc. Creatinine Clearance 45 mL/min (70-130); Calcium 9.7 mg/dL (7.8-10.44); Carbon Dioxide 24 mmol/L (22-29); Chloride 104 mmol/L (98-107); Estimated GFR-MDRD 32; Glucose 123 mg/dL (70-105); Phosphorus 3.8 mg/dL (2.3-4.7); Potassium 4.9 mmol/L (3.5-5.1); Sodium 138 mmol/L (136-145)
[2019-09-19 05:54] LABS: #Basophils 0.1 thou/uL (0.0-0.2); #Eosinphils 0.2 thou/uL (0.0-0.7); #Lymphocytes 1.8 thou/uL (1.20-3.40); #Monocytes 0.8 thou/uL (0.11-0.59); #Neutrophils 7.6 thou/uL (1.40-6.50); %Basophils 0.9 % (0.0-1.0); %Eosinophils 1.5 % (0.0-10.0); %Lymphocytes 16.8 % (21.0-51.0); %Neutrophils 72.8 % (42.0-75.0); Anisocytosis SLIGHT = 6-15 cells (100X) (0-5/hpf); Hemoglobin 8.6 g/dL (14.0-18.0); MDiff Complete? YES; Mean Corpuscular HGB CONC 31.8 g/dL (32.0-36.0); Mean Corpuscular Hemoglobin 29.8 pg (27.0-31.0); Mean Corpuscular Volume 93.7 fL (78.0-98.0); Mean Platelet Volume 7.8 fL (7.4-10.4); Platelet Count 337 thou/uL (130-400); Platelet Morphology Comment Appears Adequate; RBC Distribution Width 13.2 % (11.5-14.5); White Blood Cell (WBC) Count 10.4 thou/uL (4.8-10.8)
[2019-09-19] MEDS: Sodium Chloride 0.9% 1,000 ML IV SCH ×2 (11:52→19:49)
[2019-09-19] MEDS: Amlodipine 5 MG TAB PO SCH (11:53)
[2019-09-19] MEDS: Carvedilol 25 MG TAB PO SCH ×2 (11:54→20:59)
[2019-09-19] MEDS: Famotidine 20 MG TAB PO SCH (11:54)
[2019-09-19] MEDS: Cefdinir 300 MG CAP PO SCH ×2 (11:54→20:59)
--- NOTE | 2019-09-19 12:03 | NM ---
EXAM: CARDIAC SPECT HISTORY: Chest pain, CHF, atrial fibrillation, dyspnea, hypertension, diabetes, dyslipidemia, smoker TECHNIQUE: A myocardial perfusion scan was performed using the single isotope 1 day protocol with ro hnetium 99m sestamibi. [10 mCi] was injected intravenously for the rest exam followed by 30 mCi for the stress study. Pharmacologic stress with Lexiscan was monitored and interpreted by SOL Palomo FINDINGS: Homogeneous tracer distribution is seen in the myocardial segments on stress and rest image s without fixed or reversible defects. Gated SPECT LVEF: 65% Wall motion exam: Normal IMPRESSION: Normal myocardial perfusion scan
[2019-09-19] MEDS ORDERED: Regadenoson 0.4 MG/5 ML SYRINGE ONE (16:31)
--- NOTE | 2019-09-19 19:17 | PRG ---
DATE OF SERVICE: 09/19/2019 SUBJECTIVE: Mr. Ortega is doing fair after a stress test. He has no new symptoms. Rhythm remained stable. OBJECTIVE DATA: VITAL SIGNS: The blood pressure is 124/66, heart rate 85, respiration rate is 18, and temperature 97.5 degrees Fahrenheit. GENERAL: Alert and oriented man, in no apparent distress. NECK: Supple. Jugular veins not distended. CHEST: Coarse without crackles. HEART: Sounds are regular to rate and rhythm. No murmur or gallop. ABDOMEN: Benign. Bowel sounds positive. EXTREMITIES: Lower extremities without edema, clubbing, or cyanosis. DATABASE: The nuclear stress test performed today revealing LVEF 65%, normal. No abnormality. LABORATORY DATA: White cell count is 10.4, hemoglobin is 8.6, and platelet count is 337 on the 13. Sodium is 138, potassium is 4.9, BUN is 37, and creatinine is 2.5, improving. ASSESSMENT AND PLAN: Mr. Ortega is a 58-year-old man, who has presented on the with out of hospital cardiac arrest. The patient's initial rhythm was asystole, but that is after significantly down with downtime. Epinephrine brought him back to return of circulation. Recently received full ACLS and the intubation. Ventricular fibrillation is a very possible reason for his arrest as initial rhythm and so far, cardiac workup though is negative. He has normal LVEF and the nuclear stress test today is normal. His kidney function has worsened transiently, but now is improving. As I discussed with them, hence his cardiac arrest, I think is risk for recurrence, it is very high. Ventricular tachy arrhythmias or bradycardia are still very possible as part of the presentation, hence implantable cardioverter-defibrillator with pacing function is recommended. We discussed pros and cons about implantable cardioverter-defibrillator implant. He understands and willing to proceed. We will schedule him here for a near date, likely tomorrow, hence schedule is full today. Job ID: [id number] [facility]
--- NOTE | 2019-09-19 20:02 | PRG ---
DATE OF SERVICE: 09/18/2019 SERVICE: Nephrology. SUBJECTIVE: A 58-year-old male admitted after cardiac arrest, being followed by Nephrology for acute on chronic renal failure. Renal function has improved, but recently creatinine started trending up. Shortness of breath has resolved. There is no nausea and vomiting. ICD placement is contemplated. OBJECTIVE: VITAL SIGNS: Temperature 98.4, pulse 87, respiratory rate 16, SpO2 of 95% on room air, blood pressure is 138/65. GENERAL: Male patient in no obvious distress. Afebrile. Anicteric. Acyanotic. HEENT: Normocephalic, atraumatic. Oral mucosa is moist. CARDIOVASCULAR: Regular rhythm and rate with normal heart sounds 1 and 2. RESPIRATORY: Fair air entry bilateral with few crackles in the left base posteriorly. GASTROINTESTINAL: Obese, soft, nontender, and nondistended with normal bowel sounds. EXTREMITIES: No obvious edema noted. CENTRAL NERVOUS SYSTEM: Conscious, alert, oriented x3. Slow mentation and memory lapses noted. Moves all extremities but weakly. DIAGNOSTIC DATA: Renal function panel showed sodium 138, potassium 5.1, chloride 97, CO2 of 33, BUN 41, creatinine 3.42, glucose 137, calcium 9.7, phosphorus 3.8, albumin 3.8. Of note, creatinine has gone up from a dat of 2.02 to 3.42 today. Repeat urinalysis was unremarkable with no protein, red blood cells, or white blood cells. However, urine electrolytes showed urine creatinine of 262, urine sodium of 38, and urine urea nitrogen of 395 with fractional excretion of urea of 15% suggestive of prerenal etiology. ASSESSMENT AND PLAN: 1. Acute kidney injury. Initial acute kidney injury related to cardiorenal syndrome has resolved with creatinine trending down to 2.02. Current acute kidney injury most likely is due to hemodynamic factors related to diuretics and use of gabapentin. Acute tubular necrosis is a concern. However, fractional excretion of the urea is suggestive of prerenal etiology. We will therefore start IV fluid normal saline at 100 mL/hr for 1 L and recheck renal function in the morning. 2. Hypertension. Control is acceptable. 3. Chronic kidney disease, stage 3: Baseline is unknown, but the patient has improved to a creatinine dat of 2.02. This is felt to be due to hypertension and diabetes mellitus. 4. Acute on chronic diastolic heart failure associated with anasarca, markedly improved. 5. Volume overload, markedly improved with diuretics. 6. Cardiac arrest: Atrial and ventricular fibrillation is a concern. Teachers Aide is following the patient and automatic implantable cardioverter defibrillator placement is contemplated. I do not recommend proceeding with these at this time since contrast will be needed and this will worsen renal function. 7. Other treatment as per primary attending. Job ID: [id number]
--- NOTE | 2019-09-19 20:12 | PRG ---
DATE OF SERVICE: SERVICE: Nephrology. SUBJECTIVE: A 58-year-old, status post cardiac arrest, being followed up for acute on chronic renal failure. Initial NATHANIEL has resolved. The patient developed recurrent NATHANIEL which was felt to be related to the excessive diuresis as well as due to gabapentin. Creatinine is better with IV fluid therapy. There is no history of shortness of breath, nausea, or vomiting. OBJECTIVE: VITAL SIGNS: Temperature 98.1, pulse 86, respiratory rate 16, SpO2 of 99% on room air, and blood pressure is 149/72. GENERAL: Male patient, in no obvious distress. Afebrile. Anicteric. Acyanotic. HEENT: Normocephalic and atraumatic. Oral mucosa is moist. CARDIOVASCULAR: Regular rhythm and rate. Normal heart sounds, 1 and 2. RESPIRATORY: Fair air entry bilaterally with few bibasilar crackles. No obvious use of accessory muscles or rhonchi are appreciated. GI: Full, soft, nontender, nondistended with normal bowel sounds. EXTREMITIES: Trace left leg edema noted. 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 Slow mentation and memory lapses noted. DIAGNOSTIC DATA: CBC showed WBC count of 10.4, hemoglobin of 8.6, and platelets of 337. Coagulation panel showed PT 18.4, INR 1.5. Renal function panel showed sodium 138, potassium 4.9, chloride 104, CO2 of 24, BUN 37, creatinine 2.5, glucose 123, calcium 9.7, phosphorus 3.8, and albumin 3.5. ASSESSMENT AND PLAN: 1. Acute kidney injury: Due to prerenal etiology. Improving with IV fluid therapy. We will give additional 1 L of normal saline at 100 mL/hours. We will recheck renal function in the morning. 2. Chronic kidney disease, stage 3: Due to hypertension and diabetes. 3. Volume overload: Markedly improved. 4. Cardiac arrest: Suspected to be due to ventricular arrhythmia. AICD placement is planned. 5. Hypertension: Control is acceptable. 6. Anemia in chronic kidney disease. 7. Other treatment as per primary attending and other specialties. Job ID: [id number]
[2019-09-20 05:30] LABS: INR-International Normal Ratio 1.4; Prothrombin Time 17.1 SEC (12.0-14.7)
[2019-09-20 05:47] LABS: Albumin 3.7 g/dL (3.5-5.0); Anion Gap 12 mmol/L (10-20); BUN (Urea Nitrogen) 30 mg/dL (8.4-25.7); BUN/Creatinine Ratio 15.71; Calc. Creatinine Clearance 59 mL/min (70-130); Calcium 9.5 mg/dL (7.8-10.44); Carbon Dioxide 27 mmol/L (22-29); Chloride 104 mmol/L (98-107); Estimated GFR-MDRD 44; Glucose 133 mg/dL (70-105); Phosphorus 3.8 mg/dL (2.3-4.7); Potassium 4.3 mmol/L (3.5-5.1); Sodium 139 mmol/L (136-145)
--- NOTE | 2019-09-20 05:58 | PDOC.HOSPP ---
- Subjective Encounter Date: 09/19/19 Encounter Time: 10:30 Subjective: pt up in bed no complains. - Objective Vital Signs & Weight: Vital Signs (12 hours) Temp Pulse Resp BP Pulse Ox 09/20/19 03:35 98.9 F 86 18 130/64 96 09/19/19 20:54 98.9 F 88 18 140/63 95 Weight Admit Weight 279 lb 5.211 oz Weight 221 lb 3.2 oz Most Recent Monitor Data Heart Rate from ECG 92 NIBP 164/88 NIBP BP-Mean 113 Respiration from ECG 18 SpO2 100 I&O: 09/18/19 09/19/19 09/20/19 06:59 06:59 06:59 Intake Total 1030 2320 770 Output Total 300 1900 550 Balance 730 420 220 Result Diagrams: 09/19/19 04:52 09/20/19 04:48 Additional Labs: Accuchecks 09/19/19 09/19/19 09/19/19 20:34 16:51 11:49 POC Glucose 172 H 112 H 134 H 09/19/19 05:57 POC Glucose 141 H Hospitalist ROS - Review of Systems Cardiovascular: denies: chest pain, palpitations, orthopnea, paroxysmal noc. dyspnea, edema, light headedness, other Gastrointestinal: denies: nausea, vomiting, abdominal pain, diarrhea, constipation, melena, hematochezia, other Genitourinary: denies: dysuria, frequency, incontinence, hematuria, retention, other - Medication Medications: Active Medications Generic Name Dose Route Start Last Admin Trade Name Freq PRN Reason Stop Dose Admin Acetaminophen 650 mg 09/11/19 23:04 09/16/19 02:35 Tylenol PO 650 mg Q6H PRN Administration Headache/Fever or Pain Amlodipine Besylate 2.5 mg 09/15/19 09:00 09/19/19 11:53 Norvasc PO 2.5 mg DAILY LEEANN Administration Carvedilol 25 mg 09/11/19 21:00 09/19/19 20:59 Coreg PO 25 mg BID LEEANN Administration Cefdinir 300 mg 09/12/19 21:00 09/19/19 20:59 Omnicef PO 300 mg BID LEEANN Administration Dextrose/Water 25 gm 09/07/19 01:06 09/07/19 21:10 Dextrose 50% SLOW IVP 25 gm PRN PRN Administration Hypoglycemia Famotidine 20 mg 09/14/19 09:00 09/19/19 11:54 Pepcid PO 20 mg DAILY LEEANN Administration Insulin Human Lispro 0 units 09/07/19 01:06 09/18/19 18:43 Humalog SC 2 unit .MODERATE SLIDING SC PRN Administration Moderate Correctional Scale Sodium Chloride 10 ml 09/07/19 09:00 09/19/19 21:00 Flush - Normal Saline IVF Not Given Q12HR LEEANN - Exam Neck: negative: supple, symmetric, no JVD, no thyromegaly, no lymphadenopathy, no carotid bruit, JVD Heart: negative: RRR, no murmur, no gallops, no rubs, normal peripheral pulses, irregular, diminshed peripheral pulses, murmur present, II/IV, III/IV Respiratory: negative: CTAB, no wheezes, no rales, no ronchi, normal chest expansion, no tachypnea, normal percussion, rales, rhonchi, tachypneic, wheezes Hosp A/P (1) Cardiac arrest Code(s): I46.9 - CARDIAC ARREST, CAUSE UNSPECIFIED Status: Resolved (2) Acute kidney injury superimposed on CKD Code(s): N17.9 - ACUTE KIDNEY FAILURE, UNSPECIFIED; N18.9 - CHRONIC KIDNEY DISEASE, UNSPECIFIED Status: Acute (3) Acute on chronic diastolic (congestive) heart failure Code(s): I50.33 - ACUTE ON CHRONIC DIASTOLIC (CONGESTIVE) HEART FAILURE Status : Acute (4) DVT (deep venous thrombosis) Code(s): I82.409 - ACUTE EMBOLISM AND THOMBOS UNSP DEEP VN UNSP LOWER EXTREMITY Status: Acute Qualifiers: DVT location: lower extremity Affected thrombotic vein of extremity: femoral Chronicity: acute Laterality: left Qualified Code(s): I82.412 - Acute embolism and thrombosis of left femoral vein (5) Diabetes Code(s): E11.9 - TYPE 2 DIABETES MELLITUS WITHOUT COMPLICATIONS Status: Chronic Qualifiers: Diabetes mellitus type: type 2 Diabetes mellitus half-way insulin use: with half-way use Diabetes mellitus complication status: with kidney complications Diabetes mellitus complication detail: with chronic kidney disease Chronic kidney disease stage: stage 3 (moderate) Qualified Code(s): E11.22 - Type 2 diabetes mellitus with diabetic chronic kidney disease; N18.3 - Chronic kidney disease, stage 3 (moderate); Z79.4 - detention (current) use of insulin (6) Encephalopathy acute Code(s): G93.40 - ENCEPHALOPATHY, UNSPECIFIED Status: Resolved (7) Positive blood culture Code(s): R78.81 - BACTEREMIA Status: Resolved - Plan pt will undergo stress test in am. per cardiology pt to hold AC. He does have a IVC filter. will continue iv fluids. 09/19 s/p stress test and ICD placement. will need to start AC once ok with cardio. will check labs in am. creatinine has improved with iv fluids.
[2019-09-20] MEDS ORDERED: Iron, Sodium Ferric Gluconate 250 MG in Sodium Chloride 0.9% 100 ML IVPB SCH (07:30)
[2019-09-20] MEDS ORDERED: EPOETIN ALFA-EPBX (ESRD) 10,000 UNIT/ML VIAL SC SCH (07:30)
[2019-09-20] MEDS ORDERED: Epoetin (ESRD) 10,000 UNITS/ML VIAL SC SCH (07:30)
[2019-09-20] MEDS: Amlodipine 5 MG TAB PO SCH (09:28)
[2019-09-20] MEDS: Carvedilol 25 MG TAB PO SCH ×2 (09:28→21:19)
[2019-09-20] MEDS: Cefdinir 300 MG CAP PO SCH ×2 (09:28→21:19)
[2019-09-20] MEDS: Famotidine 20 MG TAB PO SCH (09:28)
[2019-09-20] MEDS ORDERED: Iopamidol 370 76% 50 ML VIAL FS ONE (10:19)
--- NOTE | 2019-09-20 13:03 | PRG ---
DATE OF SERVICE: 09/20/2019 SERVICE: Nephrology. SUBJECTIVE: A 58-year-old, status post cardiac arrest, being followed up for acute on chronic renal failure. The patient is more awake and conversational. Denied nausea, vomiting, shortness of breath, or worsening edema. AICD placement is contemplated. OBJECTIVE: VITAL SIGNS: Temperature 98.2, pulse 75, respiratory rate 14, SpO2 100% on room air, and blood pressure is 162/75. GENERAL: Male patient, in no obvious distress. Afebrile. Anicteric. Acyanotic. HEENT: Normocephalic, atraumatic. Oral mucosa is moist. CARDIOVASCULAR: Regular rhythm and rate with normal heart sounds 1 and 2. RESPIRATORY: Fair air entry bilaterally with a few bibasilar crackles posteriorly. No use of accessory muscles appreciated. GI: Full, soft, nontender, nondistended with normal bowel sounds. EXTREMITIES: Mild left leg edema noted. Other extremities are grossly normal with no edema or erythema. 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 Some memory lapses noted. DIAGNOSTIC DATA: Renal function panel showed sodium of 139, potassium 4.3, chloride 104, CO2 of 27, BUN 30, creatinine 1.91, glucose 133, calcium 9.5, phosphorus 3.8, and albumin 3.7. ASSESSMENT: 1. Acute on chronic renal failure: Due to prerenal etiology, is related to cardiorenal and excessive diuretic therapy. Contribution from gabapentin is considered. Creatinine is down to 1.9 with IV fluid therapy. No further IV fluid therapy is contemplated. We will consider diuretic therapy after AICD placement if the patient shows sign of fluid overload. 2. Chronic kidney disease, stage 3, at baseline due to hypertension and diabetes. 3. Hypertension: Control is acceptable. We will monitor closely and adjust medication to get adequate BP control. 4. Anemia in chronic kidney disease: We will give IV iron and Procrit. 5. Volume overload: Markedly improved with diuretics. Volume status is acceptable at this time. No need for diuretic at this time. Job ID: [id number]
[2019-09-20] MEDS ORDERED: Lidocaine 1% (PF) 30 ML VIAL ONE (14:49)
[2019-09-20] MEDS ORDERED: Fentanyl 100 MCG/2 ML VIAL ONE ×2 (15:41→16:34)
[2019-09-20] MEDS ORDERED: Midazolam HCl 2 mg/2 ml Vial ONE ×3 (15:41→16:34)
[2019-09-20] MEDS ORDERED: diphenhydrAMINE 50 MG/ML VIAL ONE (16:04)
[2019-09-20] MEDS ORDERED: Ketamine 50 MG/ML (10ML VIAL) ONE (16:34)
[2019-09-20] MEDS ORDERED: Propofol 500 MG/50 ML VIAL ONE (16:34)
[2019-09-20] MEDS ORDERED: Warfarin Sodium 2 MG TAB PO SCH (18:45)
[2019-09-20] MEDS: traMADol HCl 50 MG TAB PO PRN (19:10)
[2019-09-21 04:28] LABS: INR-International Normal Ratio 1.4; Prothrombin Time 17.1 SEC (12.0-14.7)
[2019-09-21 04:45] LABS: Anion Gap 11 mmol/L (10-20); BUN (Urea Nitrogen) 21 mg/dL (8.4-25.7); Calc. Creatinine Clearance 64 mL/min (70-130); Carbon Dioxide 26 mmol/L (22-29); Chloride 107 mmol/L (98-107); Estimated GFR-MDRD 49; Potassium 4.5 mmol/L (3.5-5.1); Sodium 139 mmol/L (136-145)
[2019-09-21 04:46] LABS: Albumin 3.7 g/dL (3.5-5.0); BUN/Creatinine Ratio 12.14; Calcium 9.6 mg/dL (7.8-10.44); Glucose 133 mg/dL (70-105); Phosphorus 4.2 mg/dL (2.3-4.7)
--- NOTE | 2019-09-21 07:38 | RAD ---
Chest AP view INDICATION: Cardiac device placement COMPARISON: Chest radiograph 2 views dated September 17, 2019 FINDINGS: Lungs:The lungs are clear Cardiac silhouette:Stable mild to moderate cardiomegaly. Pulmonary vasculature:Normal Pleural spaces:No pleural effusion or pneumothorax is demonstrated. Upper abdomen:No abnormality seen. Osseous structures: No acute osseous abnormality. Additional findings:There is a new 2-lead AICD overlying left chest wall. The leads project in the ex pected position. IMPRESSION: Interval placement of a new 2-lead AICD overlying the left chest wall. No pneumothorax. S table [id number] cardiomegaly.
--- NOTE | 2019-09-21 09:09 | PDOC.HOSPP ---
- Subjective Encounter Date: 09/20/19 Encounter Time: 11:45 Subjective: pt up in bed no complains, is going for icd placement - Objective Vital Signs & Weight: Vital Signs (12 hours) Temp Pulse Resp BP Pulse Ox 09/21/19 08:13 98.2 F 80 15 138/70 95 09/21/19 05:01 96 09/21/19 04:00 98.3 F 86 18 144/79 H 98 Weight Admit Weight 279 lb 5.211 oz Weight 221 lb 3.2 oz Most Recent Monitor Data Heart Rate from ECG 92 NIBP 164/88 NIBP BP-Mean 113 Respiration from ECG 18 SpO2 100 I&O: 09/20/19 09/21/19 09/22/19 06:59 06:59 06:59 Intake Total 770 960 Output Total 550 2100 Balance 220 -1140 Result Diagrams: 09/19/19 04:52 09/21/19 04:12 Additional Labs: Accuchecks 09/21/19 09/20/19 09/20/19 06:08 20:18 10:42 POC Glucose 146 H 140 H 111 H Hospitalist ROS - Review of Systems Respiratory: denies: cough, dry, shortness of breath, hemoptysis, SOB with excertion, pleuritic pain, sputum, wheezing, other Cardiovascular: denies: chest pain, palpitations, orthopnea, paroxysmal noc. dyspnea, edema, light headedness, other Gastrointestinal: denies: nausea, vomiting, abdominal pain, diarrhea, constipation, melena, hematochezia, other - Medication Medications: Active Medications Generic Name Dose Route Start Last Admin Trade Name Tiffanie PRN Reason Stop Dose Admin Acetaminophen 650 mg 09/11/19 23:04 09/16/19 02:35 Tylenol PO 650 mg Q6H PRN Administration Headache/Fever or Pain Amlodipine Besylate 2.5 mg 09/15/19 09:00 09/20/19 09:28 Norvasc PO 2.5 mg DAILY LEEANN Administration Carvedilol 25 mg 09/11/19 21:00 09/20/19 21:19 Coreg PO 25 mg BID LEEANN Administration Cefdinir 300 mg 09/12/19 21:00 09/20/19 21:19 Omnicef PO 300 mg BID LEEANN Administration Dextrose/Water 25 gm 09/07/19 01:06 09/07/19 21:10 Dextrose 50% SLOW IVP 25 gm PRN PRN Administration Hypoglycemia Famotidine 20 mg 09/14/19 09:00 09/20/19 09:28 Pepcid PO 20 mg DAILY LEEANN Administration Insulin Human Lispro 0 units 09/07/19 01:06 09/18/19 18:43 Humalog SC 2 unit .MODERATE SLIDING SC PRN Administration Moderate Correctional Scale Sodium Chloride 10 ml 09/07/19 09:00 09/20/19 21:19 Flush - Normal Saline IVF 10 ml Q12HR LEEANN Administration Tramadol HCl 50 mg 09/17/19 08:10 09/20/19 19:10 Ultram PO 50 mg Q12H PRN Administration Breakthrough Pain - Exam Neck: negative: supple, symmetric, no JVD, no thyromegaly, no lymphadenopathy, no carotid bruit, JVD Heart: negative: RRR, no murmur, no gallops, no rubs, normal peripheral pulses, irregular, diminshed peripheral pulses, murmur present, II/IV, III/IV Respiratory: negative: CTAB, no wheezes, no rales, no ronchi, normal chest expansion, no tachypnea, normal percussion, rales, rhonchi, tachypneic, wheezes Hosp A/P (1) Cardiac arrest Code(s): I46.9 - CARDIAC ARREST, CAUSE UNSPECIFIED Status: Resolved (2) Acute kidney injury superimposed on CKD Code(s): N17.9 - ACUTE KIDNEY FAILURE, UNSPECIFIED; N18.9 - CHRONIC KIDNEY DISEASE, UNSPECIFIED Status: Acute (3) Acute on chronic diastolic (congestive) heart failure Code(s): I50.33 - ACUTE ON CHRONIC DIASTOLIC (CONGESTIVE) HEART FAILURE Status : Acute (4) DVT (deep venous thrombosis) Code(s): I82.409 - ACUTE EMBOLISM AND THOMBOS UNSP DEEP VN UNSP LOWER EXTREMITY Status: Acute Qualifiers: DVT location: lower extremity Affected thrombotic vein of extremity: femoral Chronicity: acute Laterality: left Qualified Code(s): I82.412 - Acute embolism and thrombosis of left femoral vein (5) Diabetes Code(s): E11.9 - TYPE 2 DIABETES MELLITUS WITHOUT COMPLICATIONS Status: Chronic Qualifiers: Diabetes mellitus type: type 2 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 per cardiology pt to hold AC. He does have a IVC filter. will continue iv fluids. 09/19 s/p stress test and ICD placement. will need to start AC once ok with cardio. will check labs in am. creatinine has improved with iv fluids. 09/20 pt to undergo icd placement. will start pt on coumadin. he is going to snf. stress test ef 60%. creatinine is improving. continue to avoid nephrotoxins.
[2019-09-21] MEDS: Cefdinir 300 MG CAP PO SCH (09:22)
[2019-09-21] MEDS: Amlodipine 5 MG TAB PO SCH (09:22)
[2019-09-21] MEDS: Famotidine 20 MG TAB PO SCH (09:24)
[2019-09-21] MEDS: Carvedilol 25 MG TAB PO SCH ×2 (09:24→20:38)
[2019-09-21] MEDS: traMADol HCl 50 MG TAB PO PRN (09:26)
--- NOTE | 2019-09-21 09:56 | PDOC.CPN ---
- Subjective Date: 09/21/19 Time: 09:54 Interval history: EP PROGRESS NOTE: Follow up after ICD implant for cardiac arrest. - Review of Systems General: denies: fever/chills, weight/appetite/sleep changes, night sweats, fatigue Respiratory: denies: cough, congestion, shortness of breath Cardiovascular: denies: chest pain, palpitation, edema Gastrointestinal: denies: nausea, vomiting, diarrhea Musculoskeletal: reports: tenderness (at ICD implant site). denies: pain, swelling - Objective Allergies/Adverse Reactions: Allergies Allergy/AdvReac Type Severity Reaction Status Date / Time No Allergy Information Allergy Verified 09/07/19 01:46 Available Visit Medications: Current Medications Acetaminophen (Tylenol) 650 mg PO Q6H PRN PRN Reason: Headache/Fever or Pain Last Admin: 09/16/19 02:35 Dose: 650 mg Albuterol/Ipratropium (Duoneb) 3 ml NEB Q6H PRN PRN Reason: SOB &/or Wheezing Amlodipine Besylate (Norvasc) 2.5 mg PO DAILY [facility] Last Admin: 09/21/19 09:22 Dose: 2.5 mg Artificial Tears (Tears Naturale) 0 drop EA EYE Q1H PRN PRN Reason: DRY EYES Carvedilol (Coreg) 25 mg PO BID [facility] Last Admin: 09/21/19 09:24 Dose: 25 mg Cefdinir (Omnicef) 300 mg PO BID [facility] Last Admin: 09/21/19 09:22 Dose: 300 mg Cephalexin (Keflex) 500 mg PO Q6HR [facility] Stop: 09/28/19 12:01 Dextrose/Water (Dextrose 50%) 25 gm SLOW IVP PRN PRN PRN Reason: Hypoglycemia Last Admin: 09/07/19 21:10 Dose: 25 gm Famotidine (Pepcid) 20 mg PO DAILY [facility] Last Admin: 09/21/19 09:24 Dose: 20 mg Glucagon (Glucagon) 1 mg IM PRN PRN PRN Reason: Hypoglycemia Dextrose/Water (D5w) 1,000 mls @ 0 mls/hr IV .Q0M PRN PRN Reason: Hypoglycemia Potassium Chloride 40 meq/ (Sodium Chloride) 270 mls @ 135 mls/hr IVPB ASDIR PRN PRN Reason: FOR SERUM K+ 2.5 - 3.5 Potassium Chloride 40 meq/ (Device) 100 mls @ 50 mls/hr IVPB ASDIR PRN PRN Reason: FOR SERUM K+ 2.5 - 3.5 Magnesium Sulfate 1 gm/ Sodium (Chloride) 102 mls @ 102 mls/hr IV PRN PRN PRN Reason: MAG LEVEL 1.4 - 2.0 Magnesium Sulfate 2 gm/ Device 50 mls @ 50 mls/hr IVPB ASDIR PRN PRN Reason: MAGNESIUM < 1.4 Potassium Phosphate 9 mmol/ (Sodium Chloride) 103 mls @ 25.75 mls/hr IVPB ASDIR PRN PRN Reason: Phosphate 1.0-1.8 Potassium Phosphate 12 mmol/ (Sodium Chloride) 254 mls @ 63.5 mls/hr IV ASDIR PRN PRN Reason: Serum phosphate 0.5-0.9 Potassium Phosphate 15 mmol/ (Sodium Chloride) 255 mls @ 63.75 mls/hr IV ASDIR PRN PRN Reason: Serum Phos < 0.5 Insulin Human Lispro (Humalog) 0 units SC .MODERATE SLIDING SC PRN PRN Reason: Moderate Correctional Scale Last Admin: 09/18/19 18:43 Dose: 2 unit Insulin Human Lispro (Humalog) 0 units SC .BEDTIME SLIDING SC PRN PRN Reason: Bedtime Correctional Scale Magnesium Oxide (Magnesium Oxide) 400 mg PO BIDPRN PRN PRN Reason: FOR SERUM MAG 1.4 - 2.0 Magnesium Oxide (Magnesium Oxide) 800 mg PO PRN PRN PRN Reason: FOR SERUM MAG < 1.4 Miscellaneous Medication (Phos-Nak) 1 pkt PO TIDPRN PRN PRN Reason: FOR PHOS LEVEL 1.0 - 1.8 Miscellaneous Medication (Phos-Nak) 2 pkt PO TIDPRN PRN PRN Reason: FOR PHOS LEVEL 0.5 - 1.0 Miscellaneous Medication (Pharmacy To Dose) 1 each PO PRN PRN PRN Reason: Pharmacy to dose Ondansetron HCl (Zofran Odt) 4 mg PO Q6H PRN PRN Reason: Nausea/Vomiting Ondansetron HCl (Zofran) 4 mg IVP Q6H PRN PRN Reason: Nausea/Vomiting Potassium Chloride (K-Dur) 40 meq PO ASDIR PRN PRN Reason: FOR SERUM K+ 2.5 - 3.5 Potassium Chloride (Klor-Con) 40 meq PER TUBE ASDIR PRN PRN Reason: FOR SERUM K+ 2.5-3.5 Sodium Chloride (Flush - Normal Saline) 10 ml IVF Q12HR LEEANN Last Admin: 09/21/19 09:27 Dose: 10 ml Sodium Chloride (Flush - Normal Saline) 10 ml IVF PRN PRN PRN Reason: Saline Flush Tramadol HCl (Ultram) 50 mg PO Q12H PRN PRN Reason: Breakthrough Pain Last Admin: 09/21/19 09:26 Dose: 50 mg Warfarin Sodium (Coumadin) 2 mg PO 1700 LEEANN Vital Signs & Weight: Vital Signs Temp Pulse Resp BP Pulse Ox 09/21/19 08:13 98.2 F 80 15 138/70 95 09/21/19 05:01 96 09/21/19 04:00 98.3 F 86 18 144/79 H 98 Admit Weight 279 lb 5.211 oz Weight 221 lb 3.2 oz - Physical Exam General: alert & oriented x3, appears well, no apparent distress HEENT: mucus membranes moist, normocephaly Neck: supple neck, midline trachea, no JVD/HJR Cardiac: regular rate and rhythm, no murmur, regular rate, regular rhythm Lungs: clear to auscultation, normal breath sounds, normal exam Neuro: cranial nerve 2-12 intact, grossly intact, no lateralizing findings Abdomen: unremarkable, active bowel sounds, no masses Extremities: no cyanosis, no clubbing, no edema Skin: negative: other (ICD implant site CDI. no drainage. mild swelling) - Labs Result Diagrams: 09/19/19 04:52 09/21/19 04:12 Troponin/CKMB CK-MB (CK-2) 15.3 ng/mL (0-6.6) H* 09/07/19 20:25 Troponin I 0.117 ng/mL (< 0.028) H 09/07/19 20:25 - Telemetry Sinus rhythms and dysrhythmias: sinus rhythm - Assessment/Plan Assessment/Plan: 1. ICD -placed 09/20 as secondary prevention - CXR stable, no pneumothorax. SHows mod cardiomegaly -Post implant Keflex x 7 days 2. s/p Cardiac arrest -LHC negative for significant CAD - nml EF + family history for SCD. States brother suddenly in his sleep 3. Chronic renal insufficiency - creat 1.7 today 4. Encephalopathy - post arrest, likely anoxic injury CXR stable. Wound check in 2 weeks at [facility]. Post implant keflex x7 days. Rx in chart for discharge. Tramadol for pain PRN. OK for DC
[2019-09-21] MEDS: Cephalexin 250 MG CAP PO SCH ×2 (11:48→17:36)
[2019-09-21] MEDS: HumaLOG 300 UNITS/3 ML VIAL SC PRN (11:48)
--- NOTE | 2019-09-21 13:01 | PRG ---
DATE OF SERVICE: 09/21/2019 SERVICE: Nephrology. SUBJECTIVE: A 58-year-old male admitted after cardiac arrest, being followed up for [id number] renal failure. The patient reports feeling better. The patient had AICD placement yesterday. No new problem. OBJECTIVE: VITAL SIGNS: Temperature 98.2, pulse 80, respiratory rate 15, SpO2 of 95% on room air, blood pressure is 138/70. GENERAL: Male patient, in no obvious distress. Fatigued, but not febrile. HEENT: Normocephalic, atraumatic. Oral mucosa is moist. CARDIOVASCULAR: Regular rhythm and rate with normal heart sounds 1 and 2. RESPIRATORY: Good air entry bilaterally with no obvious crackle or rhonchi or use of accessory muscles. GI: Abdomen is obese, soft, nontender, nondistended with normal bowel sounds. EXTREMITIES: Trace left leg edema. Other extremities are grossly normal with no edema or erythema. 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 DIAGNOSTIC DATA: Renal function panel today showed sodium 139, potassium 4.5, chloride 107, CO2 of 26, BUN 21, creatinine 1.73, glucose 133, calcium 9.6, phosphorus 4.2, albumin 3.7. ASSESSMENT: 1. [id number]-rydgwmn renal failure. Clinically improved. Creatinine has gone down significant from peak of 3.4 to 1.73. We will continue to hold diuretics. We will also avoid nephrotoxic agents. 2. Volume status: The patient is euvolemic. There is no need for diuretic at this time. Given history of CHF, it is anticipated that the patient will be restarted on diuretic at some point. 3. Anemia in chronic kidney disease. Status post iron therapy. We will monitor hemoglobin and hematocrit. We will also continue erythrocyte stimulating agent. 4. Hypertension: Control is acceptable. We will continue current antihypertensives. 5. We will repeat renal function panel and CBC in the morning. Job ID: [id number]
[2019-09-21] MEDS ORDERED: Warfarin Sodium 5 MG TAB PO SCH (17:00)
[2019-09-21] MEDS ORDERED: Warfarin Sodium 2 MG TAB PO SCH (17:00)
[2019-09-22] MEDS: Cephalexin 250 MG CAP PO SCH ×3 (00:01→11:41)
[2019-09-22 04:50] LABS: INR-International Normal Ratio 1.4; Prothrombin Time 17.3 SEC (12.0-14.7)
[2019-09-22 05:04] VITALS: BMI 30.3
[2019-09-22 07:53] VITALS: TEMP 98.5
--- NOTE | 2019-09-22 09:28 | PDOC.HOSPP ---
- Subjective Encounter Date: 09/21/19 Encounter Time: 11:45 Subjective: pt in bed complains of pain to his right chest wall area - Objective Vital Signs & Weight: Vital Signs (12 hours) Temp Pulse Resp BP Pulse Ox 09/22/19 07:46 98.5 F 89 13 156/74 H 96 09/22/19 04:05 98.6 F 92 20 137/92 H 96 Weight Admit Weight 279 lb 5.211 oz Weight 223 lb 9.6 oz Most Recent Monitor Data Heart Rate from ECG 92 NIBP 164/88 NIBP BP-Mean 113 Respiration from ECG 18 SpO2 100 I&O: 09/21/19 09/22/19 09/23/19 06:59 06:59 06:59 Intake Total 960 960 Output Total 2100 450 Balance -1140 510 Result Diagrams: 09/19/19 04:52 09/21/19 04:12 Additional Labs: Accuchecks 09/22/19 09/21/19 09/21/19 05:26 20:37 16:39 POC Glucose 109 105 145 H 09/21/19 10:33 POC Glucose 231 H Hospitalist ROS - Review of Systems Respiratory: denies: cough, dry, shortness of breath, hemoptysis, SOB with excertion, pleuritic pain, sputum, wheezing, other Cardiovascular: denies: chest pain, palpitations, orthopnea, paroxysmal noc. dyspnea, edema, light headedness, other Gastrointestinal: denies: nausea, vomiting, abdominal pain, diarrhea, constipation, melena, hematochezia, other - Medication Medications: Active Medications Generic Name Dose Route Start Last Admin Trade Name Javierq PRN Reason Stop Dose Admin Acetaminophen 650 mg 09/11/19 23:04 09/16/19 02:35 Tylenol PO 650 mg Q6H PRN Administration Headache/Fever or Pain Amlodipine Besylate 2.5 mg 09/15/19 09:00 09/21/19 09:22 Norvasc PO 2.5 mg DAILY LEEANN Administration Carvedilol 25 mg 09/11/19 21:00 09/21/19 20:38 Coreg PO 25 mg BID LEEANN Administration Cephalexin 500 mg 09/21/19 12:00 09/22/19 06:15 Keflex PO 09/28/19 12:01 500 mg Q6HR LEEANN Administration Dextrose/Water 25 gm 09/07/19 01:06 09/07/19 21:10 Dextrose 50% SLOW IVP 25 gm PRN PRN Administration Hypoglycemia Famotidine 20 mg 09/14/19 09:00 09/21/19 09:24 Pepcid PO 20 mg DAILY LEEANN Administration Insulin Human Lispro 0 units 09/07/19 01:06 09/21/19 11:48 Humalog SC 4 unit .MODERATE SLIDING SC PRN Administration Moderate Correctional Scale Sodium Chloride 10 ml 09/07/19 09:00 09/21/19 20:40 Flush - Normal Saline IVF 10 ml Q12HR LEEANN Administration Tramadol HCl 50 mg 09/17/19 08:10 09/21/19 09:26 Ultram PO 50 mg Q12H PRN Administration Breakthrough Pain Warfarin Sodium 5 mg 09/21/19 17:00 09/21/19 17:36 Coumadin PO 5 mg 1700 LEEANN Administration - Exam Heart: negative: RRR, no murmur, no gallops, no rubs, normal peripheral pulses, irregular, diminshed peripheral pulses, murmur present, II/IV, III/IV Heart - other findings: chest wall incision intact Respiratory: negative: CTAB, no wheezes, no rales, no ronchi, normal chest expansion, no tachypnea, normal percussion, rales, rhonchi, tachypneic, wheezes Hosp A/P (1) Cardiac arrest Code(s): I46.9 - CARDIAC ARREST, CAUSE UNSPECIFIED Status: Resolved (2) Acute kidney injury superimposed on CKD Code(s): N17.9 - ACUTE KIDNEY FAILURE, UNSPECIFIED; N18.9 - CHRONIC KIDNEY DISEASE, UNSPECIFIED Status: Acute (3) Acute on chronic diastolic (congestive) heart failure Code(s): I50.33 - ACUTE ON CHRONIC DIASTOLIC (CONGESTIVE) HEART FAILURE Status : Acute (4) DVT (deep venous thrombosis) Code(s): I82.409 - ACUTE EMBOLISM AND THOMBOS UNSP DEEP VN UNSP LOWER EXTREMITY Status: Acute Qualifiers: DVT location: lower extremity Affected thrombotic vein of extremity: femoral Chronicity: acute Laterality: left Qualified Code(s): I82.412 - Acute embolism and thrombosis of left femoral vein (5) Diabetes Code(s): E11.9 - TYPE 2 DIABETES MELLITUS WITHOUT COMPLICATIONS Status: Chronic Qualifiers: Diabetes mellitus type: type 2 Diabetes mellitus correction insulin use: with correction use Diabetes mellitus complication status: with kidney complications Diabetes mellitus complication detail: with chronic kidney disease Chronic kidney disease stage: stage 3 (moderate) Qualified Code(s): E11.22 - Type 2 diabetes mellitus with diabetic chronic kidney disease; N18.3 - Chronic kidney disease, stage 3 (moderate); 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 per cardiology pt to hold AC. He does have a IVC filter. will continue iv fluids. 09/19 s/p stress test and ICD placement. will need to start AC once ok with cardio. will check labs in am. creatinine has improved with iv fluids. 09/20 pt to undergo icd placement. will start pt on coumadin. he is going to snf. stress test ef 60%. creatinine is improving. continue to avoid nephrotoxins. 09/21 spoke with EP who feels his concerned if he gets therapeutic too fast for his recent icd placement. will continue Coumadin for now. goal of 2-3. if ok with ep may be discharged to snf today. will hold MAYLIN and neurontin due to recent kirby. pt currently does not need lasix,
[2019-09-22 09:32] LABS: Hemoglobin 8.8 g/dL (14.0-18.0); Mean Corpuscular Hemoglobin 30.4 pg (27.0-31.0); Mean Platelet Volume 6.8 fL (7.4-10.4); Platelet Count 324 thou/uL (130-400); RBC Distribution Width 13.5 % (11.5-14.5); White Blood Cell (WBC) Count 8.8 thou/uL (4.8-10.8)
[2019-09-22 09:41] LABS: Albumin 3.7 g/dL (3.5-5.0); Anion Gap 12 mmol/L (10-20); BUN (Urea Nitrogen) 20 mg/dL (8.4-25.7); BUN/Creatinine Ratio 12.05; Calc. Creatinine Clearance 68 mL/min (70-130); Calcium 9.5 mg/dL (7.8-10.44); Carbon Dioxide 25 mmol/L (22-29); Chloride 106 mmol/L (98-107); Estimated GFR-MDRD 51; Glucose 95 mg/dL (70-105); Phosphorus 4.3 mg/dL (2.3-4.7); Potassium 4.4 mmol/L (3.5-5.1); Sodium 139 mmol/L (136-145)
[2019-09-22] MEDS: Carvedilol 25 MG TAB PO SCH (09:58)
[2019-09-22] MEDS: Amlodipine 5 MG TAB PO SCH (09:58)
[2019-09-22] MEDS: Famotidine 20 MG TAB PO SCH (09:58)
[2019-09-22] MEDS: traMADol HCl 50 MG TAB PO PRN (09:58)
--- NOTE | 2019-09-22 10:30 | PRG ---
DATE OF SERVICE: 09/22/2019 SERVICE: Nephrology. SUBJECTIVE: A 58-year-old male being followed up for acute on chronic renal failure. The patient was admitted initially due to cardiac arrest. Clinically improved. Denied nausea, vomiting, or abdominal pain. He is having generalized body weakness. Oral intake is fair. OBJECTIVE: VITAL SIGNS: Temperature 98.5, pulse 89, respiratory rate 13, SpO2 of 96% on room air, and blood pressure is 156/74. GENERAL: Male patient, in no obvious distress. Fatigued. Afebrile. Anicteric. Acyanotic. HEENT: Normocephalic and atraumatic. Oral mucosa is moist. NECK: Supple. Nontender with good range of motion. No JVD appreciated. CARDIOVASCULAR: Regular rhythm and rate with normal heart sounds 1 and 2. RESPIRATORY: Fair air entry bilaterally with few crackles on left base posteriorly. No rhonchi or use of accessory muscles appreciated. GI: Obese, soft, nontender, and nondistended with normal bowel sounds. EXTREMITIES: Trace left leg edema noted. Other extremities are grossly normal with no edema or erythema. CARE WORKER: Conscious, alert, and oriented x3 with appropriate mental status. Slow mentation and some memory lapses noted. DIAGNOSTIC DATA: CBC today showed WBC count of 8.8, hemoglobin of 8.8, MCV of 92, and platelet of 324. Renal function panel showed sodium 139, potassium 4.4, chloride 106, CO2 of 25, BUN 20, creatinine 1.66, glucose 95, calcium 9.5, phosphorus 4.3, and albumin 3.7. ASSESSMENT: 1. Acute kidney injury: Due to hemodynamic factors related to cardiorenal and volume depletion. Improved initially with diuretics and was further treated with some IV fluid. The patient seems euvolemic and creatinine continued to trend downwards. 2. Chronic kidney disease, stage 3: Most likely related to hypertension and diabetes. Baseline creatinine is unknown. Creatinine, however, continues to trend downwards. Today is 1.6, which is the lowest so far. 3. Hypertension: Control is acceptable. 4. Volume status: The patient is euvolemic or very close to euvolemic. There is no need for diuretics at this time. It is anticipated that the patient will eventually be on diuretics when oral intake improves. We will monitor the patient closely and start diuretics in the next day or two. 5. Anemia in chronic kidney disease: Status post iron therapy. We will continue JAD. 6. Metabolic acidosis: Resolved. 7. Rhabdomyolysis: Resolved. DISPOSITION: The patient can be discharged from Nephrology point of view. He, however, needs to follow up in the office in 1 to 2 weeks with repeat labs. Job ID: [id number]
[2019-09-22 11:58] VITALS: BP 144/81
--- NOTE | 2019-09-22 13:37 | EKG ---
Test Reason : ROSC Blood Pressure : / mmHG Vent. Rate : 102 BPM Atrial Rate : 105 BPM P-R Int : 000 ms QRS Dur : 086 ms QT Int : 378 ms P-R-T Axes : 000 -11 033 degrees QTc Int : 492 ms Atrial fibrillation with rapid ventricular response Abnormal ECG Confirmed by IVANIA GUIDO ([id number]), editor & co founder MARCK HARRISON ([id number] on 09/22/2019 1:37:02 PM Referred By: Confirmed By:IVANIA GUIDO
[2019-09-22] MEDS ORDERED: Atorvastatin Calcium 40 MG TAB PO SCH (21:00)
--- NOTE | 2019-09-24 10:01 | DIS ---
DATE OF ADMISSION: 09/07/2019 DATE OF DISCHARGE: 09/22/2019 DISCHARGE DIAGNOSES: As of the followin. [id number] cardiac arrest. 2. Chronic deep venous thrombosis, status post IVC filter in the past. 3. Acute on chronic diastolic heart failure. 4. Acute encephalopathy. 5. Acute kidney injury. 6. Possible anoxic brain injury. 7. He was also found to have paroxysmal atrial fibrillation. HOSPITAL COURSE: The patient is a 58-year-old male, who initially presented to the hospital on September 06. He presented to the ER after he was found down by his . At this time, EMS was called. He underwent CPR, chest compressions, return of spontaneous circulation. He was then cooled in the ICU. His rhythm was undetermined, not sure if it was VFib versus ventricular tachycardia. He was given rounds of epinephrine and additional with CPR. At this time, he did have significant volume overload and he was admitted to the ICU. The patient at this time was also treated with broad-spectrum antibiotics for possible pneumonia. He had an echocardiogram which indicated severe concentric left ventricular hypertrophy, EF of 50% to 55%. He was seen again as mentioned by Cardiology. He did have significant worsening renal failure. At this time, he had ultrasound which was negative. He also had clean room operator, who was consulted. The patient was found to be supratherapeutic. His INR was 11.5. I believe he has a history of chronic lower extremity DVTs, PE was unlikely a cause of his cardiac arrest. His cardiac arrest etiology was very unknown. His creatinine over the hospital stay improved. He was in between and started back on Neurontin, which he was at home. His creatinine worsens at this time and this was stopped. He did not undergo cardiac catheterization because of his recent acute kidney injury and there was concern for possible worsening and also ending up on dialysis. At this time, patient did undergo a nuclear stress test, which indicated that his EF was and wall motion exam was normal. Also given his nature of cardiac arrest and unclear source, he underwent an ICD placement by Electrophysiology. The patient will be discharged to intermediate facility for rehabilitation. I have started him back on the Coumadin. I did speak with Electrophysiology, who stated that they wanted about 3 days and then it should be okay to start him back on full dose of his anticoagulation. I have slowly started his Coumadin. His INR was 1.4 on discharge and they will continue to titrate it up to a goal between 2 and 3. The patient as I mentioned, does have an IVC filter. MEDICATIONS: His home medications are as of the following. He is on: 1. Tramadol 50 mg q.12 hours p.r.n. 2. Warfarin, he is going home with 5 mg daily. 3. Insulin 60 units daily. 4. Keflex 500 mg q.6 hours for 7 days. 5. Coreg 25 b.i.d. 6. Atorvastatin 40 mg at bedtime. 7. Amlodipine 2.5 daily. 8. Tylenol regular strength. 9. He will not be getting because of his kidney injury. We will also hold off on his diuretics. PHYSICAL EXAMINATION: VITAL SIGNS: Temperature 98.5, 89, 13, 96% on room air, and 144/81. GENERAL: He is awake, alert, and oriented x3. Does not appear in any distress. CV: S1, S2 present. No murmurs, rubs, or gallops. ABDOMEN: Soft and nontender. Bowel sounds are present x2. His H and H are stable at 8.8. His creatinine on discharge was 1.6 compared to his previous creatinine, which was as high as 3.42. The patient will follow up with Cardiology, Nephrology, and his primary care. Job ID: [id number]
== END 2019-09-22 14:15 | DRG 226 ==
LOC: ERS 20:53 → EDBD 20:53 → CCU 09-07 00:18 → 2NO 09-13 12:44
PROVIDERS: ADMIT Internal Medicine; ATTEND Internal Medicine
PROC: 30243N1 Transfusion of Nonautologous Red Blood Cells into Central Vein, Percutaneous Approach (ICD-10-PCS; 2019-09-06)
PROC: 5A1945Z Respiratory Ventilation, 24-96 Consecutive Hours (ICD-10-PCS; 2019-09-06)
PROC: 0BH17EZ Insertion of Endotracheal Airway into Trachea, Via Natural or Artificial Opening (ICD-10-PCS; 2019-09-06)
PROC: 02HV33Z Insertion of Infusion Device into Superior Vena Cava, Percutaneous Approach (ICD-10-PCS; 2019-09-06)
PROC: 5A12012 Performance of Cardiac Output, Single, Manual (ICD-10-PCS; 2019-09-06)
PROC: 0JH608Z Insertion of Defibrillator Generator into Chest Subcutaneous Tissue and Fascia, Open Approach (ICD-10-PCS; principal; 2019-09-20)
PROC: 02HK3KZ Insertion of Defibrillator Lead into Right Ventricle, Percutaneous Approach (ICD-10-PCS; 2019-09-20)
PROC: 02H63KZ Insertion of Defibrillator Lead into Right Atrium, Percutaneous Approach (ICD-10-PCS; 2019-09-20)
DX: I46.9 Cardiac arrest, cause unspecified (principal); I50.33 Acute on chronic diastolic (congestive) heart failure; J96.21 Acute and chronic respiratory failure with hypoxia; J18.9 Pneumonia, unspecified organism; N17.9 Acute kidney failure, unspecified; G93.1 Anoxic brain damage, not elsewhere classified; M62.82 Rhabdomyolysis; E87.0 Hyperosmolality and hypernatremia; E87.1 Hypo-osmolality and hyponatremia; E87.2 Acidosis; I82.512 Chronic embolism and thrombosis of left femoral vein; I82.532 Chronic embolism and thrombosis of left popliteal vein; I82.542 Chronic embolism and thrombosis of left tibial vein; N39.0 Urinary tract infection, site not specified; R78.81 Bacteremia; G93.49 Other encephalopathy; N18.4 Chronic kidney disease, stage 4 (severe); I13.0 Hypertensive heart and chronic kidney disease with heart failure and stage 1 through stage 4 chronic kidney disease, or unspecified chronic kidney disease; I48.21 Permanent atrial fibrillation; I48.0 Paroxysmal atrial fibrillation; E78.5 Hyperlipidemia, unspecified; E66.9 Obesity, unspecified; I34.0 Nonrheumatic mitral (valve) insufficiency; E11.22 Type 2 diabetes mellitus with diabetic chronic kidney disease; D63.1 Anemia in chronic kidney disease; B96.20 Unspecified Escherichia coli [E. coli] as the cause of diseases classified elsewhere; T50.2X5A Adverse effect of carbonic-anhydrase inhibitors, benzothiadiazides and other diuretics, initial encounter; E87.6 Hypokalemia; Z86.711 Personal history of pulmonary embolism; Z87.891 Personal history of nicotine dependence; Z79.899 Other long term (current) drug therapy; Z79.4 Long term (current) use of insulin; Z79.01 Long term (current) use of anticoagulants; Z28.82 Immunization not carried out because of caregiver refusal; Z68.30 Body mass index [BMI] 30.0-30.9, adult; Z78.1 Physical restraint status
CPT/HCPCS: 33249; 36005; 36415; 36416; 36430; 36556; 36620; 51702; 70450; 71045; 71046; 71275; 74177; 75820; 76770; 78452; 78582; 80048; 80053; 80069; 80076; 80202; 80306; 81001; 81003; 81015; 82040; 82550; 82553; 82570; 82728; 82805; 83540; 83550; 83605; 83735; 83880; 84100; 84156; 84300; 84439; 84443; 84484; 84540; 85007; 85025; 85027; 85379; 85384; 85610; 85730; 86850; 86900; 86901; 87077; 87086; 87149; 87186; 87804; 92950; 93005; 93017; 93306; 93970; 94002; 94003; 94640; 96365; 96366; 96368; 96375; 96376; 99152; 99153; 99292; A9500; A9540; A9558; C1721; C1777; C1898; C9132; J0690; J0692; J1160; J1200; J1940; J2001; J2060; J2250; J2543; J2704; J2785; J2916; J3010; J3370; J3430; J3480; J3490; J7050; J7070; J7620; P9016; Q5105; Q9967; S0028